=== PATIENT | female | born 1975 | race Caucasian/White ===

== ENCOUNTER 2024-06-03 16:25 | Outpatient (CLI) | payer OTHER, SELFPAY ==
--- OUTSIDE RECORDS SUMMARY | 2024-06-03 16:28 | XMS_ITS | Encounter Summary ---
Author Organization [facility] Address [address] [place] [address] Phone Care Team Providers Care Global Clinical Leader Name Role Phone Shayy Church MD Primary Care Provider [phone] Yumiko Perera MD Unavailable + -[phone] Nanda Ch Primary Care Provider + Lilly Genao APRN, [facility] Unavailable Jayro Reynolds MD Unavailable Reason for Referral * Radiology Services (Routine) - Closed Specialty Diagnoses / Procedures Referred By Gal parekh Referred To Contact Radiology Diagnoses Preoperative examination Pre-op testing Procedures EKG 12 LEAD Josef Luevano MD Phone: tel: fax: Referral ID Status Reason Start Date Expiration Date Visits Re quested Visits Authorized [id number] Closed 07/13/2021 1 1 * Radiology Services (Routine) - Closed Specialty Diagnoses / Procedures Referred By Gal parekh Referred To Contact Radiology Diagnoses Preoperative examination Pre-op testing Procedures XR CHEST 2 VIEWS Josef Luevano MD Phone: tel: fax: Referral ID Status Reason Start Date Expiration Date Visits Re quested Visits Authorized [id number] Closed 07/13/2021 1 1 Encounter Details Date Type Department Care Team (Latest Contact Info) Description 07/13/2021 Transcribe Orders [facility] Preop/Pacu II [address] [place] [address] Josef Luevano MD [address] [place] [address] Preoperative examination (Primary Dx); Pre-op testing Social History Tobacco Use Types Packs/Day Years Used Date Smoking Tobacco: Never Smokeless Tobacco: Never Alcohol Use Standard Drinks/Week Comments No 0 (1 standard drink = 0.6 oz pur e alcohol) Personal choice AUDIT-C Answer Date Recorded Q1: How often do you have a drink containing alc ohol? Never 01/15/2020 Average Number of Drinks Not on file 020 Frequency of Binge Drinking Not on file 12/24 PHQ-2 Answer Date Recorded Total Score - Questions 1-9 0 020 04/2021 Education Answer Date Recorded What is the highest level of school you have completed or the highest degree you have received? 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 No / Unsure 07/13/2021 11:07 AM CDT documented as of this encounter Plan of Treatment Upcoming Encounters Date Type Department Care Team (Late st Contact Info) Description 06/11/2024 7:00 AM MEDIA STRATEGIST Appointment [facility] Mammography [address] [place] [address] Nanda Ch, PAC [address] [place] [address] 10/04/2024 3:00 PM CDT Office Visit [facility] - Family Medicine [facility] [address] [place] [address] Nanda Ch, PAC [address] [place] [address] documented as of this encounter Goals Goal Patient Goal Type Associated Problems Recent Progress Patient-Stated? Author Patient to have decrease in the frequency and intensity of anxious symptoms over next 10 sessions Behavioral Health On track(2020 11:26 AM MEDIA STRATEGIST) No Roro Monae, RANDI Note: to have reduction of anxiety symptoms. Goal Reviewed with: patient Readiness to change: Thinking about making a change Department associated with goal: [facility] Steps to achieve goal: to attend monthly, counseling sessions. to identify, verbalize and process at least three contributing factors/triggers to anxiety. to identify and verbalize at least three actions/skills to prevent and/or cope with anxiety. to put into action, at least one time weekly, for one month, an action/skill to prevent and or cope with anxiety. documented as of this encounter Results * XR CHEST 2 VIEWS (07/13/2021 1:27 PM CDT) Anatomical Region Laterality Modality Chest N/A Digital Radiogra phy 07/13/2021 3:43 PM CDT Impressions 07/13/2021 3:46 PM CDT IMPRESSION: No active cardiopulmonary disease. Narrative 07/13/2021 3:46 PM CDT EXAM DESCRIPTION: XR CHEST 2 VIEWS REASON FOR STUDY: Encounter for other preprocedural examination , right shoulder surgery preoperative TECHNIQUE: Frontal and lateral radiographic views of the chest acquired. COMPARISON: 06/15/2021 FINDINGS: LUNGS/PLEURA: No focal consolidation or pneumothorax. No pleural effusion. HEART/MEDIASTINUM: Heart size is normal. Normal mediastinal and hilar contours. HARDWARE/LINES/TUBES: None. BONES: No acute findings. OTHER: No other significant finding. THIS IS AN ELECTRONICALLY VERIFIED FINAL REPORT 07/13/2021 3:43 PM - Electronically signed by Brandon Thompson M.D. RW: CHARITY Report ID: [id number] Reading Location: [id number] Procedure Note Brandon Thompson MD - 07/13/2021 EXAM DESCRIPTION: XR CHEST 2 VIEWS REASON FOR STUDY: Encounter for other preprocedural examination , right shoulder surgery preoperative TECHNIQUE: Frontal and lateral radiographic views of the chest acquired. COMPARISON: 06/15/2021 FINDINGS: LUNGS/PLEURA: No focal consolidation or pneumothorax. No pleural effusion. HEART/MEDIASTINUM: Heart size is normal. Normal mediastinal and hilar contours. HARDWARE/LINES/TUBES: None. BONES: No acute findings. OTHER: No other significant finding. THIS IS AN ELECTRONICALLY VERIFIED FINAL REPORT 07/13/2021 3:43 PM - Electronically signed by Brandon Thompson M.D. RW: CHARITY Report ID: [id number] Reading Location: [id number] IMPRESSION: No active cardiopulmonary disease. Josef Luevano MD IMG DIAGNOSTIC ORDERABLES Final Result * EKG 12 LEAD (07/13/2021 1:11 PM CDT) Ventricular Rate BPM EXTERNAL EKG Atrial Rate BPM EXTERNAL EKG P-R Interval 146 ms EXTERNAL EKG QRS Duration 74 ms EXTERNAL EKG Q-T Duration 410 ms EXTERNAL EKG QTC CALCULATION 440 ms EXTERNAL EKG P [place] -39 degrees EXTERNAL EKG R [place] 76 degrees EXTERNAL EKG T [place] 7 degrees EXTERNAL EKG 07/13/2021 1:11 PM CDT Impressions EXTERNAL EKG - 07/14/2021 8:56 AM CDT Sinus rhythm Low QRS voltages in precordial leads Comparison Summary: Descriptive differences only Summary: Abnormal ECG Compared with:06/15/2021 11:00 AM; 11/01/2018 10:23 AM No significant changes noted Confirmed by Mita Baker [id number] on 07/14/2021 8:56:50 AM Narrative Procedure Note Lauren Fan MD - 07/14/2021 IMPRESSION: Sinus rhythm Low QRS voltages in precordial leads Comparison Summary: Descriptive differences only Summary: Abnormal ECG Compared with:06/15/2021 11:00 AM; 11/01/2018 10:23 AM No significant changes noted Confirmed by Mita Baker [id number] on 07/14/2021 8:56:50 AM Josef Luevano MD IMG ECG ORDERABLES Final Result Performing Organization Address City/[facility]/ZIP Co de Phone Number EXTERNAL EKG * C-REACTIVE PROTEIN (CRP) QUANT (07/13/2021 1:02 PM CDT) C-REACTIVE PROTEIN 0.49 <0.50 mg/dL 07/13/2021 3:14 PM CDT [facility] Blood Venipuncture / Unknown 07/13/2021 1:02 PM CDT 07/13/2021 1:16 PM CDT Josef Luevano MD CHEMISTRY ORDERABLES Final Resul t [facility] [address] [place] [address] * ERYTHROCYTE SEDIMENTATION RATE (ESR) (07/13/2021 1:02 PM CDT) ESR (SED RATE, ERYTHROCYTE SEDIMENTATION RATE) 11 <20 mm/h 07/13/2021 1:25 PM CDT [facility] Comment: Patients presenting with increased level of fibrinogen, gamma globulins, or abnormally shaped RBCs could affect the results for the erythrocyte sedimentation rate (ESR). Results should be clinically correlated. Blood Venipuncture / Unknown 07/13/2021 1:02 PM CDT 07/13/2021 1:17 PM CDT Josef Luevano MD HEMATOLOGY ORDERABLES Final Resu lt Performing Organization Address [facility]/ZIP Co de Phone Number [facility] [address] [place] [address] * URIC ACID (BLOOD ASSAY) (07/13/2021 1:02 PM CDT) URIC ACID 5.7 2.4 - 5.7 mg/dL 07/13/2021 3:14 PM CDT [facility] Blood Venipuncture / Unknown 07/13/2021 1:02 PM CDT 07/13/2021 1:16 PM CDT Josef Luevano MD CHEMISTRY ORDERABLES Final Resul t Performing Organization Address [facility] Co de Phone Number [facility] [address] [place] [address] * ANTINUCLEAR ANTIBODY (MAGDALENE), TITER IF POS (07/13/2021 1:02 PM CDT) Pathologist [facility] MAGDALENE SCREEN Negative Negative titer 07/14/2021 2:22 PM CDT [facility] Comment: Antinuclear autoantibodies not detected by IFA at a 1:80 screening dilution of HEp-2 cells. Blood Venipuncture / Unknown 07/13/2021 1:02 PM CDT 07/13/2021 1:17 PM CDT Josef Luevano MD IMMUNOLOGY ORDERABLES Final Resu lt Performing Organization Address City/[facility]/ZIP Co de Phone Number [facility] [address] [place] [address], [place] * RHEUMATOID FACTOR (RFQT) QUANT (07/13/2021 1:02 PM CDT) RHEUMATOID FACTOR QT <11 <14 IU/mL 07/13/2021 3:14 PM CDT [facility] Blood Venipuncture / Unknown 07/13/2021 1:02 PM CDT 07/13/2021 1:16 PM CDT Narrative [facility] - 07/13/2021 3:14 PM CDT RHEUMATOID FACTORS CAN BE FOUND IN RHEUMATOID ARTHRITIS, SYPHILIS, VIRAL INFECTIONS, LEPROSY, CHRONIC LIVER DISEASE, NEOPLASMS, AND OTHER INFLAMMATORY CONDITIONS. RF PREVALENCE ALSO INCREASES WITH AGE. THUS A POSITIVE TEST IS NOT RESTRICTED TO RA. CONVERSELY, A NEGATIVE TEST DOES NOT RULE OUT RA, RHEUMATOID FACTORS ARE NOT DETECTABLE IN 10% OF ADULTS WITH THE DISEASE. us Josef Luevano MD CHEMISTRY ORDERABLES Final Resul t [facility] [address] [place] [address] documented in this encounter Visit Diagnoses Diagnosis Preoperative examination- Primary Preoperative examination, unspecified Pre-op testing Preoperative examination, unspecified Preoperative examination Preoperative examination, unspecified Pre-op testing Preoperative examination, unspecified Preoperative examination Preoperative examination, unspecified Pre-op testing Preoperative examination, unspecified Visit for screening mammogram Other screening mammogram documented in this encounter Additional Health Concerns Infection Onset Date Last Indicated Resolved Time COVID - 19 05/28/2023 05/28/2023 06/07/2023 12:1 6 AM MEDIA STRATEGIST Respiratory Rule-Out 05/28/2023 05/28/2023 024 2:29 PM MEDIA STRATEGIST Assessment Noted Time PHQ-9 Depression Total Score: 0 05/25/19 12:37 PM MEDIA STRATEGIST documented as of this encounter Care Teams Global Clinical Leader Relationship Specialty Start Date End Date Shayy Church MD [address] [place] [address] PCP - General Family Medicine 06/15/17 04/09/23 Nanda Ch, ASHLEY [address] [place] [address] PCP - General Physician Thermostat Repairer 04/10/23 Yumiko Perera MD [address] [place] [address] Consulting Physician Obstetrics & Gynecology 11/29/17 Lilly Genao APRN, [employer] [facility] [address] [place] [address] Nurse Practitioner Advanced Practice Nurse 11/24/22 Jayro Reynolds MD [address] [address] Consulting Physician Clinical Cardiac Electrophysiology 05/17/24 documented as of this encounter
--- OUTSIDE RECORDS SUMMARY | 2024-06-03 16:28 | XMS_ITS | Clinical Summary ---
Author Organization [facility] Address [facility] [place] [address] Care Team Providers Care Gang Drill Press Operator Name Role Phone Shayy Church MD Primary Care Provider Allergies Active Allergy Reactions Criticality Noted Date Comments Cephalexin Hives,Rash Medium 01/31/2019 Latex Rash Medium 07/01/2022 Sulfamethoxazole Fever,Vomiting,Hive s Medium Sulfamethoxazole-Trimethop rim Fever,Hives,Rash,Vo miting High 11/30/2009 Trimethoprim Fever,Vomiting,Naus ea only Medium Other reaction(s): Fever, Vomiting, hives Medications ketorolac 15 mg/mL cartridge inject 2 milliliter by intramuscular route every 6 hours as needed for up to 5 days total use 0 Cartridge 0 03/24/20 16 Active Additional Information Patient not taking.Reported on 09/09/2022 fluticasone propionate (FLONASE) 50 mcg/actuation nasal spray Administer 1-2 sprays into affected nostril(s) daily 06/15/19 18 Active ondansetron ODT (ZOFRAN-ODT) [address] 4 mg under the tongue every 8 hours as needed 07/17/19 15 Active norethindrone-e.es tradioL-iron (Blisovi 24 Fe) 1 mg-20 mcg (24)/75 mg (4) per tabletIndications: Oral contraceptive pill surveillance Take 1 tablet by mouth daily 84 tablet 4 11/04/19 20 Active albuterol HFA (PROVENTIL HFA,VENTOLIN HFA,PROAIR HFA) 90 mcg/actuation inhaler Active azelastine (ASTELIN) 137 mcg (0.1 %) nasal spray Active FLUoxetine (PROzac) 20 mg capsule Take 1 capsule (20 mg total) by mouth daily Active traZODone (DESYREL) 50 mg tablet trazodone 50 mg tablet Active hydrOXYchloroQUINE (PLAQUENIL) 200 mg tablet Take 200 mg by mouth 2 (two) times a day Active ARIPiprazole (ABILIFY) 10 mg tablet Take 1 tablet (10 mg total) by mouth nightly at bedtime 08/09/19 23 Active lamoTRIgine (LaMICtal) 25 mg tablet TAKE 1 TABLET BY MOUTH DAILY FOR 2 WEEKS THEN TAKE 2 TABLETS BY MOUTH DAILY 08/04/19 23 Active spironolactone (ALDACTONE) 50 mg tablet Take 1 tablet (50 mg total) by mouth daily 03/23/[address] (PROTONIX) 40 mg EC tablet Take 1 tablet (40 mg total) by mouth 2 (two) times a day 03/12/20 23 Active Active Problems Problem Noted Date Diagnosed Date Primary osteoarthritis of right knee 01/03/2023 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 Assessment & Plan (07/06/2021 2:34 PM CDT): Referral to Speech therapy for Spasmodic Dysphonia Hiatal hernia 01/04/2021 Encounter for colonoscopy du e to history of adenomatous colonic polyps 10/30/2020 Recurrent Clostridioides difficile diarrhea 11/2020 Gastroesophageal reflux disease without esophagi tis 04/04/2019 Esophagitis 11/29/2017 Anxiety 06/15/2017 Chronic bilateral low back pain without sciatica 03/10/2017 Pain in both hands 01/13/2017 Rheumatoid arthritis of mult iple sites without rheumatoid factor (CMS/HCC) 11/15/2016 High risk medication use 11/15/2016 Elevated liver enzymes 11/15/2016 Allergy to sulfa drugs 11/15/2016 BMI 40.0-44.9, adult 11/15/2016 Long-term current use of hig h risk medication other than anticoagulant 10/10/2016 Arthralgia 10/10/2016 Rash 10/10/2016 Cellulitis and abscess of groin 03/31/2016 Overview (07/29/2016): Cellulitis and abscess of groin Generalized anxiety disorder 01/23/2015 Essential hypertension, benign 08/20/2014 Migraine 04/05/2014 Overview (07/29/2016): Migraine Asthma 11/30/2009 Migraine with aura 09/08/2008 Resolved Problems Problem Noted Date Diagnosed Date Resolved Date Non morbid obesity due to excess calories 11/15/2016 06/29/2018 Rheumatoid arthritis involvi ng multiple sites ([facility]) 10/10/2016 04/21/2017 Surgical History Surgery Date Site/Laterality Comments CHOLECYSTECTOMY 04/24/2009 - 04/23/2010 DILATION AND CURETTAGE OF UTERUS 04/24/2006 - 04/23/2007 miscarriage KNEE ARTHROSCOPY 04/24/1998 - 04/23/1999 Right KNEE ARTHROSCOPY 04/24/1996 - 04/23/1997 Left SHOULDER ARTHROSCOPY W/ SUBACROMIAL DECOMPRESSION AND DISTAL CLAVICLE EXCISION 04/24/2010 - 04/23/2011 Left CERVICAL BIOPSY W/ LOOP ELEC TRODE EXCISION 04/24/2007 - 04/23/2008 PILONIDAL CYSTECTOMY 04/24/2014 - 04/23/2015 KNEE ARTHROSCOPY SHOULDER SURGERY Medical History Medical History Date Comments Migraine headache Rheumatoid arthritis (HCC) Seasonal allergies Asthma Abnormal Pap smear of cervix 2006 PTSD (post-traumatic stress disorder) Anxiety Gastric reflux Hiatal hernia Family History Medical History Relation Name Comments Raynaud syndrome Brother Hypertension Father Heart failure Maternal Grandmother Osteopenia Mother Heart disease Paternal Grandfather COD Mitral valve prolapse Sister Relation Name Status Comments Brother Father Maternal Grandmother Mother Paternal Grandfather Sister (Age 47) Social History Tobacco Use Types Packs/Day Years Used Date Smoking Tobacco: Never Smokeless Tobacco: Never Tobacco Cessation:Counseling Given: Yes Alcohol Use Standard Drinks/Week Comments No 0 (1 standard drink = 0.6 oz pur e alcohol) AUDIT-C Answer Date Recorded Q1: How often do you have a drink containing alcohol? Never 10/02/2023 Q2: How many drinks containi ng alcohol do you have on a typical day when you are drinking? Patient does not drink Q3: How often do you have si x or more drinks on one occasion? 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 Not on file Not on file Obstetrics History Para Term AB IAB SAB Ectopic Multiple Livin g Live Births 1 0 0 0 1 0 1 0 0 0 0 Date Outcome GA Total Labor Labor/2nd/3rd Weight Sex Type Anes PTL Chichi A1 A5 Name Clin SAB Last Filed Vital Signs Vital Sign Reading Time Taken Comments Blood Pressure 130/82 10/02/2023 10:48 AM CDT Pulse 72 10/02/2023 10:48 AM CDT Temperature 36.2 C (97.1 F) 07/06/2021 2:10 PM CDT Respiratory Rate 18 10/02/2023 10:48 AM CDT Oxygen Saturation 96% 07/06/2021 2:10 PM CDT Inhaled Oxygen Concentration - - Weight 131.5 kg (290 lb) 10/02/2023 10:48 AM CDT Height 172.7 cm (5' 8 ) 10/02/2023 10:48 AM CDT Body Mass Index 44.09 10/02/2023 10:48 AM CDT Plan of Treatment Health Maintenance Due Date Last Done Comments Colon Cancer Screening-Colonoscopy 1977 Depression Screening 1977 Hepatitis C Screening 1977 Pneumococcal vaccine <65 (1 of 2 - PCV) 1983 Hepatitis B Screening 1995 Zoster Vaccine (1 of 2) 1996 DTaP/Tdap/Td Vaccine (2 - Td or Tdap) 03/17/2018 03/17/2008 Cervical Cancer Screening 11/03/20202019, 04/21/2017, 03/25/2016, Additional history exists Regular Well Visit/Exam 18-64 11/03/2020 11/04/2019, 06/29/2018, 04/21/2017 Influenza Vaccine (#1) 2023 3, 01/28/2022, 01/12/2021, Additional history exists Breast Cancer Screening-Mammogram 2024 2023, 2023, 05/04/2022, Additional history exists HPV Vaccines Aged Out No longer eligi ble based on patient's age to complete this topic Procedures Procedure Name Priority Date/Time Associated Diagnosis Comments IMAGING PAP AND HPV MRNA E6/E7 Routine 11/04/2019 1:01 PM CDT Screening for malignant neoplasm of the cervix SCREENING MAMMOGRAM 2D BILATERAL Schedule Routine, Read Routine (OP Routine) 11/04/2019 12:28 PM CDT Breast cancer screening by mammogram from Last 3 Months or Most Recently Relevant to Health Maintenance Results * Imaging Pap and HPV mRNA E6/E7 (11/04/2019 1:01 PM CDT) CLINICAL INFORMATION: [facility] Comment:Information not prov ided LMP [facility] Comment:10/07/19 Previous Pap [facility] Comment:2016 - NEGATIVE Prev. Bx [facility] Comment:INFORMATION NOT PROV IDED SOURCE: [facility] Comment:Cervix, Endocervix Pap, specimen adequacy [facility] Comment: Satisfactory for evaluation. Endocervical/transformation zone component present. HPV interp [facility] Comment:Negative for intraep ithelial lesion or malignancy. COMMENTS [facility] Comment: This Pap test has been evaluated with computer assisted technology. Dry Finisher Padilla [facility] Comment: CAROL, CT(ASCP) CT screening location: [place] [address] [place] [address] Review marketing campaign analyst [facility] Comment: MLO, CT(ASCP) CT screening location: [place] [address] [address] Montoya [facility] Comment [facility] Comment: EXPLANATORY NOTE: The Pap is a screening test for cervical cancer. It is not a diagnostic test and is subject to false negative and false positive results. It is most reliable when a satisfactory sample, regularly obtained, is submitted with relevant clinical findings and history, and when the Pap result is evaluated along with historic and current clinical information. Human papillomavirus RNA, High Risk E6/E7 Not Detected Not Detected [facility] Comment: This test was performed using the APTIMA HPV Assay ([employer] This assay detects E6/E7 viral messenger RNA (mRNA) from 14 high-risk HPV types (16,18,31,33,35,39,45,51,52,56,58,59,66,68). The analytical performance characteristics of this assay have been determined by [employer]. The modifications have not been cleared or approved by the FDA. This assay has been validated pursuant to the CLIA regulations and is used for clinical purposes. Fluid 11/04/2019 1:01 PM CDT 11/05/2019 5:22 AM CDT Naomi Stern MD LAB PATHOLOGY ORDERAB LES Final Result [facility] [address] [place] [address] [facility] [address] [place] [address] * Screening Mammogram 2D Bilateral (11/04/2019 12:28 PM CDT) Anatomical Region Laterality Modality Breast Bilateral Mammography Narrative 11/12/2019 2:34 PM CDT BILATERAL DIGITAL MAMMOGRAPHY The present examination has been compared to prior imaging studies dated in 06/29/2018. Mammography Findings CAD (computer-aided detection) software was utilized. The breasts are almost entirely fat. No masses, significant calcifications or other abnormalities are seen. Impression There is no mammographic evidence of malignancy. Screening mammogram in 1 year is recommended. BI-RADS Category 1: Negative PATIENT LETTER SENT Naomi Stern MD IMG MAMMO PROCEDURES Final Result from Last 3 Months or Most Recently Relevant to Health Maintenance Insurance AETNA [facility] PPO [place] [facility] OPEN ACCESS [facility] ACCESS [facility] Care Teams Gang Drill Press Operator Relationship Specialty Start Date End Date Shayy Church MD PCP - General Family Medicine 06/22/18
--- OUTSIDE RECORDS SUMMARY | 2024-06-03 16:28 | XMS_ITS | Referral Summary ---
Author Organization [facility] Address [facility] [place] [address] Care Team Providers Care Supervisor Electronics Processing Name Role Phone Shayy Church MD Primary [...] 06/29/2018 Rheumatoid arthritis involvi ng multiple sites (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 Bx [facility] Comment:INFORMATION NOT PROV IDED SOURCE: [facility] Comment:Cervix, Endocervix Pap, specimen adequacy [facility] Comment: Satisfactory for evaluation. Endocervical/transformation zone component present. HPV interp [facility] Comment:Negative for intraep ithelial lesion or malignancy. COMMENTS [facility] Comment: This Pap test has been evaluated with computer assisted technology. Hydrographic Engineer Que [facility] Comment: CAROL, CT(ASCP) CT screening location: [place] [address] [place] [address] Review manager club [facility] Comment: MLO, CT(ASCP) CT screening location: [place] [address] [address] Montoya [facility] Comment [facility] Comment: EXPLANATORY NOTE: The Pap is [...] High Risk E6/E7 Not Detected Not Detected [facility] [employer] [facility] Comment: This test was performed using the APTIMA HPV Assay ([employer] This assay detects E6/E7 viral messenger RNA (mRNA) from 14 high-risk HPV types (16,18,31,33,35,39,45,51,52,56,58,59,66,68). The analytical performance characteristics of this assay have been determined by [employer]. The modifications have not been cleared or approved by the FDA. This assay has been validated pursuant to the CLIA regulations and is used for clinical purposes. Fluid 11/04/2019 1:01 PM CDT 11/05/2019 5:22 AM CDT Naomi Stern MD LAB PATHOLOGY ORDERAB LES Final Result [facility] [address] [place] [address] [facility] [address] [place] [address] * Screening Mammogram 2D Bilateral (11/04/2019 12:28 [...] Recently Relevant to Health Maintenance Insurance [employer] [facility] PPO [facility] OPEN ACCESS [facility] CHOICE [employer]IG[employer] Care Teams Supervisor Electronics Processing Relationship Specialty Start Date End Date Shayy Church MD PCP - General Family Medicine 06/22/18
--- OUTSIDE RECORDS SUMMARY | 2024-06-03 16:28 | XMS_ITS | Encounter Summary ---
Author Organization [facility] Address [address] [place] [address] Phone Care Team Providers Care Welfare Officer Name Role Phone Shayy Church MD Primary Care Provider [phone] Yumiko Perera MD Unavailable + [phone] Nanda Ch Primary Care Provider + Lilly Genao APRN, MANAGER COMPLETIONS Unavailable Jayro Reynolds MD Unavailable Encounter Details Date Type Department Care Team (Late st Contact Info) Description 07/13/2021 Transcribe Orders [facility] Preop/Pacu II [address] [place] [id number] Saul Coley, DO [address] [place] [address] Pre-op testing (Primary Dx) Social History Tobacco Use Types Packs/Day Years [...] Recorded Total Score - Questions 1-9 0 04/2021 Education Answer Date Recorded What is the highest level of school you have completed or the highest degree you have received? Master's degree (e.g., MA, MS, Sly, MEd, HOUSE SERVANT, DIANA) 12/11/2019 Sexually Active Control Partners Comments [...] st Contact Info) Description 06/11/2024 7:00 AM NETWORKING TECHNOLOGY INSTRUCTOR Appointment [facility] Mammography [address] [place] [address] Nanda Ch, PAC [address] [place] [address] 10/04/2024 3:00 PM CDT Office Visit [facility] - Family [facility] [address] [place] [address] Nanda Ch PAC [address] [place] [address] documented as of this encounter Goals Goal Patient Goal Type Associated Problems Recent Progress Patient-Stated? Author Patient to have decrease in the frequency and intensity of anxious symptoms over next 10 sessions Behavioral Health On track(2020 11:26 AM NETWORKING TECHNOLOGY INSTRUCTOR) No Norma Monaeci M, COVERER Note: to have reduction of anxiety symptoms. Goal Reviewed with: patient Readiness to change: Thinking about making a change Department associated with goal: [facility] Steps to achieve [...] documented as of this encounter Results * SARS-COV-2 BY MOLECULAR (07/26/2021 3:08 PM CDT) SARSCOV2 NOT DETECTED (Referenc e Range for this test is Not Detected) [facility] ID NOW B 07/26/2021 3:[address] [facility] Comment:This test was perfor med by a MOLECULAR, NON-PCR method Other NASAL STRUCTURE / Unknown Non-Phlebotomy Collection / Unknown 07/26/2021 3:08 PM CDT 07/26/2021 3:[address] [facility] - 07/26/2021 3:51 PM CDT This test has been authorized by the FDA under an Emergency Use Authorization (EUA) only. Negative results should be treated as presumptive and, if inconsistent with clinical signs and symptoms or necessary for patient management, the patient should be tested with an alternative molecular assay. Negative results do not preclude SARS-CoV-2 infection or any other respiratory pathogen. Additional information for Clinicians can be found at: https://www.fda.gov/media/193340/download Additional information for Patients can be found at: https://www.fda.gov/media/405188/download Saul Coley DO MICROBIOLOGY - GENE RAL ORDERABLES Final Result [facility] [address] [place] [address] documented in this encounter Visit Diagnoses Diagnosis Pre-op testing- Primary Preoperative examination, unspecified Visit for screening mammogram Other screening mammogram documented in this encounter Additional Health Concerns Infection Onset Date Last Indicated Resolved Time COVID - 19 05/28/2023 05/28/2023 06/07/2023 12:1 6 AM NETWORKING TECHNOLOGY INSTRUCTOR Respiratory Rule-Out 05/28/2023 05/28/2023 024 2:29 PM NETWORKING TECHNOLOGY INSTRUCTOR Assessment Noted Time PHQ-9 Depression Total Score: 0 05/25/19 22 12:37 PM NETWORKING TECHNOLOGY INSTRUCTOR documented as of this encounter Care Teams Welfare Officer Relationship Specialty Start Date End Date Shayy Church MD [address] [place] [address] PCP - General Family Medicine 06/15/17 04/09/23 Nanda Ch PAC [address] [place] [address] PCP - General Physician Military Logistics Specialist 04/10/23 Yumiko Perera MD [address] [place] [address] Consulting Physician Obstetrics & Gynecology 11/29/17 Lilly Genao APRN, MANAGER COMPLETIONS [address] [facility] [place] [address] Nurse Practitioner Advanced Practice Nurse 11/24/22 Jayro Reynolds MD [address] [place] [address] [address] Consulting Physician Clinical Cardiac Electrophysiology 05/17/24 documented as of this encounter
--- OUTSIDE RECORDS SUMMARY | 2024-06-03 16:28 | XMS_ITS ---
Author Organization [facility] Address [address] [address] [address] [place] [address] Care Team Providers Care Newspaper Publisher Name Role Phone Nanda Cuevas Primary Care Provider Dave MedranoAdriana Unavailable [phone] Allergies Allergen (clinical drug ingredient) Drug/Non Drug Allergy documented on EMR Reaction Allergy Type Onset Date Status sulfamethoxazole / trimethoprim Bactrim Unknown Drug Allergy 08/25/2017 Active Ceftin Unknown Drug Allergy 02/17/2022 Active Keflex Unknown Drug Allergy 02/17/2022 Active REASON FOR VISIT Infusion, Simponi, 239mg, 5 vials, YD Medications Medication SIG (Take, Route, Frequency, Duration) Notes Start Date End Date Status traZODone HCl 50 MG prn Oral Active FLUoxetine HCl 20 MG take 1 tablet (20 mg) by oral route once daily Oral 1 Active Dupixent Pen 300 mg/2 mL inject 2 milliliters (300 mg) by subcutaneous route every 2 weeks in the abdomen, thigh, or upper arm rotating injection sites subcutaneous [id number] *Reorder from [employer] for eRx and Interaction Alerts* Active Atenolol 25 MG TAKE 1/2 TABLET BY MOUTH DAILY Oral for 30 Days Active Lo Loestrin Fe 1 MG-10 MCG / 10 MCG Oral for 28 Days Active Tylenol 8 Hour 650 MG Oral Active Hydroxychloroquine Sulfate 200 MG 1 Oral twice a day for 90 days Active Vital Signs Temperature 97.8 degrees Fahrenheit 04/03/20 24 Blood pressure systolic 139 mm Hg 04/03/20 24 Blood pressure diastolic 87 mm Hg 024 Heart Rate 111 /min 04/03/2024 Height 68 in 04/03/2024 Weight 248 lbs 04/03/2024 BMI 37.7 kg/m2 04/03/2024 Height-cm 172.72 cm 04/03/2024 Weight-kg 112.49 kg 04/03/2024 Encounters Encounter Location Date Provider Diagnosis [facility] [address] [place] [address] 04/03/2024 Adriana Medrano Rheumatoid arthritis without rheumatoid factor, multiple sites M06.09 Assessments Encounter Date Diagnosis (ICD Code) Assessment Notes Treatment Notes Treatment Clinical Notes Section Notes 04/03/2024 Rheumatoid arthritis without rheumatoid factor, multiple sites (ICD-10 - M06.09) Plan Of Treatment Next Appt Details Follow Up: 2 Months, Reason: Provider Name:Adriana Medrano, 06/06 08:30:00 AM, [address], [address], [place], [address], Progress Notes * Yumiko STOUT EDOB:[birth year] (48 yo F)Acc No.[id number]:04/03/2024 Simponi Infusion Patient: Yumiko BASILIO Provider: Jillian MEDRANO MD :1975 A ge:48 Y S ex:Female Date:04/03/2024 Address:[address] [place] [address] Pcp:RIANNA Chowdary Subjective: * Chief Complaints: * I nfusion, Simponi, 239mg, 5 vials, YD * HPI: I nfusion: Infusion Record T ype of Infusion _ ____,Simponi Aria,?What is the dosage . 225mg dose. 25mg waste., H ow is the dose calculated . 2mg/kg, A uthorized by _ ____,Gerardo Street umber of vials to reconstitute . 5, I nfusion type _ ____,Simponi Aria, A mount . 225mg, M anufacturer _ ___ Mohan, E xpiration date 09/2026, L ot number _ __ [id number], S terile water (number of vials) . n/a, S terile water lot number N /A, s terile water MFG N /A. P re Infusion Assessment T B Screening Results PPD N /A, Q uantiferon TB Gold Results N egative on 08/16/2023, C hest Xray Results N /A, R ecent exposure to TB _ ____,N/A, A ny illness now _ ____,None. S kin Conditon D oes the patient has any skin condition no. P revious Infusion D ate of last infusion 1 , P revious infusion type? ,Simponi Aria, R eaction N o, W as patient pre treated _ ____,N/A, R esponse to previous infusion _ ____ Agrees with plan of care. I V INSERTION C atheter brand _ ___ [id number]-M-[id number], C atherter Gauge _ ____,24 ga, N eedle Length _ ___,3/4 inch, I V site accessed _ ___ RAC, N umber of attempts to access vein/port 1 , P remedication _ ____ n/a, T charly given _ __ n/a. P ATIENT MONITORING T charly infusion initated _ __ 1440, R ate of infusion _ __ 200cc/hour, I nfusion end time: _ ____ 1510. D ISPOSITION T charly IV discontinued: _ __ 151, A mount of drug administered _ ___ 225mg, N ext Infusion Date Scheduled: 0 06/06/2024. * Medical History: * Surgical History: Flor toledo, Date of Procedure: Jan 04, 2021; 2021-01-26 * Hospitalization/Major Diagno stic Procedure: * Social History: M igrated Social History: M igrated Social History: :: No Children , Exercise :: None Lately :: note : 01/26/2021 - none lately, was walking, Marital Status :: Single :: note : - Bella 11/22/2017 , Occupation :: employed :: note : - [employer] 11/22/2017 , Substance Use :: Alcohol-Does not give any significant history , Substance Use :: Tobacco :: Never. * Medications: T akingHydroxychloroquine Sulfate 200 MG Tablet 1 Oral twice a day Tylenol 8 Hour 650 MG Tablet Extended Release Oral traZODone HCl 50 MG Tablet prn Oral Dupixent Pen 300 mg/2 mL pen injector inject 2 milliliters (300 mg) by subcutaneous route every 2 weeks in the abdomen, thigh, or upper arm rotating injection sites subcutaneous [id number] , Notes to Pharmacist: *Reorder from [facility] for eRx and Interaction Alerts*FLUoxetine HCl 20 MG Tablet take 1 tablet (20 mg) by oral route once daily Oral 1 Atenolol 25 MG Tablet TAKE 1/2 TABLET BY MOUTH DAILY Oral Lo Loestrin Fe 1 MG-10 MCG / 10 MCG Tablet Oral Taking Hydroxychloroquine Sulfate 200 MG Tablet 1 Oral twice a day Taking Tylenol 8 Hour 650 MG Tablet Extended Release Oral Taking traZODone HCl 50 MG Tablet prn Oral Taking Dupixent Pen 300 mg/2 mL pen injector inject 2 milliliters (300 mg) by subcutaneous route every 2 weeks in the abdomen, thigh, or upper arm rotating injection sites subcutaneous [id number]-08 , Notes to Pharmacist: *Reorder from [facility] for eRx and Interaction Alerts*Taking FLUoxetine HCl 20 MG Tablet take 1 tablet (20 mg) by oral route once daily Oral 1 Taking Atenolol 25 MG Tablet TAKE 1/2 TABLET BY MOUTH DAILY Oral Taking Lo Loestrin Fe 1 MG-10 MCG / 10 MCG Tablet Oral * Allergies: K eflex: Allergy - Onset Date 02/17/2022actrim: Allergy - Onset Date 08/25/2017Ceftin: Allergy - Onset Date 02/17/2022 Objective: * Vitals: B P:139/87mm Hg, HR:111/min, Temp:97.8F, Wt:248lbs, Wt-k.49 kg, Ht: 68 in, Ht-cm: 172.72 cm, BMI:37.7Index, Body Surface Area: 2.32. Assessment: * Assessment: 1. R heumatoid arthritis without rheumatoid factor, multiple sites - M06.09 (Primary) ? Plan: * Treatment: * Procedure Codes: J 1602 INJECTION GOLIMUMAB 1 MG FOR IV USE, Units: 225.00 52742 THER/PROPH/DIAG IV INF, [id number] INJECTION GOLIMUMAB 1 MG FOR IV USE, Units: 25.00 , Modifiers: JW * Follow Up: 2 Months * Billing Information: * Visit Code: * Procedure Codes: J1602 INJECTION GOLIMUMAB 1 MG FOR IV USE. Units: 225.00. 61139 THER/PROPH/DIAG IV INF, INIT. J1602 INJECTION GOLIMUMAB 1 MG FOR IV USE. Units: 25.00. Modifiers: JW * CH INSPECTOR Electronically co-signed by Adriana Medrano MD on 04/03/2024 at 04:32 PM CLUTCH INSPECTOR Sign off status: Completed true * Provider: Jillian MEDRANO MD Date: 06/04/2023 Generated for Cherelle kingsley/Anthony/Vick on: 0 06/03/2024 04:28 PM CLUTCH INSPECTOR History and Physical Notes * HPI (History of Present Illness) Category Sub-Category Detail Notes Category Not es Infusion Infusion Record Type of Infusion: ,Simponi Aria What is the dosage: . 225mg dose. 25mg w aste. How is the dose calculated: . 2mg/kg Authorized by: Dr. Medrano Number of vials to reconstitute: . 5 Infusion type: ,Simponi Aria Amount: . 225mg Lead Software Tester: ____ Mohan Expiration date: 09/2026 Lot number: ___ [id number] Sterile water (number of vials): . n/a Sterile water lot number: N/A sterile water MFG: N/A Pre Infusion Assessment TB Screening Results PPD : N/A Quantiferon TB Gold Results: Negative on 08/16/2023 Chest Xray Results: N/A Recent exposure to TB: ,N/A Any illness now: ,None Skin Conditon Does the patient has any skin co ndition: no Previous Infusion Date of last infusion: 024 Previous infusion type: ,Simponi Ar ia Reaction: No Was patient pre treated: ,N/A Response to previous infusion: Agr ees with plan of care IV INSERTION Catheter brand: ____ Saf-T-Intim a Catherter Gauge: ,24 ga Needle Length: ____,3/4 inch IV site accessed: ____ RAC Number of attempts to access vein/port: 1 Premedication: n/a Time given: ___ n/a PATIENT MONITORING Time infusion initated: ___ 1 440 Rate of infusion: ___ 200cc/hour Infusion end time:: 1510 DISPOSITION Time IV discontinued:: ___ 1512 Amount of drug administered: ____ 225mg Next Infusion Date Scheduled:: 5
--- OUTSIDE RECORDS SUMMARY | 2024-06-03 16:29 | XMS_ITS ---
Author Organization [facility] wilner Address [address] [place] [address] Care Team Providers Care Knife Setter Grinder Machine Name Role Phone Nanda Cuevas Primary Care Provider Dave MedranoAdriana Unavailable [phone] Allergies Allergen (clinical drug ingredient) Drug/Non Drug Allergy documented on EMR Reaction Allergy Type Onset Date Status sulfamethoxazole / trimethoprim Bactrim Unknown Drug Allergy 08/25/2017 Active Ceftin Unknown Drug Allergy 02/17/2022 Active Keflex Unknown Drug Allergy 02/17/2022 Active REASON FOR VISIT RA Medications Medication SIG (Take, Route, Frequency, Duration) Notes Start Date End Date Status Dupixent Pen 300 mg/2 mL inject 2 milliliters (300 mg) by subcutaneous route every 2 weeks in the abdomen, thigh, or upper arm rotating injection sites subcutaneous [id number]- [id number] *Reorder from Bridge for eRx and Interaction Alerts* Active FLUoxetine HCl 20 MG take 1 tablet (20 mg) by oral route once daily Oral 1 Active traZODone HCl 50 MG prn Oral Active Lo Loestrin Fe 1 MG-10 MCG / 10 MCG Oral for 28 Days Active Atenolol 25 MG TAKE 1/2 TABLET BY MOUTH DAILY Oral for 30 Days Active Tylenol 8 Hour 650 MG Oral Active Hydroxychloroquine Sulfate 200 MG 1 Oral twice a day for 90 days Active Vital Signs Temperature 98.0 degrees Fahrenheit 02/23/20 24 Blood pressure systolic 116 mm Hg 02/23/20 24 Blood pressure diastolic 62 mm Hg 024 Heart Rate 87 /min 02/23/2024 Height 68 in 02/23/2024 Weight 255.6 lbs 02/23/2024 BMI 38.86 kg/m2 02/23/2024 Oximetry 94 % 02/23/2024 Height-cm 172.72 cm 02/23/2024 Weight-kg 115.92 kg 02/23/2024 Encounters Encounter Location Date Provider Diagnosis [facility] [address] [place] [address] 02/23/2024 Adriana Medrano Rheumatoid arthritis without rheumatoid factor, multiple sites M06.09 ; Lumbar back pain M54.50 and High risk medication use Z79.899 Assessments Encounter Date Diagnosis (ICD Code) Assessment Notes Treatment Notes Treatment Clinical Notes Section Notes 02/23/2024 Rheumatoid arthritis without rheumatoid factor, multiple sites (ICD-10 - M06.09) arthritis stable, simponi aria and plaquenil helping, will continue both, advised about eye exam 02/23/2024 Lumbar back pain (ICD-10 - M54.50) arthritis stable, simponi aria and plaquenil helping, will continue both, advised about eye exam 02/23/2024 High risk medication use (ICD-10 - Z79.899) arthritis stable, simponi aria and plaquenil helping, will continue both, advised about eye exam Plan Of Treatment Medication Medication Name Sig Start Date Stop Date Notes Hydroxychloroquine Sulfate 200 MG 1 Oral twice a day for 90 days Next Appt Details Follow Up: 2 Months, Reason: Provider Name:Adriana Du, 06/06 08:30:00 AM, [address], [address], [place], [address], Progress Notes * Yumiko STOUT EDOB:[birth year] (48 yo F)Acc No.[id number]:02/23/2024 Progress Notes Patient: Yumiko BASILIO Provider: Jillian MEDRANO MD :1975 A ge:48 Y S ex:Female Date:02/23/2024 Address:[address] [place] [address] Pcp:RIANNA Chowdary Subjective: * Chief Complaints: * R A * HPI: G eneral Follow up: beging evaluated for POTS, on beta-denzel, helping, to have ECHO and heart monitor RA: on simponi aria and HCQ, meds helping, joint s ar efine, low back aching, sees chiropractor, am stiffness: 45 minutes back pain: off gabapentin, had PT before, sees chiropractor MTX caused hair loss and elevated liver enzymes, stopped arava due to diarrhea, humira stopped working eye exam: 12/2022. * ROS: G eneral / Constitutional: Patient denies f iván, chills. P atient complains of?fatigue. M usculoskeletal: Patient complains of s ee HPI. S kin: Patient denies r melisa. * Medical History: * Surgical History: Flor toledo, Date of Procedure: Jan 04, 2021; 2021-01-26 * Hospitalization/Major Diagno stic Procedure: * Social History: M igrated Social History: M igrated Social History: :: No Children , Exercise :: None Lately :: note : 01/26/2021 - none lately, was walking, Marital Status :: Single :: note : - [facility] 11/22/2017 , Occupation :: employed :: note : - [employer] 11/22/2017 , Substance Use :: Alcohol-Does not give any significant history , Substance Use :: Tobacco :: Never. * Medications: T akingTylenol 8 Hour 650 MG Tablet Extended Release Oral traZODone HCl 50 MG Tablet prn Oral Dupixent Pen 300 mg/2 mL pen injector inject 2 milliliters (300 mg) by subcutaneous route every 2 weeks in the abdomen, thigh, or upper arm rotating injection sites subcutaneous [id number] , Notes to Pharmacist: *Reorder from Bridge for eRx and Interaction Alerts*FLUoxetine HCl 20 MG Tablet take 1 tablet (20 mg) by oral route once daily Oral 1 Hydroxychloroquine Sulfate 200 MG Tablet 1 Oral twice a day , stop date 4Atenolol 25 MG Tablet TAKE 1/2 TABLET BY MOUTH DAILY Oral Lo Loestrin Fe 1 MG-10 MCG / 10 MCG Tablet Oral Taking Tylenol 8 Hour 650 MG Tablet Extended Release Oral Taking traZODone HCl 50 MG Tablet prn Oral Taking Dupixent Pen 300 mg/2 mL pen injector inject 2 milliliters (300 mg) by subcutaneous route every 2 weeks in the abdomen, thigh, or upper arm rotating injection sites subcutaneous [id number]-[id number] , Notes to Pharmacist: *Reorder from [facility] for eRx and Interaction Alerts*Taking FLUoxetine HCl 20 MG Tablet take 1 tablet (20 mg) by oral route once daily Oral 1 Taking Hydroxychloroquine Sulfate 200 MG Tablet 1 Oral twice a day , stop date 04/07/2024Taking Atenolol 25 MG Tablet TAKE 1/2 TABLET BY MOUTH DAILY Oral Taking Lo Loestrin Fe 1 MG-10 MCG / 10 MCG Tablet Oral DiscontinuedmethylPREDNISolone 4 MG Tablet Therapy Pack FOLLOW PACKAGE DIRECTIONS Medication List reviewed and reconciled with the patientDiscontinued methylPREDNISolone 4 MG Tablet Therapy Pack FOLLOW PACKAGE DIRECTIONS Medication List reviewed and reconciled with the patient * Allergies: K eflex: Allergy - Onset Date 02/17/2022actrim: Allergy - Onset Date 08/25/2017Ceftin: Allergy - Onset Date 02/17/2022no[Allergies Verified] Objective: * Vitals: B P:116/62mm Hg, HR:87/min, Temp:98.0F, Oxygen sat %:94%, Wt:255.6lbs, Wt- k.92kg, Ht:68in, Ht-cm:172.72cm, BMI:38.86Index, Body Surface Area:2.36. * Examination: G eneral Examination: General appearance: a lert, well-nourished and in no acute distress. Head: n ormocephalic, atraumatic. Eyes: n ormal. Skin: n o rash. Lungs: r espiratory effort normal. N eurology: Speech: n ormal. P sychiatry: Affect / mood: a ppropriate. R heumatology: n o synovitis. Assessment: * Assessment: 1. R heumatoid arthritis without rheumatoid factor, multiple sites - M06.09 (Primary) ? 2 . L umbar back pain - M54.50 3 . H igh risk medication use - Z79.899 arthritis stable, simponi ar ia and plaquenil helping, will continue both, advised about eye exam Plan: * Treatment: * Procedure Codes: * Follow Up: 2 Months * Billing Information: * Visit Code: 80011 Office Visit, Est Pt., Level 4. * Procedure Codes: * Sign off status: Completed true * Provider: Jillian MEDRANO MD Date: 04/24/2023 Generated for Printi ng/Faxing/eTransmitting on: 0 06/03/2024 04:29 PM ACCOUNTING INTERN History and Physical Notes * HPI (History of Present Illness) Category Sub-Category Detail Notes Category Not es General Follow up beging evaluated for POTS, on beta-denzel, helping, to have ECHO and heart monitor RA: on simponi aria and HCQ, meds helping, joint s ar efine, low back aching, sees chiropractor, am stiffness: 45 minutes back pain: off gabapentin, had PT before, sees chiropractor MTX caused hair loss and elevated liver enzymes, stopped arava due to diarrhea, humira stopped working eye exam: 12/2022 Examination Category Sub-Category Detail Notes Category Not es Rheumatology no synovitis Neurology Speech: normal Psychiatry Affect / mood: appropriate General Examination General appearance: alert, w ell-nourished and in no acute distress Head: normocephalic, atrau matic Eyes: normal Lungs: respiratory effort n ormal Skin: no rash
--- OUTSIDE RECORDS SUMMARY | 2024-06-03 16:29 | XMS_ITS | Encounter Summary ---
Author Organization [facility] Address 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
--- OUTSIDE RECORDS SUMMARY | 2024-06-03 16:29 | XMS_ITS | Encounter Summary ---
Author Organization [facility] Address [address] [place] [address] Care Team Providers Care Discharge Planner Name Role Phone Esvin Loera MD Primary Care Provider [phone] Encounter Details Date Type Department Care Team (Late st Contact Info) Description 07/09/2007 Outpatient Historical [facility] [address] [place] [address] Suzie Jacobsen MD [address] [facility] [place] [address] Social History Tobacco Use Types Packs/Day Years Used Date Smoking Tobacco: Never Assessed Comments Unknown Sex and Gender Information Value Date Recorded Sex Assigned at Not on file Legal Sex Female 5:27 AM MOTOR EQUIPMENT COMMANDING OFFICER Gender Identity Not on file Sexual Orientation Not on file documented as of this encounter Plan of Treatment Not on file documented as of this encounter Visit Diagnoses Not on filedocumented in this encounter Care Teams Discharge Planner Relationship Specialty Start Date End Date Esvin Loera MD PCP - General 03/07/08 documented as of this encounter
--- OUTSIDE RECORDS SUMMARY | 2024-06-03 16:29 | XMS_ITS | Encounter Summary ---
Author Organization [facility] Address [address] [place] [address] Phone Care Team Providers Care Ore Charger Name Role Phone Shayy Church MD Primary Care Provider [phone] Yumiko Perera MD Unavailable [phone] Nanda Ch Primary Care Provider + Lilly Genao APRN, ETHYLBENZENE CONVERTER OPERATOR Unavailable Jayro Reynolds MD Unavailable Reason for Visit * Reason Comments Medication Refill Encounter Details Date Type Department Care Team (Late st Contact Info) Description 03/12/2023 Refill [facility] - Gastroenter[facility] [address] [place] [address] Lilly Genao APRN, ETHYLBENZENE CONVERTER OPERATOR [address] [place], [place] [id number] Medication Refill Social History Tobacco Use Types Packs/Day Years [...] Recorded Total Score - Questions 1-9 0 02/23 Education Answer Date Recorded What is the highest level of school you have completed or the highest degree you have received? 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 Question Answer Date of Assessment Author Patient Health Questionnaire -2 Score 0 03/13/2023 9:15 AM Darshana Cantor MA documented as of this encounter Miscellaneous Notes * Telephone Encounter - Lory Coffey RN - 03/13/2023 8:48 AM DIVEMASTER Medication refilled and signed per [facility] chronic medication standing order for pediatric and adult patients. MASTER documented in this encounter Plan of Treatment Upcoming Encounters Date Type Department Care Team (Late st Contact Info) Description 06/11/2024 7:00 AM DIVEMASTER [facility] [address] [place] [address] Nanda Ch, PAC [address] [place] [address] 10/04/2024 3:00 PM CDT Office Visit [facility] - [facility] [address] [place] [address] Nanda Ch, [facility] [address] [place] [address] documented as of this encounter Goals Goal Patient Goal Type Associated Problems Recent Progress Patient-Stated? Author Patient to have decrease in the frequency and intensity of anxious symptoms over next 10 sessions Behavioral Health On track(2020 11:26 AM DIVEMASTER) Roro Holman, COTTON SAMPLER Note: to have reduction of anxiety symptoms. Goal Reviewed with: patient Readiness to change: Thinking about making a change Department associated with goal: [facility] Steps to [...] with anxiety. documented as of this encounter Visit Diagnoses Not on filedocumented in this encounter Additional Health Concerns Infection Onset Date Last Indicated Resolved Time COVID - 19 05/28/2023 05/28/2023 06/07/2023 12:1 6 AM DIVEMASTER Respiratory Rule-Out 05/28/2023 05/28/2023 024 2:29 PM DIVEMASTER Assessment Noted Time PHQ-9 Depression Total Score: 0 05/09/19 23 11:00 AM DIVEMASTER documented as of this encounter Care Teams Ore Charger Relationship Specialty Start Date End Date Shayy Church MD [address] [place] [address] PCP - General Family Medicine 06/15/17 04/09/23 Nanda Ch [facility] [address] [place] [address] PCP - General Physician Pile Driving Nozzleman 04/10/23 Yumiko Perera MD [address] [place] [address] Consulting Physician Obstetrics & Gynecology 11/29/17 Lilly Genao APRN, ETHYLBENZENE CONVERTER OPERATOR [address] [place] [address] Nurse Practitioner Advanced Practice Nurse 11/24/22 Jayro Reynolds MD [address] [facility] [address] [address] Consulting Physician Clinical Cardiac Electrophysiology 05/17/24 documented as of this encounter
--- OUTSIDE RECORDS SUMMARY | 2024-06-03 16:29 | XMS_ITS | Patient Health Record ---
Author Organization [facility] Address [address] [place] [address] [address] [address] Care Team Providers Care Card Doffer Name Role Phone Nanda Cuevas Primary Care Provider Dave barroso Adriana Castaneda Unavailable [phone] Allergies Allergen (clinical drug ingredient) Drug/Non Drug Allergy documented on EMR Reaction Allergy Type Onset Date Status sulfamethoxazole / trimethoprim Bactrim Unknown Drug Allergy 08/25/2017 Active Ceftin Unknown Drug Allergy 02/17/2022 Active Keflex Unknown Drug Allergy 02/17/2022 Active Results Component Value Reference Range Notes CBC w auto diff Reviewed date:02/08/2024 07:42:07 AM Interpretation: Performing Lab:[facility] , [facility]. [facility] [address] Notes/Report: WBC 8.3 3.8-9.9 K/cumm Hgb 13.9 11.9-15.5 g/dL Hct 43.2 35.6-45.5 % Platelet Ct 310 150-400 K/cumm MPV 10.3 9.1-12.3 fL RBC 4.48 3.90-5.20 M/cumm MCV 96.4 81.3-96.4 fL MCH 31.0 27.1-33.3 pg MCHC 32.2 32.3-35.7 g/dL RDW CV 12.5 11.1-14.9 % RDW SD 45.0 35.7-48.1 fL NRBC Abs Auto 0.00 0.00-0.01 K/cumm Comprehensive metabolic pane l (CMP) Reviewed date:02/08/2024 07:42:07 AM Interpretation: Performing Lab:[facility] , [address] [facility]. [place] [address] Notes/Report: Sodium 141 135-145 mmol/L Plasma Potassium 3.7 3.3-4.9 mmol/L Chloride 103 97-110 mmol/L Total CO2 23 22-32 mmol/L Anion Gap 15 2-15 mmol/L BUN 7 6-25 mg/dL Creatinine 0.82 0.60-1.10 mg/dL Glucose 81 70-199 mg/dL Interpretive Data Fasting glucose >/= 126 mg/dl is diagnostic for diabetes. Fasting is defined as no caloric intake for at least 8 hours. Fasting glucose between 100 mg/dl to 125 mg/dl is diagnostic of prediabetes. In a patient with classic symptoms of hyperglycemia or hyperglycemic crisis, a random glucose >/= 200 mg/dl is diagnostic for diabetes. In the absence of unequivocal hyperglycemia, results should be confirmed by repeat testing. The classification and Diagnosis of Diabetes Diabetes Care 2021; 46: S19-S40. Current interpretive data was last revised 2022. Total Calcium 9.5 8.5-10.3 mg/dL Total Bilirubin 0.5 0.1-1.2 mg/dL Plasma Total Protein 7.0 6.5-8.5 g/dL Albumin 4.1 3.5-5.0 g/dL Alkaline Phosphatase 125 40-130 Units/L ALT 31 7-45 Units/L AST 34 10-45 Units/L eGFR Reviewed date:02/08/2024 07:42:07 AM Interpretation: Performing Lab:[facility] , [address] [facility]. [place] [address] Notes/Report: eGFR 89 >=60 mL/min/1.73 m2 Interpretive Data Reference Interval Normal >/= 90 mL/min/1.73m2 Mildly decreased* 60 - 89 mL/min/1.73m2 Mildly to moderately decreased 45 - 59 mL/min/1.73m2 Moderately to severely decreased 30 - 44 mL/min/1.73m2 Severely decreased 15 - 29 mL/min/1.73m2 Kidney Failure < 15 mL/min/1.73m2 *Relative to young adult level Estimated glomerular filtration rate is determined by the 2020 CKD-EPI equation recommended by the National Kidney Foundation (A Unifying Approach to GFR Estimation: Recommendations of the NKF-ASK Task Force on Reassessing the Inclusion of Race in Diagnosing Kidney Disease, JASN 2020). The CKD-EPI equation should not be used for patients with unstable renal function and has not been validated in children and those over 70. Current interpretive data was last reviewed 2021. Differential Automated Reviewed date:02/08/2024 07:42:07 AM Interpretation: Performing Lab:[facility] , [facility]. [facility] [address] Notes/Report: Neut Abs 5.9 1.5-6.5 K/cumm ImmGran Abs 0.0 0.0-0.1 K/cumm Lymphocyte Abs 1.4 0.8-3.3 K/cumm Putnam Abs 0.7 0.2-0.8 K/cumm Eos Abs 0.2 0.0-0.5 K/cumm Baso Abs 0.1 0.0-0.1 K/cumm Neut Pct 70.9 Interpretive Data Percent cell count reference ranges are not reported, since discordance with absolute values may lead to misinterpretation of CBC data. Current Interpretive Data was last revised on 2017. ImmGran Pct 0.4 Interpretive Data Percent cell count reference ranges are not reported, since discordance with absolute values may lead to misinterpretation of CBC data. Current Interpretive Data was last revised on 2017. Lymph Pct 17.1 Interpretive Data Percent cell count reference ranges are not reported, since discordance with absolute values may lead to misinterpretation of CBC data. Current Interpretive Data was last revised on 2017. Putnam Pct 8.6 Interpretive Data Percent cell count reference ranges are not reported, since discordance with absolute values may lead to misinterpretation of CBC data. Current Interpretive Data was last revised on 2017. Eos Pct 1.9 Interpretive Data Percent cell count reference ranges are not reported, since discordance with absolute values may lead to misinterpretation of CBC data. Current Interpretive Data was last revised on 2017. Baso Pct 1.1 Interpretive Data Percent cell count reference ranges are not reported, since discordance with absolute values may lead to misinterpretation of CBC data. Current Interpretive Data was last revised on 2017. Reason For Referral Reason Kayden gonzalez PA Diagnosis 1 Rheumatoid arthritis without rheumatoid factor, multiple sites (M06.09) Referral Organization [facility] robert Referring Provider First Name Adriana Referring Provider Last Name Leonel Referring Provider Speciality Rheumatolo gy Referred Organization [facility] robert Referred Provider Adriana Castaneda Referred Address [address],[place], [place],[address],[place] Referred Provider Specialty Rheumatology Procedure 1 INJECTION GOLIMUMAB 1 MG FOR IV USE (J1602) Referral Priority Routine Reason Kayden Gonzalez Cigna Diagnosis 1 Rheumatoid arthritis without rheumatoid factor, multiple sites (M06.09) Referring Provider First Name Adriana Referring Provider Last Name Leonel Referring Provider Speciality Rheumatolo gy Referred Organization [facility] robert Referred Provider Leonel Adriana Referred Address [address],[place], [place],[address],[place] Referred Provider Specialty Rheumatology Procedure 1 INJECTION GOLIMUMAB 1 MG FOR IV USE (J1602) Referral Priority Routine Medications Medication SIG (Take, Route, Frequency, Duration) Notes Start Date End Date Status traZODone HCl 50 MG prn Oral Active Tylenol 8 Hour 650 MG Oral Active FLUoxetine HCl 20 MG take 1 tablet (20 mg) by oral route once daily Oral 1 Active Dupixent Pen 300 mg/2 mL inject 2 milliliters (300 mg) by subcutaneous route every 2 weeks in the abdomen, thigh, or upper arm rotating injection sites subcutaneous [id number]- 02 *Reorder from KIT digital for eRx and Interaction Alerts* Active Hydroxychloroquine Sulfate 200 MG 1 Oral twice a day for 90 days Active Atenolol 25 MG TAKE 1/2 TABLET BY MOUTH DAILY Oral for 30 Days Active Lo Loestrin Fe 1 MG-10 MCG / 10 MCG Oral for 28 Days Active Problems Problem Type SNOMED Code ICD Code Onset Dates Problem Status W/U Status Risk Notes Problem Rheumatoid arthritis (75351813) Rheumatoid arthritis without rheumatoid factor, unspecified site (M06.00) Active confirmed Problem 228852017 Rheumatoid arthritis without rheumatoid factor, multiple sites (M06.09) Active confirmed Vital Signs Heart Rate 111 /min 04/03/2024 Temperature 97.8 degrees Fahrenheit 04/03/2024 Oximetry 94 % 02/23/2024 Height-cm 172.72 cm 04/03/2024 Blood pressure diastolic 87 mm Hg 04/03/2024 Weight-kg 112.49 kg 04/03/2024 Height 68 in 04/03/2024 Blood pressure systolic 139 mm Hg 04/03/2024 Weight 248 lbs 04/03/2024 BMI 37.7 kg/m2 04/03/2024 Encounters Encounter Location Date Provider Diagnosis [facility] [address] [place] [address] 06/21/2023 Adriana Du Polyarthritis with negative rheumatoid factor M06.09 and Rheumatoid arthritis without rheumatoid factor, unspecified site M06.[address] [facility] [address] [place] [address] 06/21/2023 Adriana Du Rheumatoid arthritis without rheumatoid factor, multiple sites M06.09 ; Lumbar back pain M54.50 and High risk medication use Z79.8[address] [facility] [address] [place] [address] 08/16/2023 Adriana Du Rheumatoid arthritis of multiple sites with negative rheumatoid factor M06.[address] [facility] [address] [place] [address] 10/11/2023 Adriana Du Rheumatoid arthritis of multiple sites with negative rheumatoid factor M06.[address] [facility] [address] [place] [address] 10/11/2023 Adriana Du Rheumatoid arthritis without rheumatoid factor, multiple sites M06.09 ; Lumbar back pain M54.50 and High risk medication use Z79.8[address] [facility] [address] [place] [address] 12/13/2023 Adriana Du Rheumatoid arthritis without rheumatoid factor, multiple sites M06.[address] [facility] [address] [place] [address] 02/07/2024 Adriana Du Rheumatoid arthritis without rheumatoid factor, multiple sites M06.[address] [facility] [address] [place] [address] 02/23/2024 Adriana Du Rheumatoid arthritis without rheumatoid factor, multiple sites M06.09 ; Lumbar back pain M54.50 and High risk medication use Z79.8[address] [facility] [address] [place] [address] 04/03/2024 Adriana Castaneda Rheumatoid arthritis without rheumatoid factor, multiple sites M06.[address] [facility] [address] [place] [address] [facility] [address] [place] [address] 10/02/2023 [facility] [address] [place] [address] 10/24[facility] [address] [place] [address] 11/09/2023 [facility] [address] [place] [address] 01/29/2024 Adriana Castaneda Assessments Encounter Date Diagnosis (ICD Code) Assessment Notes Treatment Notes Treatment Clinical Notes Section Notes 06/21/2023 Polyarthritis with negative rheumatoid factor (ICD-10 - M06.09) 06/21/2023 Rheumatoid arthritis without rheumatoid factor, multiple sites (ICD-10 - M06.09) simponi aria helping, will continue, also continue plaquenil, eye exam up to date, try ibuprofen or aleve prn for flares 06/21/2023 Lumbar back pain (ICD-10 - M54.50) simponi aria helping, will continue, also continue plaquenil, eye exam up to date, try ibuprofen or aleve prn for flares 08/16/2023 Rheumatoid arthritis of multiple sites with negative rheumatoid factor (ICD-10 - M06.09) 10/11/2023 Rheumatoid arthritis of multiple sites with negative rheumatoid factor (ICD-10 - M06.09) 10/11/2023 Rheumatoid arthritis without rheumatoid factor, multiple sites (ICD-10 - M06.09) simponi aria and plaquenil helping, will continue both, advised to try thumb splinting, continue to follow up with ortho for knee pain 12/13/2023 Rheumatoid arthritis without rheumatoid factor, multiple sites (ICD-10 - M06.09) 02/07/2024 Rheumatoid arthritis without rheumatoid factor, multiple sites (ICD-10 - M06.09) 02/23/2024 Rheumatoid arthritis without rheumatoid factor, multiple sites (ICD-10 - M06.09) arthritis stable, simponi aria and plaquenil helping, will continue both, advised about eye exam 04/03/2024 Rheumatoid arthritis without rheumatoid factor, multiple sites (ICD-10 - M06.09) 10/11/2023 Lumbar back pain (ICD-10 - M54.50) simponi aria and plaquenil helping, will continue both, advised to try thumb splinting, continue to follow up with ortho for knee pain 02/23/2024 Lumbar back pain (ICD-10 - M54.50) arthritis stable, simponi aria and plaquenil helping, will continue both, advised about eye exam 06/21/2023 High risk medication use (ICD-10 - Z79.899) simponi aria helping, will continue, also continue plaquenil, eye exam up to date, try ibuprofen or aleve prn for flares 06/21/2023 Rheumatoid arthritis without rheumatoid factor, unspecified site (ICD-10 - M06.00) 10/11/2023 High risk medication use (ICD-10 - Z79.899) simponi aria and plaquenil helping, will continue both, advised to try thumb splinting, continue to follow up with ortho for knee pain 02/23/2024 High risk medication use (ICD-10 - Z79.899) arthritis stable, simponi aria and plaquenil helping, will continue both, advised about eye exam Plan Of Treatment Pending Test Test Name Order Date CBC With Differential/Platelet CMP - Comp. Metabolic Panel (14) 024 Quantiferon Gold 08/16/2023 Next Appt Details Provider Name:Adriana Leonel, 06/06 08:30:00 AM, [address] [facility] [address], [place], [address], Insurance Providers Payer Name Payer Address Payer Phone Subscriber Number Group Number Insured Name Patient Relationship to Insured Coverage Start Date Coverage End Date Cigna Open Access Plus - [place] [facility] [address] GRACE Sheriff [id number] [phone] [id number] Yumiko Stout Self - patient is the insured [employer] [address] [place] [address] [id number] Argelia Yumiko Self - patient is the insured Cigna [address] RIANNA Felix [id number] ArgeliaYumiko Self - patient is the insured BCBS [facility] [address] [place] [address] [phone] [id number] Tahir Stoute Self - patient is the insured Cigna Ppo [address] GRACE Sheriff [address] [id number] ArgeliaTahire Self - patient is the insured Aetna - Choice/O A [address] [place] [address] [id number] StoutTahir fue Self - patient is the insured Medical (General) History Medical History History ICD Code Back Pain; Rheumatoid arthritis; Surgical History Surgery Date(Month/Year) Hernia, Date of Procedure: Jan 04, 2021 ; 2021-01-26
--- OUTSIDE RECORDS SUMMARY | 2024-06-03 16:29 | XMS_ITS | Continuity of Care Document ---
Author Organization [facility] Address [address] [place] [address] Phone Care Team Providers Care Home Health Care Social Worker Name Role Phone Goldie OD, Tova Unavailable Unavailable Allergies, Adverse Reactions, Alerts Substance Reaction Status Criticality No Known Allergies Active No Inform ation Medications Medication Instructions Dosage Effective Dates (start - stop) Status Comments hydroxychloroquine 200 mg tablet take 1 tablet by oral route 2 times every day 200 MG - Active Procedures Procedure Date SCODI, GDX Retina SCODI, GDX Posterior Segment Advance Directives Directive Yes / No Effective Date File Name No Information Encounters Encounter Description Practice Location Reason(s) For Visit Diagnoses Date Provider Providers Copied on Encounter [facility], [address] [place] [address] [address], [place], [place], [address], tel:[phone] SEC Shaji OR Professional Testing only (chief complaint) No Information Goldie OD Tova. [address] [place] [address] [address], [address], [place], [place], [address], [place]. tel:[phone] Referring Provider: Jayshree Hooper OD, [address] [facility], [place], [address]. tel:[phone] [facility], [address] [place] [address] [address], [place], [place], [address], tel:[phone] SEC Shaji [place] Professional OCT ON only (chief complaint) No Information Ira Toney. [address], [address], [place], [place], [address], [place]. tel:[phone] Referring Provider: Jayshree Hooper OD, [address] [place], [address]. tel:[phone] Family History Family Member Type Diagnosis Age At Onset No Information Payers Payer name Insurance type Covered constitution party ID Shelley ray(khanh) Urvashi [id number] Social History Type Description Quantity Date Captured Comments Alcohol Use Details No Caffeine Use Details Tobacco Use Status Current non-smoker Smoking Status Never smoker Non-Smoking Tobacco Use Details : No Details Available : No Details Available Sex Female Chief Complaint And Reason For Visit From encounter dated 01/06/2023 11:00'. Testing only (chief complaint). Description: The 47 year old patient presents for a MAC OCT only. Reason For Referral Reason For Referral No Information History Of Present Illness Encounter Date Complaint History Of Prese nt Illness Testing only The 47 year old patient presents for a MAC OCT only. OCT ON only The 46 year old patient presents for evaluation of OCT ON only in the right eye and left eye. Functional Status Date Functional Assessmen t No Information Instructions Date Instruction Additional Infor mation No Information Assessments Type Assessment Date No Information Patient Care Teams Name Effective Dates (start - stop) Status Members No Information
--- OUTSIDE RECORDS SUMMARY | 2024-06-03 16:29 | XMS_ITS | Encounter Summary ---
Author Organization [facility] Address [address] [place] [address] Phone Care Team Providers Care Paraffiner Name Role Phone Shayy Church MD Primary Care Provider [phone] Yumiko Perera MD Unavailable [phone] Nanda Ch Primary Care Provider + Lilly Genao APRN, ANALOG DESIGN ENGINEER Unavailable Jayro Reynolds MD Unavailable Reason for Visit * Reason Comments Medication Refill Encounter Details Date Type Department Care Team (Late st Contact Info) Description 01/07/2022 Refill [facility] - Family Medicine [facility] [address] [place] [address] Shayy Church MD [address] [place] [address] Medication Refill Social History Tobacco Use Types [...] Master's degree (e.g., MA, MS, Sly, MEd, FELLING BUCKING SUPERVISOR, DIANA) 12/11/2019 Sexually Active Control Partners Comments [...] suspected to have Coronavirus/COVID-19? No / Unsure 01/10/2022 11:59 AM CDT documented as of this encounter Miscellaneous Notes * Telephone Encounter - Ivone Bains RN - 01/10/2022 9:23 AM CDT Name from pharmacy: KETOROLAC 10MG TABLETS Will file in chart as: ketorolac (TORADOL) 10 MG Tablet The original prescription was discontinued on 11/02/2021 by Shayy Church MD for the followingreason: Therapy completed. documented in this encounter Plan of Treatment Upcoming Encounters Date Type Department Care Team (Late st Contact Info) Description 06/11/2024 7:00 AM NETWORK CONTRACTOR Appointment [facility] [address] [place] [address] Nanda Ch, PAC [address] [place] [address] 10/04/2024 3:00 PM CDT Office Visit [facility] - [facility] - [facility] [address] [place] [address] Nanda Ch PAC [address] [place] [address] documented as of this encounter Goals Goal Patient Goal Type Associated Problems Recent Progress Patient-Stated? Author Patient to have decrease in the frequency and intensity of anxious symptoms over next 10 sessions Behavioral Health On track(2020 11:26 AM NETWORK CONTRACTOR) No Roro Monae, PRODUCTION BROACHER Note: to have reduction of anxiety symptoms. Goal Reviewed with: patient Readiness to change: Thinking about making a change Department associated with goal: [facility] Steps to achieve [...] as of this encounter Visit Diagnoses Diagnosis Migraine with aura and without status migrainosus, not intractable Migraine with aura, without mention of intractable migraine without mention of status migrainosus Visit for screening mammogram Other screening mammogram documented in this encounter Additional Health Concerns Infection Onset Date Last Indicated Resolved Time COVID - 19 05/28/2023 05/28/2023 06/07/2023 12:1 6 AM NETWORK CONTRACTOR Respiratory Rule-Out 05/28/2023 05/28/2023 024 2:29 PM NETWORK CONTRACTOR Assessment Noted Time PHQ-9 Depression Total Score: 0 05/25/19 22 12:37 PM NETWORK CONTRACTOR documented as of this encounter Care Teams Paraffiner Relationship Specialty Start Date End Date Shayy Church MD [address] [place] [address] PCP - General Family Medicine 06/15/17 04/09/23 Nanda Ch PAC [address] [place] [address] PCP - General Physician [place] Hardware Installer 04/10/23 Yumiko Perera MD [address] [place] [address] Consulting Physician Obstetrics & Gynecology 11/29/17 Lilly Genao APRN, ANALOG DESIGN ENGINEER [address] [place] [address] Nurse Practitioner Advanced Practice Nurse 11/24/22 [facility]ro Reynolds MD [address] [facility] [address] [address] Consulting Physician Clinical Cardiac Electrophysiology 05/17/24 documented as of this encounter
--- OUTSIDE RECORDS SUMMARY | 2024-06-03 16:29 | XMS_ITS | Encounter Summary ---
Author Organization [facility] Address [address] [place] [address] Care Team Providers Care Standard Machine Stitcher Name Role Phone Corin Fairchild MD Primary Care Provider [phone] Encounter Details Date Type Department Care Team (Latest Contact Info) Description 06/12/2008 Outpatient Historical [facility] Corin Fairchild MD [address] [place] [address] Mgrn Wo Aura Wo Intrc Mgr Social History Tobacco Use Types Packs/Day Years Used Date Smoking Tobacco: Never Alcohol Use Standard Drinks/Week Comments Yes 0 (1 standard drink = 0.6 oz pur e alcohol) Comments No Sex and Gender Information Value Date Recorded Sex Assigned at Not on file 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 Gender Identity Not on file Sexual Orientation Not on file documented as of this encounter Plan of Treatment Not on file documented as of this encounter Procedures Procedure Name Priority Date/Time Associated Diagnosis Comments CT HEAD WO CONTRAST Timed Study 06/12/2008 3:26 PM BARREL BURNER documented in this encounter Results * CT HEAD WO CONTRAST (06/12/2008 3:26 PM BARREL BURNER) Anatomical Region Laterality Modality Head Other 06/12/2008 3:26 PM BARREL BURNER Narrative 06/12/2008 5:04 PM BARREL BURNER [facility] [address] [place], [place] [address] Admit Date: 06/12/2008 CHEPE STOUT Sex: F Admit Prov: CORIN FAIRCHILD Date: 1975 Primary Care Prov: CORIN FAIRCHILD CMRN: [id number] [id number] Ordering Prov: N/A Accession Number: [id number] Interpretation CT Head without contrast Jun 12, 2008 3:33:51 PM Clinical History: Headache Scan Technique: Computed tomography was performed at the standard reference planes with 5mm thickness without intravenous contrast material. Findings: The ventricles, CSF spaces, and brain parenchyma are normal. There is no mass, hemorrhage, infarct, extracerebral collection, or midline shift. No focal areas of abnormal attenuation are present. There is no bony lesion or paranasal sinus abnormality. Opinion: Normal noncontrast CT scan of the brain. . Dictated by: ROBYN LEGER 06/12/2008 17:02 Electronically signed by: ROBYN LEGER 06/12/2008 17:03 Procedure Note Robyn Leger - 06/12/2008 [id number] [place], [place] [address] Admit Date: 06/12/2008 CHEPE STOUT Sex: F Admit Prov: CORIN FAIRCHILD Date: 1975 Primary Care Prov: CORIN FAIRCHILD CMRN: [id number] [id number] IM[facility] SERVICES Ordering Prov: N/A Interpretation CT Head without contrast Jun 12, 2008 3:33:51 PM Clinical History: Headache Scan Technique: Computed tomography was performed at the standardreference planes with 5mm thickness without intravenous contrast material. Findings: The ventricles, CSF spaces, and brain parenchyma arenormal. There is no mass, hemorrhage, infarct, extracerebral collection, ormidline shift. No focal areas of abnormal attenuation are present. There isno bony lesion or paranasal sinus abnormality. Opinion: Normal noncontrast CT scan of the brain. . Dictated by: ROBYN LEGER 06/12/2008 17:02 Electronically signed by: ROBYN LEGER 06/12/2008 17:03 us Corin Faicrhild MD CT ORDERABLES Final Result documented in this encounter Visit Diagnoses Diagnosis Migraine without aura, without mention of intractable migraine without mention of status migrainosus documented in this encounter Care Teams Standard Machine Stitcher Relationship Specialty Start Date End Date Corin Fairchild MD PCP - General 03/07/08 documented as of this encounter
--- OUTSIDE RECORDS SUMMARY | 2024-06-03 16:29 | XMS_ITS | Encounter Summary ---
Author Organization [facility] Address [address] [place] [address] Care Team Providers Care Catering Director Name Role Phone Esvin Loera MD Primary Care Provider Encounter Details Date Type Department Care Team (Late st Contact Info) Description 07/09/2007 Orders Only [facility] [address] [place] [address] Suzie Jacobsen MD [address] [facility] [address] Social History Tobacco Use Types Packs/Day Years Used Date Smoking Tobacco: Never Assessed Comments Unknown Sex and Gender Information Value Date Recorded Sex Assigned at Not on file 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 BLOOD PRESSURE: 116/64. Left Arm Sitting TEMPERATURE: 98.8??f. Tympanic ALLERGIES: Allergies are as listed. TOBACCO USE: Patient does not currently use tobacco. CHIEF COMPLAINT Patient complains of cough, chest congestion.est/mercy HISTORY: Pt is here with cough for 5 - 6 weeks. Facial pain, nasal congestion, st. Cough is harsh. No fever, chills or sweats. PHYSICAL EXAMINATION: CONSTITUTIONAL: GENERAL APPEARANCE: Healthy appearing patient in no distress. EARS, NOSE, MOUTH AND THROAT: NOSE (AND SINUS): Right nasal passage is clear with no polyps noted, RIGHT MAXILLARY SINUS IS TENDER. ORAL: ERYTHEMA NOTED ON THE POSTERIOR PHARYNX. RESPIRATORY: Clear to auscultation and percussion. Normal respiratory effort. CARDIOVASCULAR: CARDIAC: Regular rhythm. No murmurs, rubs, or gallops. LYMPHATICS: No lymphadenopathy in the neck. ASSESSMENT/PLAN: 461.9-SINUSITIS UNSPECIFIED ASSESSMENT: The patient's acute sinusitis has not changed. The patient's sinusitis appears to have a bacterial component and warrants antibiotic medication. MEDICATIONS: AZITHROMYCIN ORAL TABLET 250 MG PACKS, 2 tabs po on day one, then 1 po daily for 4 days, 1 Dispensed, 5 Duration/Days Supply, status: NEW PRESCRIPTION, 07/09/2007. RETURN VISIT: Instructed to call if not improving. 07/11/07 12:00 p Electronically signed by Suzie Jacobsen MD. TEACHING PHYSICIAN COMMENTS: I have reviewed the resident's note and I agree with the resident's evaluation and plan. Electronically Signed by: Jh Alegria MD on June documented in this encounter Plan of Treatment Not on file documented as of this encounter Visit Diagnoses Not on filedocumented in this encounter Care Teams Catering Director Relationship Specialty Start Date End Date Esvin Loera MD PCP - General 03/07/08 documented as of this encounter
--- OUTSIDE RECORDS SUMMARY | 2024-06-03 16:29 | XMS_ITS | Encounter Summary ---
Author Organization [facility] Address [address] [place] [address] Care Team Providers Care Coordinator Mining Products Name Role Phone Esvin Loera MD Primary Care Provider [phone] Encounter Details Date Type Department Care Team (Late st Contact Info) Description 07/24/2007 Outpatient Historical [facility] [address] [place] [address] Cassandra Miller, [address] [place] [address] Social History Tobacco Use Types Packs/Day Years Used Date Smoking Tobacco: Never Assessed Comments Unknown Sex and Gender Information Value Date Recorded Sex Assigned at Not on file 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
--- OUTSIDE RECORDS SUMMARY | 2024-06-03 16:29 | XMS_ITS ---
Author Organization [facility] Address [address] [place] [address] [address] [place] [address] Care Team Providers Care Scrap Yard Worker Name Role Phone Nanda Cuevas Primary Care Provider Dave MedranoAdriana Unavailable [phone] Allergies Allergen (clinical drug ingredient) Drug/Non Drug Allergy documented on EMR Reaction Allergy Type Onset Date Status sulfamethoxazole / trimethoprim Bactrim Unknown Drug Allergy 08/25/2017 Active Ceftin Unknown Drug Allergy 02/17/2022 Active Keflex Unknown Drug Allergy 02/17/2022 Active Results Component Value Reference Range Notes CBC w auto diff Reviewed date:02/08/2024 07:42:07 AM Interpretation: Performing Lab:[facility] , [facility]. [facility] [address] Notes/Report: WBC 8.3 3.8-9.9 K/cumm Hgb 13.9 [...] (CMP) Reviewed date:02/08/2024 07:42:07 AM Interpretation: Performing Lab:[facility] [address] Notes/Report: Sodium 141 135-145 mmol/L Plasma Potassium [...] 31 7-45 Units/L AST 34 10-45 Units/L REASON FOR VISIT Infusion Simponi 5 vials Du Medications Medication SIG (Take, Route, Frequency, Duration) Notes Start Date End Date Status Dupixent Pen 300 mg/2 mL inject 2 milliliters (300 mg) by subcutaneous route every 2 weeks in the abdomen, thigh, or upper arm rotating injection sites subcutaneous [id number]- 02 *Reorder from [employer] for eRx and Interaction Alerts* Active control pill - name unknown, take 1 tablet daily - *Reorder from [employer] for eRx and Interaction Alerts* Active methylPREDNISolone 4 MG FOLLOW PACKAGE DIRECTIONS for 6 Active Hydroxychloroquine Sulfate 200 MG 1 Oral twice a day for 90 days 05/16/2022 4 Active FLUoxetine HCl 20 MG take 1 tablet (20 mg) by oral route once daily Oral 1 Active traZODone HCl 50 MG prn Oral Active Tylenol 8 Hour 650 MG Oral Active Vital Signs Temperature 97.9 degrees Fahrenheit 02/07/20 24 Blood pressure systolic 118 mm Hg 02/07/20 24 Blood pressure diastolic 76 mm Hg 024 Heart Rate 101 /min 02/07/2024 Height 68 in 02/07/2024 Weight 262.8 lbs 02/07/2024 BMI 39.95 kg/m2 02/07/2024 Height-cm 172.72 cm 02/07/2024 Weight-kg 119.2 kg 02/07/2024 Encounters Encounter Location Date Provider Diagnosis [facility] [address] [facility] [place] [address] 02/07/2024 Adriana Medrano Rheumatoid arthritis without rheumatoid factor, multiple sites M06.09 Assessments Encounter Date Diagnosis (ICD Code) Assessment Notes Treatment Notes Treatment Clinical Notes Section Notes 02/07/2024 Rheumatoid arthritis without rheumatoid factor, multiple sites (ICD-10 - M06.09) Plan Of Treatment Next Appt Details Provider Name:Adriana Medrano, 06/06 08:30:00 AM, [address], [address], [place], [address], Progress Notes * Yumiko STOUT EDOB:[birth year] (48 yo F)Acc No.[id number]:02/07/2024 Simponi Infusion Patient: Yumiko BASILIO Provider: Jillian MEDRANO MD :1975 A ge:48 Y S ex:Female Date:02/07/2024 Address:[address] [place] [address] Pcp:RIANNA Chowdary Subjective: * Chief Complaints: * I nfusion Simponi 5 vials Du * HPI: I nfusion: Infusion Record T ype of Infusion _ ____,Simponi Aria,?What is the dosage . 250mg, H ow is the dose calculated . weight based/MD order,?Authorized by _ ____,Dr. Medrano, N umber of vials to reconstitute . 5, I nfusion type _ ____,Simponi Aria, A mount . 250mg, M anufacturer _ ___ Mohan, E xpiration date 06/20, L ot number _ __ [id number], S terile water (number of vials)?. NA, S terile water lot number _ __ NA, S terile water exp. date NA, s terile water MFG _ _ NA. P re Infusion Assessment T B Screening Results PPD _ ____,?Quantiferon TB Gold Results N egative 08/16/23, C hest Xray Results _ ____, R ecent exposure to TB _ ____, A ny illness now _ ____,None. S kin Conditon D oes the patient has any skin condition n o. P revious Infusion D ate of last infusion 0 12/13/2023, P revious infusion type _ ____,Simponi Aria, R eaction _ ____, W as patient pre treated _ ____,NO, R esponse to previous infusion Y es Pt states she feels like her infusions are working.. I V INSERTION C atheter brand _ ___, C atherter Gauge _ ____,24 ga, N eedle Length _ ___,3/4 inch, I V site accessed _ ___ Right AC, N umber of attempts to access vein/port . 1, P remedication _ ____ NA, T charly given ___ NA. P ATIENT MONITORING T charly infusion initated _ __ 1505, R ate of infusion?___ 200ml/hr, I nfusion end time: _ ____ 1535. D ISPOSITION T charly IV discontinued: _ __ 1536, A mount of drug administered _ ___ 200ml/hr, N ext Infusion Date Scheduled: 06/04/2023. * Medical History: * Surgical History: Flor toledo, Date of Procedure: Jan 04, 2021; 2021-01-26 * Hospitalization/Major Diagno stic Procedure: * Social History: M igrated Social History: M igrated Social History: :: No Children , Exercise :: None Lately :: note : 01/26/2021 - none lately, was walking, Marital Status :: Single :: note : - [facility] 11/22/2017 , Occupation :: employed :: note : - [facility] 11/22/2017 , Substance Use :: Alcohol-Does not give any significant history , Substance Use :: Tobacco :: Never. * Medications: T akingTylenol 8 Hour 650 MG Tablet Extended Release Oral traZODone HCl 50 MG Tablet prn Oral control pill - name unknown, take 1 tablet daily - , Notes to Pharmacist: *Reorder from [employer] system for eRx and Interaction Alerts*Dupixent Pen 300 mg/2 mL pen injector inject 2 milliliters (300 mg) by subcutaneous route every 2 weeks in the abdomen, thigh, or upper arm rotating injection sites subcutaneous [id number]-67 , Notes to Pharmacist: *Re[facility] from [facility] for eRx and Interaction Alerts*FLUoxetine HCl 20 MG Tablet take 1 tablet (20 mg) by oral route once daily Oral 1 Hydroxychloroquine Sulfate 200 MG Tablet 1 Oral twice a day , stop date 04/07/2024methylPREDNISolone 4 MG Tablet Therapy Pack FOLLOW PACKAGE DIRECTIONS Taking Tylenol 8 Hour 650 MG Tablet Extended Release Oral Taking traZODone HCl 50 MG Tablet prn Oral Taking control pill - name unknown, take 1 tablet daily - , Notes to Pharmacist: *Reorder from [employer] system for eRx and Interaction Alerts*Taking Dupixent Pen 300 mg/2 mL pen injector inject 2 milliliters (300 mg) by subcutaneous route every 2 weeks in the abdomen, thigh, or upper arm rotating injection sites subcutaneous [id number]-92 , Notes to Pharmacist: *Reorder from [employer] system for eRx and Interaction Alerts*Taking FLUoxetine HCl 20 MG Tablet take 1 tablet (20 mg) by oral route once daily Oral 1 Taking Hydroxychloroquine Sulfate 200 MG Tablet 1 Oral twice a day , stop date 04/07/2024Taking methylPREDNISolone 4 MG Tablet Therapy Pack FOLLOW PACKAGE DIRECTIONS * Allergies: K eflex: Allergy - Onset Date 02/17/2022actrim: Allergy - Onset Date 08/25/2017Ceftin: Allergy - Onset Date 02/17/2022 Objective: * Vitals: B P:118/76mm Hg, HR:101/min, Temp:97.9F, Wt:262.8lbs, Wt-k.2 kg, Ht: 68 in, Ht-cm: 172.72 cm, BMI:39.95Index, Body Surface Area: 2.39. Assessment: * Assessment: 1. R heumatoid arthritis without rheumatoid factor, multiple sites - M06.09 (Primary) ? Plan: * Treatment: Value Reference Range B UN 7 6-25 - mg/dL * A LT 31 7-45 - Units/L * A lbumin 4.1 3.5-5.0 - g/dL * A lk Phos 125 40-130 - Units/L * A ST 34 10-45 - Units/L * B gasper Totl 0.5 0.1-1.2 - mg/dL * C alcium 9.5 8.5-10.3 - mg/dL * C hloride 103 97-110 - mmol/L * G lucose 81 70-199 - mg/dL * P otassium Plas 3.7 3.3-4.9 - mmol/L * C O2 Totl 23 22-32 - mmol/L * P rotein Plas 7.0 6.5-8.5 - g/dL * C reatinine 0.82 0.60-1.10 - mg/dL * S odium 141 135-145 - mmol/L * A nion Gap 15 2-15 - mmol/L * This lab was reviewed by Genna Medrano on 02/08/2024 at 07:42 AM CDT ?LAB: CBC w auto diff* Value Reference Range W BC 8.3 3.8-9.9 - K/cumm * R BC 4.48 3.90-5.20 - M/cumm * H gb 13.9 11.9-15.5 - g/dL * H ct 43.2 35.6-45.5 - % * M CV 96.4 81.3-96.4 - fL * M CH 31.0 27.1-33.3 - pg * M CHC 32.2 L 32.3-35.7 - g/dL * P lt 310 150-400 - K/cumm * M PV 10.3 9.1-12.3 - fL * R DW CV 12.5 11.1-14.9 - % * R DW SD 45.0 35.7-48.1 - fL * N RBC Abs Auto 0.00 0.00-0.01 - K/cumm * This lab was reviewed by Genna Medrano on 02/08/2024 at 07:42 AM CDT * Procedure Codes: J 1602 INJECTION GOLIMUMAB 1 MG FOR IV USE, Units: 250.00 41866 THER/PROPH/DIAG IV INF, INIT * Billing Information: * Visit Code: * Procedure Codes: J1602 INJECTION GOLIMUMAB 1 MG FOR IV USE. Units: 250.00. 15850 THER/PROPH/DIAG IV INF, INIT. * Electronically co-signed by Adriana Medrano MD on 02/07/2024 at 04:53 PM CDT Sign off status: Completed true * Provider: Jillian MEDRANO MD Date: 1 Generated for Cherelle kingsley/Anthony/Vick on: 0 06/03/2024 04:29 PM INTERIOR DESIGN TEACHER History and Physical Notes * HPI (History of Present Illness) Category Sub-Category Detail Notes Category Not es Infusion Infusion Record Type of Infusion: ,Simponi Aria What is the dosage: . 250mg How is the dose calculated: . weight bas ed/MD order Authorized by: Dr. Medrano Number of vials to reconstitute: . 5 Infusion type: ,Simponi Aria Amount: . 250mg Electric Motor Assembler: ____ Mohan Expiration date: 06/20 Lot number: ___ [id number] Sterile water (number of vials): . NA Sterile water lot number: ___ NA Sterile water exp. date: NA sterile water MFG: __ NA Pre Infusion Assessment TB Screening Results PPD : Quantiferon TB Gold Results: Negative Chest Xray Results: Recent exposure to TB: Any illness now: ,None Skin Conditon Does the patient has any skin co ndition: no Previous Infusion Date of last infusion: 024 Previous infusion type: ,Simponi Ar ia Reaction: Was patient pre treated: ,NO Response to previous infusion: Yes Pt st ates she feels like her infusions are working. IV INSERTION Catheter brand: ____ Catherter Gauge: ,24 ga Needle Length: ____,3/4 inch IV site accessed: ____ Right AC Number of attempts to access vein/port: . 1 Premedication: NA Time given: ___ NA PATIENT MONITORING Time infusion initated: ___ 1 505 Rate of infusion: ___ 200ml/hr Infusion end time:: 1535 DISPOSITION Time IV discontinued:: ___ 1536 Amount of drug administered: ____ 200ml/ hr Next Infusion Date Scheduled:: 4
--- OUTSIDE RECORDS SUMMARY | 2024-06-03 16:29 | XMS_ITS | Encounter Summary ---
Author Organization [facility] Address [address] [place] [address] Care Team Providers Care Collision Technician Name Role Phone Esvin Loera MD Primary Care Provider [phone] Encounter Details Date Type Department Care Team (Late st Contact Info) Description 02/22/2008 Outpatient [facility] [address] [place] [address] [id number] Social History Tobacco Use Types Packs/Day Years Used Date Smoking Tobacco: Never Assessed Comments Unknown Sex and Gender Information Value Date Recorded Sex Assigned at Not on file Legal Sex Female 

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
--- OUTSIDE RECORDS SUMMARY | 2024-06-03 16:29 | XMS_ITS | Encounter Summary ---
Author Organization [employer] [facility] Address 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 Name Role Phone Esvin Loera MD Primary Care Provider [phone] Encounter Details Date Type Department Care Team (Latest Contact Info) Description 12/12/2008 Outpatient Historical [facility] AND Esvin Rose MD [address] [place] [address] Pain in Joint, Multiple Sites Social History Tobacco Use Types Packs/Day Years Used Date Smoking Tobacco: Every Day Comments:occasionally Alcohol Use Standard Drinks/Week Comments Yes 0 (1 standard drink = 0.6 oz pur e alcohol) occasionally Comments No Sex and Gender Information Value Date Recorded Sex Assigned at Not on file Legal Sex 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
--- OUTSIDE RECORDS SUMMARY | 2024-06-03 16:29 | XMS_ITS | Patient Health Summary ---
Author Organization [facility] Address [address] [place] [address] Care Team Providers Care Heel Nail Rasper Name Role Phone Shayy Church MD Primary Care Provider [phone] Note from [facility],non-owned Affiliates and Associated Physician Practices is amultiple site organization consisting of ambulatory clinics and hospital sitesin [place], [place], [place] and [place]. This disclosure is being madepursuant to the Care Everywhere program and may not contain all information available regarding this patient. Last updated 18.[facility] Allergies * Sulfamethoxazole W-Trimethoprim(Rash,Fever) -Medium Criticality * Cephalexin(Rash) -Medium Criticality Medications * Be aware that medications may not be up to date on this document. Alwaysverify current medications with the patient. * pseudoephedrine-guaiFENesin CR 12hr (MUCINEXD) 60-600 MG tablet Take by mouth once daily as needed * adalimumab (HUMIRA) 40 MG/0.8ML injection(Started 11/15/2016) Inject 40 mg subcutaneously every 14 days * albuterol HFA (PROVENTIL;VENTOLIN;PROAIR) 108 (90 Base) MCG/ACT inhaler (Started 08/09/2018) 4 times daily as needed * Azelastine HCl 137 MCG/SPRAY SOLN(Started 01/14/2019) once daily as needed 3 refills left * BLISOVI 24 FE 1-20 MG-MCG(24) tablet(Started 12/09/2018) Take 1 tablet by mouth once daily 14 refills left * ketorolac (TORADOL) 10 MG tablet(Started 06/11/2019) Take 10 mg by mouth every 4 hours as needed pain * fluticasone propionate (FLONASE) 50 MCG/ACT nasal spray(Started 07/22/2019) as needed * FLUoxetine (PROZAC) 20 MG capsule Take 20 mg by mouth once daily * traZODone (DESYREL) 50 MG tablet Take 50 mg by mouth at bedtime * ondansetron, disintegrating, (ZOFRAN ODT) 4 MG tablet(Started 01/05/2021) Take 1 (one) tablet by mouth every 6 hours as needed for Nausea/Vomiting Allow tablet to dissolve on the tongue * hydroxychloroquine (PLAQUENIL) 25 mg/ml suspension Take 50 mg by mouth 2 times daily Active Problems Problem Noted Date Diagnosed Date Hiatal hernia 01/04/2021 Encounter for colonoscopy du e to history of adenomatous colonic polyps 10/30/2020 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 3 drinks/week Sex and Gender Information Value Date Recorded Sex Assigned at Not on file Gender Identity Not on file Sexual Orientation Not on file Last Filed Vital Signs Vital Sign Reading Time Taken Comments Blood Pressure 117/65 05/24/2021 2:56 PM MOLDER SWEEP Pulse 76 05/24/2021 2:56 PM MOLDER SWEEP Temperature 36.6 C (97.8 F) 05/24/2021 2:56 PM MOLDER SWEEP Respiratory Rate 14 02/17/2021 1:00 PM CDT Oxygen Saturation 100% 05/24/2021 2:56 PM MOLDER SWEEP Inhaled Oxygen Concentration - - Weight 103.4 kg (228 lb) 05/24/2021 2:56 PM MOLDER SWEEP Height 170.2 cm (5' 7 ) 02/17/2021 9:59 AM CDT Body Mass Index 35.71 02/17/2021 9:59 AM CDT Procedures * PATHOLOGY TISSUE(Performed 02/17/2021) Performed for Encounter for colonoscopy due to history of adenomatous colonic polyps * FL COLONOSCOPY, DIAGNOSTIC(Performed 02/17/2021) Performed for Encounter for colonoscopy due to history of adenomatous colonic polyps * ENDOSCOPY, COLON, SCREENING(Performed 02/17/2021) * HCG URINE QUALITATIVE - POCT (IP) INTERFACED(Performed 02/17/2021) * HCG URINE QUAL POCT NOTIFICATION(Performed 02/17/2021) Performed for Preop examination * FL UGI SERIES(Performed 02/04/2021) Performed for Dysphagia, unspecified type * FL UGI SERIES(Performed 01/05/2021) Performed for Hiatal hernia * GLUCOSE - POINT OF CARE(Performed 01/05/2021) * VITAMIN D 25-HYDROXY(Performed 01/05/2021) * CBC W AUTO DIFFERENTIAL(Performed 01/05/2021) * BASIC METABOLIC PANEL (CALCIUM TOTAL)(Performed 01/05/2021) * GLUCOSE - POINT OF CARE(Performed 01/04/2021) * ENDOTRACHEAL TUBE NOTE(Performed 01/04/2021) * FL LAP,ESOPHAGOGAST FUNDOPLASTY(Performed 01/04/2021) * HCG URINE QUALITATIVE(Performed 01/04/2021) Performed for Preop examination * FL UGI SERIES(Performed 11/03/2020) Performed for Gastroesophageal reflux disease without esophagitis * PATHOLOGY TISSUE(Performed 08/25/2020) Performed for Gastroesophageal reflux disease without esophagitis, Dysphagia, unspecified type * FL ED EGD FLEX TRANSORAL DX(Performed 08/25/2020) Performed for Gastroesophageal reflux disease without esophagitis, Dysphagia, unspecified type * EGD(Performed 08/25/2020) * HCG URINE QUALITATIVE - POCT (IP) INTERFACED(Performed 08/25/2020) * HCG URINE QUAL POCT NOTIFICATION(Performed 08/25/2020) Performed for Pre-op testing * C DIFFICILE TOXIN/GDH W REFLX TO PCR(Performed 07/11/2020) Performed for Recurrent Clostridioides difficile diarrhea * CT ABDOMEN PELVIS W CONTRAST(Performed 06/04/2020) Performed for Generalized abdominal pain * CREATININE - POCT INTERFACED(Performed 06/04/2020) * C DIFFICILE TOXIN/GDH W REFLX TO PCR(Performed 04/30/2020) Performed for Diarrhea, unspecified type * COMPREHENSIVE METABOLIC PANEL(Performed 04/28/2020) Performed for Diarrhea, unspecified type * CBC W AUTO DIFFERENTIAL(Performed 04/28/2020) Performed for Diarrhea, unspecified type * C DIFF TOXIN B QL RT PCR RFLXED(Performed 03/17/2020) * C DIFFICILE TOXIN/GDH W REFLX TO PCR(Performed 03/17/2020) Performed for Diarrhea, unspecified type * GASTRIN(Performed 03/13/2020) Performed for Gastroesophageal reflux disease without esophagitis, Diarrhea, unspecified type, Generalized abdominal pain * CBC W AUTO DIFFERENTIAL(Performed 03/13/2020) Performed for Diarrhea, unspecified type * PATHOLOGY TISSUE(Performed 02/17/2020) Performed for Diarrhea, unspecified type * FL COLONOSCOPY, DIAGNOSTIC(Performed 02/17/2020) Performed for Diarrhea, unspecified type * ENDOSCOPY, COLON, DIAGNOSTIC(Performed 02/17/2020) * BASIC METABOLIC PANEL (CALCIUM TOTAL)(Performed 01/15/2020) Performed for Gastroesophageal reflux disease without esophagitis, Diarrhea, unspecified type * CBC W AUTO DIFFERENTIAL(Performed 01/15/2020) Performed for Gastroesophageal reflux disease without esophagitis, Diarrhea, unspecified type * ESOPHAGUS, GASTROESOPHAGEAL REFLUX TEST; WITH NASAL CATHETER PH ELECTRODE PLACEMENT(Performed 02/21/2019) Performed for Gastroesophageal reflux disease, esophagitis presence not specified, Abdominal pain, unspecified abdominal location, Nausea and vomiting, intractability of vomiting not specified, unspecified vomiting type * MOTILITY ESOPHAGEAL(Performed 02/21/2019) Performed for Gastroesophageal reflux disease, esophagitis presence not specified, Abdominal pain, unspecified abdominal location, Nausea and vomiting, intractability of vomiting not specified, unspecified vomiting type * XR FINGERS RIGHT 2VW OR MORE(Performed 01/09/2018) Performed for Bilateral hand pain * XR FINGERS LEFT 2VW OR MORE(Performed 01/09/2018) Performed for Bilateral hand pain Results * PATHOLOGY TISSUE (02/17/2021 11:36 AM CDT) Only the most recent of3 resultswithin the time period is included. Case Report Surgical Pathology Report Case: [id number] Authorizing Provider: Chico Richey MD Collected: 02/17/2021 11:36 AM Ordering Location: [facility] ENDOSCOPY Received: 02/17/2021 01:43 PM Pathologist: Kelsey Grove MD Specimens: A) - Polyp Cecum, cecal polyp B) - Polyp Ascending, ascending colon polyps C) - Polyp Transverse, transverse colon polyps D) - Polyp Sigmoid, sigmoid colon polyp 02/19/2021 1:59 PM [facility] Final Diagnosis Large intestine, cecal polyp, biopsy (A): - Prominent mucosal lymphoid aggregate Large intestine, ascending colon polyps, biopsy (B): - Tubular adenomas Large intestine, transverse colon polyps, biopsy (C): - Tubular adenomas - Lamina propria eosinophil-rich spindle cell lesion Large intestine, sigmoid colon polyp, biopsy (D): - Benign polypoid mucosa 02/19/2021 1:59 PM [facility] Microscopic Description and Comment Microscopic examination substantiates the final diagnosis. One of the non-adenomatous fragments in the transverse colon biopsy has a bland eosinophil-rich spindle cell lesion in the lamina propria, somewhat reminiscent of inflammatory fibroid polyp. Immunostains are pending to rule out other entities such as gastrointestinal stromal tumor and mucosal Schwannian proliferation, and will be reported in an addendum. 02/19/2021 1:59 PM [facility] Clinical History The patient is a 45-year-old woman with a personal history of colonic polyps. Operative procedure/findings: colonoscopy - 1 mm sessile polyp in cecum, resected and retrieved; two sessile polyps in ascending (3, 6 mm), resected and retrieved; three sessile polyps in transverse (2, 3, 3 mm), resected and retrieved; 1 mm sessile polyp in sigmoid, resected and retrieved. 02/19/2021 1:59 PM [facility] Gross Description The requisition and specimen(s) are identified with the patient's name Yumiko Stout. Received in formalin, specimen A , is a 0.3 x 0.3 x 0.2 cm pink-thomas soft tissue, submitted in toto in cassette A1. Received in formalin, specimen B , are 2 pink-thomas soft tissues, 0.5 x 0.3 x 0.2 cm and 0.3 x 0.2 x 0.1 cm, submitted in toto in cassette B1. Received in formalin, specimen C , are 3 pink-thomas soft tissues, 0.3-0.5 cm in greatest dimension and 0.9 x 0.4 x 0.2 cm in aggregate, submitted in toto in cassette C1. Received in formalin, specimen D , is a 0.4 x 0.3 x 0.1 cm pink-thomas soft tissue, submitted in toto in cassette D1. DF 02/19/2021 1:59 PM T [facility] Addendum 1 The transverse colon polyp (C) eosinophil-rich benign spindle cell lesion spindle cells are negative for CD117, S100, desmin, and smooth muscle actin. There is mast cell staining with CD117, nerve twig staining with S100, and blood vessel staining for desmin and smooth muscle actin, so internal as well as external controls stained appropriately. The benign lesion is not a gastrointestinal stromal tumor, a Schwannian proliferation, or a smooth muscle neoplasm. 02/19/2021 1:59 PM [facility] Addendum electronically signed by Kelsey Grove MD on 02/19/2021 at 1:59 PM Disclaimer The performance characteristics of all immunohistochemical and indirect immunofluorescence stains (if any) cited in this report were determined by the Histopathology Laboratory of [facility]. Some of these tests were developed by our own laboratory and have not been cleared or approved by the US Food and Drug Administration. The FDA does not require this test to go through premarket FDA review. These tests are used for clinical purposes. They should not be regarded as investigational or for research. This laboratory is certified under the Clinical Laboratory Improvement Amendments (CLIA) as qualified to perform high complexity clinical laboratory testing. This case has been personally reviewed and interpreted by the attending (teaching) pathologist. 02/19/2021 1:59 PM T [facility] Embedded Images 02/19/2021 1:59 PM CDT [facility] Biopsy, NOS POLYP OF CECUM / Unknown 02/17/2021 11:36 AM CDT 02/17/2021 1:43 PM CDT Comment:Pre-op diagnosis: Z12.11, Z86.010 Encounter for colonoscopy due to history of adenomatous colonic polyps Biopsy, NOS POLYP / Unknown 02/17/2021 1 1:42 AM CDT 02/17/2021 1:43 PM CDT Comment:Pre-op diagnosis: Z12.Espinoza, Z86.010 Encounter for colonoscopy due to history of adenomatous colonic polyps Biopsy, NOS POLYP / Unknown 02/17/2021 1 1:49 AM CDT 02/17/2021 1:43 PM CDT Comment:Pre-op diagnosis: Z12.11, Z86.010 Encounter for colonoscopy due to history of adenomatous colonic polyps Biopsy, NOS POLYP OF SIGMOID COLON / Unknown 02/17/2021 12:09 PM CDT 02/17/2021 1:43 PM CDT Comment:Pre-op diagnosis: Z12.Espinoza, Z86.010 Encounter for colonoscopy due to history of adenomatous colonic polyps Chico Richey MD LAB - PATHOLOGY/CYTO LOGY ORDERABLES Performing Organization Address City/State/[facility] Phone Number [facility] [address] [phone] * ENDOSCOPY, COLON, SCREENING (02/17/2021 11:26 AM CDT) Report Endoscopy POC Endoscopy Department Report _ Patient Name: Yumiko Stout Procedure Date: 02/17/2021 11:26 AM Date of : 1975 Classification: Outpatient Gender: Female Ethnicity: Not or Race: White _ Providers: Chico Richey MD, Isael Mclain (Fellow) Referring MD: Shayy Church (Referring MD) Procedure: Colonoscopy Indications: High risk colon cancer surveillance: Personal history of colonic polyps. Last colonoscopy 01/2020 Medications: Monitored Anesthesia Care Comorbidities GERD, migraine, HTN Description of Procedure: Pre-Anesthesia Assessment: - Prior to the procedure, a History and Physical was performed, and patient medications and allergies were reviewed. The patient is competent. The risks and benefits of the procedure and the sedation options and risks were discussed with the patient. All questions were answered and informed consent was obtained. Patient identification and proposed procedure were verified by the physician and the nurse in the endoscopy suite. Mental Status Examination: alert and oriented. Airway Examination: normal oropharyngeal airway and neck mobility. Respiratory Examination: clear to auscultation. CV Examination: normal. Prophylactic Antibiotics: The patient does not require prophylactic antibiotics. Prior Anticoagulants: The patient has taken no previous anticoagulant or antiplatelet agents. ASA Grade Assessment: II - A patient with mild systemic disease. After reviewing the risks and benefits, the patient was deemed in satisfactory condition to undergo the procedure. The anesthesia plan was to use monitored anesthesia care (MAC). Immediately prior to administration of medications, the patient was re-assessed for adequacy to receive sedatives. The heart rate, respiratory rate, oxygen saturations, blood pressure, adequacy of pulmonary ventilation, and response to care were monitored throughout the procedure. The physical status of the patient was re-assessed after the procedure. After I obtained informed consent, the scope was passed under direct vision. Throughout the procedure, the patient's blood pressure, pulse, and oxygen saturations were monitored continuously. The PCF-H190DL was introduced through the anus and advanced to the cecum, identified by appendiceal orifice and ileocecal valve. The colonoscopy was performed without difficulty. The patient tolerated the procedure well. The quality of the bowel preparation was good. The quality of the bowel preparation was evaluated using the BBPS ([place] Bowel Preparation Scale) with scores of: Right Colon = 2 (minor amount of residual staining, small fragments of stool and/or opaque liquid, but mucosa seen well), Transverse Colon = 3 (entire mucosa seen well with no residual staining, small fragments of stool or opaque liquid) and Left Colon = 2 (minor amount of residual staining, small fragments of stool and/or opaque liquid, but mucosa seen well). The total BBPS score equals 7. The ileocecal valve, appendiceal orifice, and rectum were photographed. Findings: The perianal and digital rectal examinations were normal. A 1 mm polyp was found in the cecum. The polyp was sessile. The polyp was removed with a jumbo cold forceps. Resection and retrieval were complete. A 6 mm polyp was found in the ascending colon. The polyp was sessile. The polyp was removed with a cold snare. Resection and retrieval were complete. A 3 mm polyp was found in the ascending colon. The polyp was sessile. The polyp was removed with a jumbo cold forceps. Resection and retrieval were complete. A 2 mm polyp was found in the transverse colon. The polyp was sessile. The polyp was removed with a jumbo cold forceps. Resection and retrieval were complete. A 3 mm polyp was found in the transverse colon. The polyp was sessile. The polyp was removed with a jumbo cold forceps. Resection and retrieval were complete. A 5 mm polyp was found in the transverse colon. The polyp was sessile. The polyp was removed with a cold snare. Resection and retrieval were complete. A 1 mm polyp was found in the sigmoid colon. The polyp was sessile. The polyp was removed with a jumbo cold forceps. Resection and retrieval were complete. Internal hemorrhoids were found during retroflexion. No additional abnormalities were found on retroflexion. Estimated Blood Loss: Estimated blood loss was minimal. Complications: No immediate complications. Estimated blood loss: Minimal. Impression: 1) A total of 7 polyps were removed as follows: - One 1 mm polyp in the cecum, removed with a jumbo cold forceps. Resected and retrieved. - - One 6 mm polyp in the ascending colon, removed with a cold snare. Resected and retrieved. - One 3 mm polyp in the ascending colon, removed with a jumbo cold forceps. Resected and retrieved. - One 2 mm polyp in the transverse colon, removed with a jumbo cold forceps. Resected and retrieved. - One 3 mm polyp in the transverse colon, removed with a jumbo cold forceps. Resected and retrieved. - One 5 mm polyp in the transverse colon, removed with a cold snare. Resected and retrieved. - One 1 mm polyp in the sigmoid colon, removed with a jumbo cold forceps. Resected and retrieved. 2) Internal hemorrhoids. Recommendation: - Patient has a contact number available for emergencies. The signs and symptoms of potential delayed complications were discussed with the patient. Return to normal activities tomorrow. Written discharge instructions were provided to the patient. - Resume previous diet. - Continue present medications. - Await pathology results. - We recommend repeat colonoscopy in 3 years. Attending Participation: I was present and participated during the entire procedure, including non-colón portions. Procedure Code(s): --- Professional --- 48334, Colonoscopy, flexible; with removal of tumor(s), polyp(s), or other lesion(s) by snare technique 92517, 59, Colonoscopy, flexible; with biopsy, single or multiple Diagnosis Code(s): --- Professional --- Z86.010, Personal history of colonic polyps K63.5, Polyp of colon K64.8, Other hemorrhoids CPT copyright 2019 [employer]. All rights reserved. The codes documented in this report are preliminary and upon metal alloy scientist review may be revised to meet current compliance requirements. Chico Richey MD 02/17/2021 12:34:41 PM This report has been signed electronically. Note Initiated On: 02/17/2021 11:26 AM Number of Addenda: [id number] [place] [address] 02/17/2021 11:2 6 AM CDT Chico Richey MD GI PROCEDURE ORDERAB L[facility] * HCG URINE QUALITATIVE - POCT (IP) INTERFACED (02/17/2021 9:56 AM CDT) Only the most recent of2 resultswithin the time period is included. HCG Qual Urine Negative Negative 02/17/2021 10:03 AM CDT [facility] Urine URINE / Unknown 02/17/2021 9 :56 AM CDT 02/17/2021 10:02 AM CDT Chico Richey MD LAB - POINT OF CARE ORDERABLES Performing Organization Address City/[facility]/ZIP Co de Phone Number [facility] [address] [place] [address], [place] [phone] * HCG URINE QUAL POCT NOTIFICATION (02/17/2021 9:52 AM CDT) Only the most recent of2 resultswithin the time period is included. Comment Notification Label Only - See Separate Report 02/17/2021 11:00 AM CDT [facility] Urine URINE / Unknown 02/17/2021 9 :52 AM CDT 02/17/2021 9:52 AM CDT Chico Richey MD LAB - URINALYSIS ORD ERABLES Performing Organization Address [facility] Co de Phone Number [facility] [address] [place] [address], [facility] [phone] * FL UGI SERIES (02/04/2021 10:03 AM CDT) Only the most recent of3 resultswithin the time period is included. Anatomical Region Laterality Modality Abdomen Radio Fluoroscop y 02/05/2021 9:52 AM CDT Impressions 02/05/2021 10:37 AM CDT Postoperative changes of gastric fundoplication, otherwise normal upper GI. I, Simone Phillips, have personally reviewed the images and I agree with this report. *Reading Radiologist: Simone Phillips on 02/05/2021 at 10:37 AM Narrative 02/05/2021 10:37 AM CDT INDICATION: Dysphagia, recent diaphragmatic hernia repair with gastric fundoplication. COMPARISON: None available. CONTRAST: 50 mL thin barium administered by mouth. FLUOROSCOPY: 2 minutes and 28 seconds FINDINGS: The initiation of deglutition is normal. There are no episodes of aspiration during limited visualization of swallowing. The esophagus demonstrates normal distensibility and peristalsis. There are no intrinsic or extrinsic abnormalities. Postoperative changes of gastric fundoplication are noted. The stomach distends normally and empties promptly. The gastric mucosal pattern is normal. The duodenal sweep is normal. The duodenojejunal junction is in normal position. Procedure Note Simone Phillips MD - 02/05/2021 INDICATION: Dysphagia, recent diaphragmatic hernia repair with gastric fundoplication. COMPARISON: None available. CONTRAST: 50 mL thin barium administered by mouth. FLUOROSCOPY: 2 minutes and 28 seconds FINDINGS: The initiation of deglutition is normal. There are no episodes of aspiration during limited visualization of swallowing. The esophagus demonstrates normal distensibility and peristalsis. There are no intrinsic or extrinsic abnormalities. Postoperative changes of gastric fundoplication are noted. The stomach distends normally and empties promptly. The gastric mucosal pattern is normal. The duodenal sweep is normal. The duodenojejunal junction is in normal position. IMPRESSION Postoperative changes of gastric fundoplication, otherwise normal upper GI. I, Siomne Phillips, have personally reviewed the images and I agree with this report. *Reading Radiologist: Simone Phillips on 02/05/2021 at 10:37 AM Marika Reynoso DRAGGER [facility] FLUOROSCOPY ORDERABLES * GLUCOSE - POINT OF CARE (01/05/2021 6:55 AM CDT) Only the most recent of2 resultswithin the time period is included. Glucose WB/POC 106 70 - 106 mg/dL 01/05/2021 7:28 AM CDT [facility] Specimen Type Cap Fingerstick 2020 7:28 AM CDT [facility] Blood BLOOD SPECIMEN / Unknown 01/05/2021 6:55 AM CDT 01/05/2021 7:28 AM CDT Walt Peña MD LAB - POINT OF CARE ORDERABLES [facility] [address] [place] [address] * (ABNORMAL) VITAMIN D 25-HYDROXY (01/05/2021 4:10 AM CDT) Vitamin D, 25 Hydroxy 20.7(L) 30 - 100 ng/mL 01/05/2021 6:04 AM CDT [facility] Blood BLOOD SPECIMEN / Unknown Venipuncture / Unknown 01/05/2021 4:10 AM CDT 01/05/2021 4:52 AM CDT Narrative [facility] - 01/05/2021 6:04 AM CDT Vitamin D Status: Deficiency <20 ng/mL Insufficiency 20-30 ng/mL Sufficiency 30-100 ng/mL Toxicity >100 ng/mL Walt Peña MD LAB - CHEMISTRY [place] [facility] ([place], [place]) Organization Address City/State/ZIP Co de Phone Number [facility] [address] [place] [address] * (ABNORMAL) CBC W AUTO DIFFERENTIAL (01/05/2021 4:10 AM CDT) Only the most recent of4 resultswithin the time period is included. WBC 7.2 4.4 - 10.7 x10E9/L 01/05/2021 4:58 AM CDT [facility] WBC Corrected 01/05/2021 4:58 AM CDT [facility] RBC 4.52 3.80 - 5.20 x10E12/L 01/05/2021 4:58 AM CDT [facility] Hemoglobin 13.9 12.0 - 15.6 gm/dL 01/05/2021 4:58 AM CDT [facility] Hematocrit 41.5 35.9 - 45.5 % 01/05/2021 4:58 AM CDT [facility] MCV 91.8 80.7 - 98.3 fl 01/05/2021 4:58 AM CDT [facility] MCH 30.8 26.7 - 34.0 pg 01/05/2021 4:58 AM CDT [facility] MCHC 33.5 30.8 - 35.9 gm/dL 01/05/2021 4:58 AM CDT [facility] Platelet Count 242 153 - 416 x10E9/L 01/05/2021 4:58 AM CDT [facility] RDW-CV 12.6 12.1 - 14.9 % 01/05/2021 4:58 AM CDT [facility] MPV 11.1 9.4 - 12.9 fl 01/05/2021 4:58 AM CDT [facility] Neutrophils % 88.7(H) 44.0 - 73.0 % 01/05/2021 4:58 AM CDT [facility] Lymphocytes % 6.8(L) 20.0 - 43.0 % 01/05/2021 4:58 AM CDT [facility] Monocytes % 3.6(L) 5.0 - 13.0 % 01/05/2021 4:58 AM CDT [facility] Eosinophils % 0.0 0.0 - 6.0 % 01/05/2021 4:58 AM CDT [facility] Basophils % 0.3 0.0 - 2.0 % 01/05/2021 4:58 AM CDT [facility] Immature Granulocytes 0.6 0 - 1 % 01/05/2021 4:58 AM CDT [facility] Neutrophil Absolute 6.38 2.01 - 7.14 x10E9/L 01/05/2021 4:58 AM CDT [facility] Lymphocytes Absolute 0.49(L) 1.07 - 3.94 x10E9/L 01/05/2021 4:58 AM CDT [facility] Monocytes Absolute 0.26 0.26 - 1.07 x10E9/L 01/05/2021 4:58 AM CDT [facility] Eosinophils Absolute 0.00 0 - 0.47 x10E9/L 01/05/2021 4:58 AM CDT [facility] Basophils Absolute 0.02 0 - 0.08 x10E9/L 01/05/2021 4:58 AM CDT [facility] Immature Granulocytes Absolute 0.04 0.00 - 0.06 x10E9/L 01/05/2021 4:58 AM CDT [facility] nRBC Auto 0 /100 WBC 01/05/2021 4:58 AM CDT [facility] Blood BLOOD SPECIMEN / Unknown Venipuncture / Unknown 01/05/2021 4:10 AM CDT 01/05/2021 4:52 AM CDT Walt Peña MD LAB - HEMATOLOGY ORD ERABLES [facility] [address] [place] [address] * (ABNORMAL) BASIC METABOLIC PANEL (CALCIUM TOTAL) (01/05/2021 4:10 AM CDT) Only the most recent of2 resultswithin the time period is included. Glucose 159(H) 70 - 105 mg/dL 01/05/2021 5:41 AM CDT [facility] Sodium 133(L) 136 - 145 mmol/L 01/05/2021 5:41 AM CDT [facility] Potassium 4.7 3.5 - 5.1 mmol/L 01/05/2021 5:41 AM CDT [facility] Chloride 105 98 - 107 mmol/L 01/05/2021 5:41 AM CDT [facility] CO2 18(L) 23 - 31 mmol/L 01/05/2021 5:41 AM CDT [facility] Calcium 8.3(L) 8.4 - 10.4 mg/dL 01/05/2021 5:41 AM CDT [facility] Anion Gap 10 8 - 18 mmol/L 01/05/2021 5:41 AM CDT [facility] BUN 5(L) 7 - 18.7 mg/dL 01/05/2021 5:41 AM CDT [facility] Creatinine 0.87 0.57 - 1.11 mg/dL 01/05/2021 5:41 AM CDT [facility] eGFR by MDRD >60 >60 mL/min/1.7 3m2 01/05/2021 5:41 AM CDT [facility] eGFR by MDRD >60 >60 mL/min/1.7 3m2 01/05/2021 5:41 AM CDT [facility] Blood BLOOD SPECIMEN / Unknown Venipuncture / Unknown 01/05/2021 4:10 AM CDT 01/05/2021 4:52 AM CDT Walt Peña MD LAB - CHEMISTRY [place] IVY [facility] [address] [place] [address] * ETT LINE PERFORMABLE (01/04/2021 3:52 PM CDT) Narrative Sachin Lyons APRN-SENIOR LINUX SYSTEMS ADMINISTRATOR - 01/04/2021 3:52 PM CDT Sachin Lyons APRN-ALHAJI 01/04/2021 3:52 PM Endotracheal Tube Placement: Patient Location: OR. Procedure: intubation (28204). Procedure Section: Sedation: under general anesthesia. Indications for Airway Management: anesthesia Procedure pretreatments used? No Induction: rapid sequence and cricoid pressure Patient Position: sniffing Mask Ventilation: not attempted. Blade Type: Iraida Blade Size: 4 Laryngoscopy View: grade 1 (full cords) Intubation Adjuncts: cricoid pressure and stylet Tube: endotracheal tube Placement: oral Tube type: cuff - inflated Tube Size (FR): 7 Depth of Insertion (CM): 22 Measured From: lips Cuff volume (mL): 7 Cuff Inflated With: air Number of Attempts: 1. Placement Verified By: direct visualization, bilateral breath sounds, chest auscultation, CO2 monitor and CO2 detector Tube secured with: adhesive tape. Dentition unchanged? Yes Difficult Airway? No. Staff Section Anesthesia Provider: Sachin Lyons APRN-ALHAJI, Performed the procedure Jovan Rhoades DO GENERAL ANESTHESIA O RDERABLES * HCG URINE QUALITATIVE (01/04/2021 1:10 PM CDT) hCG Qualitative Urine Negative Negative 01/04/2021 1:23 PM CDT [facility] Urine URINE / Unknown Collection / Unknown 01/04/2021 1:10 PM CDT 01/04/2021 1:13 PM CDT Chelsea Rodriguez DO LAB - URINALYSIS ORD ERABLES [facility] [address] [place] [address] * EGD (08/25/2020 11:21 AM CDT) Report Endoscopy POC Endoscopy Department Report __ _ Patient Name: Yumiko Stout Procedure Date: 08/25/2020 11:21 AM Date of : 1975 Classification: Outpatient Gender: Female Ethnicity: Not or Race: White __ _ Providers: Tessa Dillon MD, Lindsey Santiago (Fellow) Referring MD: Shayy Church MD (Referring MD) Procedure: Upper GI endoscopy Indications: Heartburn, Reflux esophagitis despited taking PPI BID and pepcid BID Medications: Monitored Anesthesia Care Description of Procedure: Pre-Anesthesia Assessment: - Prior to the procedure, a History and Physical was performed, and patient medications and allergies were reviewed. The patient is competent. The risks and benefits of the procedure and the sedation options and risks were discussed with the patient. All questions were answered and informed consent was obtained. Patient identification and proposed procedure were verified by the physician, the nurse, the anesthesiologist, the project mgr and the metallurgical lab technician in the procedure room. Mental Status Examination: normal. Airway Examination: normal oropharyngeal airway and neck mobility. Respiratory Examination: clear to auscultation. CV Examination: normal. Prophylactic Antibiotics: The patient does not require prophylactic antibiotics. Prior Anticoagulants: The patient has taken no previous anticoagulant or antiplatelet agents. ASA Grade Assessment: III - A patient with severe systemic disease. After reviewing the risks and benefits, the patient was deemed in satisfactory condition to undergo the procedure. The anesthesia plan was to use monitored anesthesia care (MAC). Immediately prior to administration of medications, the patient was re-assessed for adequacy to receive sedatives. The heart rate, respiratory rate, oxygen saturations, blood pressure, adequacy of pulmonary ventilation, and response to care were monitored throughout the procedure. The physical status of the patient was re-assessed after the procedure. After obtaining informed consent, the endoscope was passed under direct vision. Throughout the procedure, the patient's blood pressure, pulse, and oxygen saturations were monitored continuously. The GIF-H190 was introduced through the mouth, and advanced to the second part of duodenum. The upper GI endoscopy was accomplished without difficulty. The patient tolerated the procedure well. Findings: Esophagogastric landmarks were identified: the Z-line was found at 37 cm, the gastroesophageal junction was found at 38 cm and the site of hiatal narrowing was found at 39 cm from the incisors. LA Grade A (one or more mucosal breaks less than 5 mm, not extending between tops of 2 mucosal folds) esophagitis with no bleeding was found 37 cm from the incisors. One tongue of salmon-colored mucosa was present from 37 to 38 cm. The maximum longitudinal extent of these esophageal mucosal changes was 1 cm in length. This was biopsied with a cold forceps for histology. Striped mildly erythematous mucosa without bleeding was found in the gastric antrum. Biopsies were taken with a cold forceps for histology. Estimated blood loss was minimal. The cardia and gastric fundus were normal on retroflexion. Localized mildly erythematous mucosa without active bleeding and with no stigmata of bleeding was found in the duodenal bulb. The second portion of the duodenum was normal. Estimated Blood Loss: Estimated blood loss was minimal. Complications: No immediate complications. Impression: - Esophagogastric landmarks identified. - LA Grade A reflux esophagitis. - Ulysses-colored mucosa. Biopsied. - Erythematous mucosa in the antrum. Biopsied. - Erythematous duodenopathy. - Normal second portion of the duodenum. Recommendation: - Patient has a contact number available for emergencies. The signs and symptoms of potential delayed complications were discussed with the patient. Return to normal activities tomorrow. Written discharge instructions were provided to the patient. - Discharge patient to home (with escort). - Resume previous diet. - Await pathology results. - Continue present medications. - Return to GI clinic as previously scheduled. Attending Participation: I was present and participated during the entire procedure, including non-colón portions. Procedure Code(s): --- Professional --- 42970, Esophagogastroduode noscopy, flexible, transoral; with biopsy, single or multiple Diagnosis Code(s): --- Professional --- K21.0, Gastro-esophageal reflux disease with esophagitis K22.8, Other specified diseases of esophagus K31.89, Other diseases of stomach and duodenum K26.9, Duodenal ulcer, unspecified as acute or chronic, without hemorrhage or perforation R12, Heartburn CPT copyright 2019 [employer]. All rights reserved. The codes documented in this report are preliminary and upon metal alloy scientist review may be revised to meet current compliance requirements. ___ Tessa Dillon MD 08/25/2020 12:15:04 PM Note Initiated On: 08/25/2020 11:21 AM Number of Addenda: [id number] [place] [address] PROVATION 08/25/2020 11:2 1 AM CDT Tessa Dillon MD GI PROCEDURE ORDER HERBER Performing Organization Address [facility] Co de Phone Number [facility] * C DIFFICILE TOXIN/GDH W REFLX TO PCR (07/11/2020 8:47 AM CDT) Only the most recent of3 resultswithin the time period is included. C difficile Toxin/GDH w/Reflex to PCR [facility] Comment: CLOSTRIDIUM DIFFICILE TOXIN/GDH W/REFL TO PCR Micro Number: [id number] Test Status: Final Specimen Source: STOOL Specimen Quality: Adequate GDH Antigen: Not Detected Toxin A and B: Not Detected COMMENT: No toxigenic C. difficile detected For additional information, please refer to http://education.[employer]/faq/ATD771 (This link is being provided for informational/educational purposes only.) Test Performed at: [facility] [address] CONNIE CASTAÑEDA MD Stool STOOL SPECIMEN / Unknown 07/11/2020 8:47 AM CDT 07/11/2020 8:48 AM CDT Ketty Trent MD LAB - MICROBIOLOG Y ORDERABLES Performing Organization Address [facility] Co de Phone Number [address] [address] * CT ABDOMEN PELVIS W CONTRAST (06/04/2020 3:31 PM MOLDER SWEEP) Anatomical Region Laterality Modality Abdomen, Pelvis Computed Tomogra phy 06/04/2020 3:39 PM MOLDER SWEEP Impressions 06/04/2020 4:05 PM MOLDER SWEEP Impression: 1. No acute findings. 2. 2 sclerotic lesions are seen in the vertebral bodies at the L2 and T9 levels. While the Hounsfield unit values are suggestive of bone islands, the findings are not entirely diagnostic. Correlate with any underlying disease, and consider bone scan evaluation if there is any clinical concern over these areas. Report drafted by Mumtaz Carreon (resident) I, Dr. FCO BROOKS have personally reviewed and interpreted this examination/study. This report was electronically signed by FCO BROOKS on 06/04/2020 4:05 PM . Narrative 06/04/2020 4:05 PM MOLDER SWEEP Procedure Information DATE: 06/04/2020 3:31 PM EXAMINATION: Computed tomography (CT) of the abdomen and pelvis with contrast TECHNIQUE: CT of the abdomen and pelvis was performed following the uneventful administration of 100 mL of Isovue 370 intravenous contrast according to standard protocol. Clinical Information HISTORY: R10.84: Generalized abdominal pain COMPARISON: None. Findings Lower Chest: Normal. Hepatobiliary: The gallbladder is surgically absent. The liver and biliary system appear normal. Pancreas: Normal. Spleen: Normal. Kidneys: Normal. Adrenals: Normal. Retroperitoneum: Normal. Peritoneum: Normal. Gastrointestinal: The stomach and visualized loops of bowel are unremarkable. Appendix: Normal. Pelvic Structures: Normal. Vasculature: Scattered atherosclerotic vasculature changes. There is a sclerotic focus in the right aspect of the L2 vertebral body with average Hounsfield units of 890 and maximum intensity units of greater than 1000. There is a sclerotic focus in the left margin of T9 with average Hounsfield units of 800 and maximum Hounsfield units of 815. Bones: The visible osseous structures are intact. Soft tissues: Normal. Procedure Note Fco Brooks MD - 06/04/2020 Procedure Information DATE: 06/04/2020 3:31 PM EXAMINATION: Computed tomography (CT) of the abdomen and pelvis with contrast TECHNIQUE: CT of the abdomen and pelvis was performed following the uneventful administration of 100 mL of Isovue 370 intravenous contrast according to standard protocol. Clinical Information HISTORY: R10.84: Generalized abdominal pain COMPARISON: None. Findings Lower Chest: Normal. Hepatobiliary: The gallbladder is surgically absent. The liver and biliary systemappear normal. Pancreas: Normal. Spleen: Normal. Kidneys: Normal. Adrenals: Normal. Retroperitoneum: Normal. Peritoneum: Normal. Gastrointestinal: The stomach and visualized loops of bowel are unremarkable. Appendix: Normal. Pelvic Structures: Normal. Vasculature: Scattered atherosclerotic vasculature changes. There is a scleroticfocus in the right aspect of the L2 vertebral body with average Hounsfieldunits of 890 and maximum intensity units of greater than 1000. There is a sclerotic focus in the left margin of T9 with average Hounsfield unitsof 800 and maximum Hounsfield units of 815. Bones: The visible osseous structures are intact. Soft tissues: Normal. Impression: 1. No acute findings. 2. 2 sclerotic lesions are seen in the vertebral bodies at the L2 and T9 levels. While the Hounsfield unit values are suggestive of bone islands, the findings are not entirely diagnostic. Correlate with any underlying disease, and consider bone scan evaluation if there is any clinical concern over these areas. Report drafted by Mumtaz Carreon (resident) I, Dr. FCO BROOKS have personally reviewed and interpreted this examination/study. This report was electronically signed by FCO BROOKS on 06/04/2020 4:05 PM . Fidelia Reynoso MD CT ORDERABLES * CREATININE - POCT INTERFACED (06/04/2020 3:23 PM MOLDER SWEEP) [facility] Creatinine POCT 0.78 0.30 - 1.30 mg/dL 06/04/2020 3:30 PM MOLDER SWEEP [facility] eGFR >60 >60 mL/min/1.7 3 m2 06/04/2020 3:30 PM MOLDER SWEEP [facility] Blood BLOOD SPECIMEN / Unknown 06/04/2020 3:23 PM MOLDER SWEEP 06/04/2020 3:30 PM MOLDER SWEEP Fidelia Reynoso MD LAB - POINT OF CAR E ORDERABLES [facility] [address] [place] [id number], [facility] [phone] * (ABNORMAL) COMPREHENSIVE METABOLIC PANEL (04/28/2020 1:39 PM MOLDER SWEEP) [facility] Glucose 100 65 - 139 mg/dL [facility] Comment: Non-fasting reference interval BUN 9 7 - 25 mg/dL [facility] Creatinine 0.75 0.50 - 1.10 mg/dL [facility] eGFR by MDRD 98 > OR = 60 mL/min/1. 73m2 [facility] eGFR by MDRD 114 > OR = 60 mL/min/1. 73m2 [facility] BUN/Creatinine Ratio NOT APPLICABLE 6 - 22 (calc) [facility] Sodium 135 135 - 146 mmol/L [facility] Potassium 3.8 3.5 - 5.3 mmol/L [facility] Chloride 103 98 - 110 mmol/L [facility] CO2 25 20 - 32 mmol/L [facility] Calcium 9.0 8.6 - 10.2 mg/dL [facility] Protein Total 6.4 6.1 - 8.1 g/dL [facility] Albumin 4.0 3.6 - 5.1 g/dL [facility] Globulin Total 2.4 1.9 - 3.7 g/dL (calc) [facility] Albumin/Globuli n Ratio 1.7 1.0 - 2.5 (calc) [facility] Bilirubin Total 0.6 0.2 - 1.2 mg/dL [facility] Alkaline Phosphatase 87 31 - 125 U/L [facility] AST 22 10 - 30 U/L [facility] ALT 32(H) 6 - 29 U/L [facility] Comment: Test Performed at: [facility] [address] [place] [id number] LIBRADO SAMPSON DO,MPH Blood BLOOD SPECIMEN / Unknown 04/28/2020 1:39 PM MOLDER SWEEP 04/28/2020 1:40 PM MOLDER SWEEP Fidelia Reynoso MD LAB - CHEMISTRY OR DERABLES [facility] [address] [place] [address] * (ABNORMAL) C DIFF TOXIN B QL RT PCR RFLXED (03/17/2020 12:10 PM MOLDER SWEEP) [facility] C difficile Toxin B Gene PCR DETECTED( A) NOT DETECTED [facility] Comment: The stool sample is POSITIVE for toxigenic C. difficile. This result is suggestive of C. difficile infection (CDI) if accompanied by appropriate clinical symptoms. Simultaneous testing does not identify a genetic marker of the hypervirulent 027/NAP1/BI strain of toxigenic C. difficile. This test is for use only with liquid or soft stools; performance characteristics of other clinical specimen types have not been established. This assay was performed by [employer](R) PCR. The performance characteristics of this assay have been determined by [employer]. Performance characteristics refer to the analytical performance of the test. For additional information, please refer to http://Datezr.[employer]/faq/CFG902 (This link is being provided for informational/educational purposes only.) Test Performed at: [facility] [place] [address] [place] [address] LIBRADO SAMPSON DO,MPH 03/17/2020 12:1 0 PM MOLDER SWEEP 03/17/2020 12:11 PM MOLDER SWEEP Yunior Hansen MD LAB - MICROBIOLOGY O RDERABLES Performing Organization Address [facility] de Phone Number [facility] [address] [place] [address] * GASTRIN (03/13/2020 11:49 AM MOLDER SWEEP) Gastrin 64 < OR = 100 pg/mL [facility] Comment: NOTE: Reference range applies to fasting specimen only. For additional information, please refer to http://Datezr.[employer]/faq/XOH869 (This link is being provided for informational/educational purposes only.) Test Performed at: [facility] [address] [place] [address] ANUSHKA HAM MD,PHD,DIANA Blood BLOOD SPECIMEN / Unknown 03/13/2020 11:49 AM MOLDER SWEEP 03/13/2020 11:49 AM MOLDER SWEEP Yunior Hansen MD LAB - CHEMISTRY [place] IVY Performing Organization Address [facility] Co de Phone Number [employer] [address] [place] [address] * ENDOSCOPY, COLON, DIAGNOSTIC (02/17/2020 10:51 AM CDT) Report Endoscopy POC Endoscopy Department Report _ Patient Name: Yumiko Stout Procedure Date: 02/17/2020 10:51 AM Date of : 1975 Classification: Outpatient Gender: Female Ethnicity: Not or Race: White _ Providers: Chico Richey MD, Shane Omalley (Fellow) Referring MD: Shayy Church MD (Referring MD) Procedure: Colonoscopy Indications: Chronic diarrhea Medications: Monitored Anesthesia Care Description of Procedure: Pre-Anesthesia Assessment: - Prior to the procedure, a History and Physical was performed, and patient medications and allergies were reviewed. The patient's tolerance of previous anesthesia was also reviewed. The risks and benefits of the procedure and the sedation options and risks were discussed with the patient. All questions were answered, and informed consent was obtained. Prior Anticoagulants: The patient has taken no previous anticoagulant or antiplatelet agents. ASA Grade Assessment: II - A patient with mild systemic disease. After reviewing the risks and benefits, the patient was deemed in satisfactory condition to undergo the procedure. After I obtained informed consent, the scope was passed under direct vision. Throughout the procedure, the patient's blood pressure, pulse, and oxygen saturations were monitored continuously. The [id number] was introduced through the anus and advanced to the terminal ileum, with identification of the appendiceal orifice and IC valve. The colonoscopy was performed without difficulty. The patient tolerated the procedure well. The quality of the bowel preparation was evaluated using the BBPS (Charenton Bowel Preparation Scale) with scores of: Right Colon = 3 (entire mucosa seen well with no residual staining, small fragments of stool or opaque liquid), Transverse Colon = 3 (entire mucosa seen well with no residual staining, small fragments of stool or opaque liquid) and Left Colon = 3 (entire mucosa seen well with no residual staining, small fragments of stool or opaque liquid). The total BBPS score equals 9. The quality of the bowel preparation was good. The terminal ileum, ileocecal valve, appendiceal orifice, and rectum were photographed. Findings: The perianal and digital rectal examinations were normal. A 8 mm polyp was found in the transverse colon. The polyp was semi-pedunculated . The polyp was removed with a cold snare. Resection and retrieval were complete. A 6 mm polyp was found in the descending colon. The polyp was sessile. The polyp was removed with a cold snare. Resection and retrieval were complete. Six sessile polyps were found in the descending colon. The polyps were 4 to 5 mm in size. These polyps were removed with a cold biopsy forceps. Resection and retrieval were complete. Five sessile polyps were found in the sigmoid colon. The polyps were 2 to 4 mm in size. These polyps were removed with a cold biopsy forceps. Resection and retrieval were complete. The terminal ileum appeared normal. Non-bleeding external internal hemorrhoids were found during retroflexion. The hemorrhoids were large. Normal colonic mucosa. Biopsies were taken with a cold forceps for histology to r/o microscopic colitis. Estimated Blood Loss: Estimated blood loss: none. Complications: No immediate complications. Impression: 1) 13 polyps removed as follows: - One 8 mm polyp in the transverse colon, removed with a cold snare. Resected and retrieved. - One 6 mm polyp in the descending colon, removed with a cold snare. Resected and retrieved. - Six 4 to 5 mm polyps in the descending colon, removed with a cold biopsy forceps. Resected and retrieved. - Five 2 to 4 mm polyps in the sigmoid colon, removed with a cold biopsy forceps. Resected and retrieved. 2) The examined portion of the ileum was normal. 3) Non-bleeding external internal hemorrhoids. 4) Normal colonic mucosa. Biopsied to r/o microscopic colitis given patient's hx of diarrhea over last few months. Recommendation: - Discharge patient to home (ambulatory). - It appears the patient's diarrhea is temporally related to her starting Buspar a few months ago. Recommend she discuss this with pcp and psychiatrist at upcoming visits. - Resume previous diet. - Continue present medications. - Await pathology results. - Repeat colonoscopy in 1 year for surveillance. - Return to GI office as previously scheduled. - Patient has a contact number available for emergencies. The signs and symptoms of potential delayed complications were discussed with the patient. Return to normal activities tomorrow. Written discharge instructions were provided to the patient. Attending Participation: I was present and participated during the entire procedure from insertion to removal of the endoscope. Procedure Code(s): --- Professional --- 37909, Colonoscopy, flexible; with removal of tumor(s), polyp(s), or other lesion(s) by snare technique [id number], 59, Colonoscopy, flexible; with biopsy, single or multiple Diagnosis Code(s): --- Professional --- K63.5, Polyp of colon K64.4, Residual hemorrhoidal skin tags K64.8, Other hemorrhoids K52.9, Noninfective gastroenteritis and colitis, unspecified CPT copyright 2019 [employer]. All rights reserved. The codes documented in this report are preliminary and upon metal alloy scientist review may be revised to meet current compliance requirements. Chico Richey MD 02/17/2020 12:02:06 PM This report has been signed electronically. Note Initiated On: 02/17/2020 10:51 AM Number of Addenda: 0 [facility] [address] [facility] [place] [address] [facility] [employer] 02/17/2020 10:5 1 AM CDT Shane Omalley MD GI PROCEDURE ORDER HERBER [facility] [employer] * XR FINGERS LEFT 2VW OR MORE (01/09/2018 8:05 AM CDT) Anatomical Region Laterality Modality Upper Extremity, Wrist / Hand Ra diographic Imaging 01/09/2018 8:08 AM CDT Narrative 01/09/2018 8:13 AM CDT 3 views left thumb Indication: Left thumb pain FINDINGS: There is joint space narrowing at the basilar joint with mild hypertrophic spurring. There is no fracture, dislocation or osseous destruction. A radiodense foreign body is not identified. Reading Radiologist: Jovan Flowers MD on 01/09/2018 at 8:13 AM Procedure Note Jovan Flowers MD - 01/09/2018 3 views left thumb Indication: Left thumb pain FINDINGS: There is joint space narrowing at the basilar joint with mild hypertrophic spurring. There is no fracture, dislocation or osseous destruction. A radiodense foreign body is not identified. Reading Radiologist: Jovan Flowers MD on 01/09/2018 at 8:13 AM S. Hernandez Adams MD DIAGNOSTIC IMAGING O RDERABLES * XR FINGERS RIGHT 2VW OR MORE (01/09/2018 8:05 AM CDT) Anatomical Region Laterality Modality Upper Extremity, Wrist / Hand Ra diographic Imaging 01/09/2018 8:14 AM CDT Narrative 01/09/2018 8:14 AM CDT 3 views right thumb Indication: Right thumb pain FINDINGS: There is no fracture, dislocation or osseous destruction. Significant erosive changes are not identified. There is early hypertrophic spurring at the interphalangeal joint of the thumb. Reading Radiologist: Jovan Flowers MD on 01/09/2018 at 8:14 AM Procedure Note Jovan Flowers MD - 01/09/2018 3 views right thumb Indication: Right thumb pain FINDINGS: There is no fracture, dislocation or osseous destruction. Significant erosive changes are not identified. There is early hypertrophic spurring at the interphalangeal joint of the thumb. Reading Radiologist: Jovan Flowers MD on 01/09/2018 at 8:14 AM S. Hernandez Adams MD DIAGNOSTIC IMAGING O RDERABLES Care Teams Heel Nail Rasper Relationship Specialty Start Date End Date Shayy Church MD PCP - General Family Medicine 02/21/19
--- OUTSIDE RECORDS SUMMARY | 2024-06-03 16:29 | XMS_ITS | Referral Summary ---
Author Organization [facility] Address [address] [place] [address] Care Team Providers Care Supervisor Typesetting Name Role Phone Shayy Church MD Primary Care Provider [phone] Source Comments [facility],non-owned Affiliates and Associated Physician Practices is amultiple site organization consisting of ambulatory clinics and hospital sitesin [place], [place], [place] and [place]. This disclosure is being madepursuant to the Care Everywhere program and may not contain all information available regarding this patient. Last updated 18.[facility] Allergies Active Allergy Reactions Criticality Noted Date Comments Sulfamethoxazole W-Trimethoprim Rash,Fever Medium 01/22 Cephalexin Rash Medium 01/31/2019 Medications * Be aware that medications may not be up to date on this document. Alwaysverify current medications with the patient. Medication Sig Dispensed Refills Start Date End Date Status pseudoephedrine-g uaiFENesin CR 12hr (MUCINEXD) 60-600 MG tablet Take by mouth once daily as needed Active adalimumab (HUMIRA) 40 MG/0.8ML injection Inject 40 mg subcutaneously every 14 days 11/15/2016 Active albuterol HFA (PROVENTIL;VENTOL IN;PROAIR) 108 (90 Base) MCG/ACT inhaler 4 times daily as needed 08/09/2018 Active Azelastine HCl 137 MCG/SPRAY SOLN once daily as needed 3 01/14/2019 Acti ve BLISOVI 24 FE 1-20 MG-MCG(24) tablet Take 1 tablet by mouth once daily 14 12/09/2018 Active ketorolac (TORADOL) 10 MG tablet Take 10 mg by mouth every 4 hours as needed pain 06/11/2019 Active fluticasone propionate (FLONASE) 50 MCG/ACT nasal spray as needed 07/22/2019 Active FLUoxetine (PROZAC) 20 MG capsule Take 20 mg by mouth once daily Active traZODone (DESYREL) 50 MG tablet Take 50 mg by mouth at bedtime Active ondansetron, disintegrating, (ZOFRAN ODT) 4 MG tablet Take 1 (one) tablet by mouth every 6 hours as needed for Nausea/Vomiting Allow tablet to dissolve on the tongue 30 tablet 01/05/2021 Active hydroxychloroquin e (PLAQUENIL) 25 mg/ml suspension Take 50 mg by mouth 2 times daily Active Active Problems Problem Noted Date Diagnosed Date Hiatal hernia 01/04/2021 Encounter for colonoscopy du e to history of adenomatous colonic polyps 10/30/2020 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 3 drinks/week Sex and Gender Information Value Date Recorded Sex Assigned at Not on file Gender Identity Not on file Sexual Orientation Not on file Last Filed Vital Signs Vital Sign Reading Time Taken Comments Blood Pressure 117/65 05/24/2021 2:56 PM LABORATORY EQUIPMENT INSTALLER Pulse 76 05/24/2021 2:56 PM LABORATORY EQUIPMENT INSTALLER Temperature 36.6 C (97.8 F) 05/24/2021 2:56 PM LABORATORY EQUIPMENT INSTALLER Respiratory Rate 14 02/17/2021 1:00 PM CDT Oxygen Saturation 100% 05/24/2021 2:56 PM LABORATORY EQUIPMENT INSTALLER Inhaled Oxygen Concentration - - Weight 103.4 kg (228 lb) 05/24/2021 2:56 PM LABORATORY EQUIPMENT INSTALLER Height 170.2 cm (5' 7 ) 02/17/2021 9:59 AM CDT Body Mass Index 35.71 02/17/2021 9:59 AM CDT Functional Status Functional Status Response Date of Assess ment Is person deaf or have serious hearing difficult y? No 01/04/2021 Is person blind or have serious difficulty seein g? No 01/04/2021 Does person have serious dif ficulty walking/climbing stairs? No 01/04/2021 Does person have difficulty dressing/bathing? No 01/04/2021 Does person have difficulty doing errands alone? No 01/04/2021 Cognitive Status Response Date of Assessm ent Does person have difficulty concentrating/remembering/making decisions? No 01/04/2021 Plan of Treatment Not on file Goals Goal Patient Goal Type Associated Problems Recent Progress Patient-Stated? Author Medication Management General On track( 021 12:48 PM CDT) No Nanda Rashid, RN Note: Expected end date: ongoing Interventions: Take all medications as prescribed Let your doctor know right away about any changes in your medications Make sure to request a refill of your medication at least one week prior to your last dose Medication Management General No Maxine Ayala, VALENTINO Note: Expected end date: ongoiong Interventions: Take all medications as prescribed Let your doctor know right away about any changes in your medications Make sure to request a refill of your medication at least one week prior to your last dose Procedures Procedure Name Priority Date/Time Associated Diagnosis Comments ENDOSCOPY, COLON, SCREENING Routine 02/17/2021 11:26 AM CDT BASIC METABOLIC PANEL (CALCIUM TOTAL) AM Draw 01/05/2021 4:10 AM CDT from Last 3 Months or Most Recently Relevant to Health Maintenance Results * ENDOSCOPY, COLON, SCREENING (02/17/2021 11:26 AM [...] bowel preparation was evaluated using the BBPS ([place] Bowel Preparation Scale) with scores of: Right [...] non-colón portions. Procedure Code(s): --- Professional --- 40185, Colonoscopy, flexible; with removal of tumor(s), polyp(s), or other lesion(s) by snare technique [id number], 59, Colonoscopy, flexible; with biopsy, single or multiple Diagnosis Code(s): --- Professional --- Z86.010, Personal history of colonic polyps K63.5, Polyp of colon K64.8, Other hemorrhoids CPT copyright 2019 [employer]. All rights reserved. The codes documented in this report are preliminary and upon cnc maintenance technician review may be revised to meet current compliance requirements. Chico Richey MD 02/17/2021 12:34:41 PM This report has been signed electronically. Note Initiated On: 02/17/2021 11:26 AM Number of Addenda: [address] [employer] 02/17/2021 11:2 6 AM CDT Chico Richey MD GI PROCEDURE ORDERAB LES [facility] * (ABNORMAL) BASIC METABOLIC PANEL (CALCIUM TOTAL) (01/05/2021 4:10 AM CDT) Glucose 159(H) 70 - 105 mg/dL 01/05/2021 5:41 AM CDT [facility] Sodium 133(L) 136 - 145 mmol/L 01/05/2021 5:41 AM CDT [facility] Potassium 4.7 3.5 - 5.1 mmol/L 01/05/2021 5:41 AM CDT [facility] Chloride 105 98 - 107 mmol/L 01/05/2021 5:41 AM CDT [facility] CO2 18(L) 23 - 31 mmol/L 01/05/2021 5:41 AM CDT [facility] Calcium 8.3(L) 8.4 - 10.4 mg/dL 01/05/2021 5:41 AM CDT [facility] Anion Gap 10 8 - 18 mmol/L 01/05/2021 5:41 AM CDT [facility] BUN 5(L) 7 - 18.7 mg/dL 01/05/2021 5:41 AM CDT [facility] Creatinine 0.87 0.57 - 1.11 mg/dL 01/05/2021 5:41 AM CDT [facility] eGFR by MDRD >60 >60 mL/min/1.7 3m2 01/05/2021 5:41 AM CDT [facility] eGFR by MDRD >60 >60 mL/min/1.7 3m2 01/05/2021 5:41 AM CDT [facility] Blood BLOOD SPECIMEN / Unknown Venipuncture / Unknown 01/05/2021 4:10 AM CDT 01/05/2021 4:52 AM CDT Walt Peña MD LAB - CHEMISTRY [place] IVY [facility] [address] [place] [address] from Last 3 Months or Most Recently Relevant to Health Maintenance Advance Directives * Full Code (Latest Code Status on File) Date Activated Date Inactivated Comments 01/04/2021 6:52 PM 01/05/2021 7:02 PM Care Teams Supervisor Typesetting Relationship Specialty Start Date End Date Shayy Church MD PCP - General Family Medicine 02/21/19
--- OUTSIDE RECORDS SUMMARY | 2024-06-03 16:29 | XMS_ITS | Encounter Summary ---
Author Organization [facility] Address [address] [place] [address] Care Team Providers Care Wicker Molded Candles Name Role Phone Esvin Loera MD Primary Care Provider [phone] Encounter Details Date Type Department Care Team (Latest Contact Info) Description 03/31/2008 Outpatient Historical [facility] Esvin Rose MD [address] [place] [address] Routine General Medical Examination at a Health Care Facility Social History Tobacco Use Types Packs/Day Years Used Date Smoking Tobacco: Never Alcohol Use Standard Drinks/Week Comments Yes 0 (1 standard drink = 0.6 oz pur e alcohol) Comments No Sex and Gender Information Value Date Recorded Sex Assigned at Not on file 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
--- OUTSIDE RECORDS SUMMARY | 2024-06-03 16:29 | XMS_ITS | Encounter Summary ---
Author Organization [facility] Address [address] [place] [address] Care Team Providers Care Automobile Glass Technician Name Role Phone Esvin Loera MD Primary Care Provider [phone] Encounter Details Date Type Department Care Team (Late st Contact Info) Description 08/08/2007 Outpatient Historical [facility] Medicine [facility] [address] [address] [facility] [address] [facility] [address] [place] [address] [place] [address] [address] [facility] [place] [address] Social History Tobacco Use Types Packs/Day Years Used Date Smoking Tobacco: Never Assessed Comments Unknown Sex and Gender Information Value Date Recorded Sex Assigned at Not on file Legal Sex Female 5:27 AM SEWER HAND Gender Identity Not on file Sexual Orientation Not on file documented as of this encounter Last Filed Vital Signs Vital Sign Reading Time Taken Comments Blood Pressure 112/70 08/08/2007 4:00 PM CDT Pulse 72 08/08/2007 4:00 PM CDT Temperature - - Respiratory Rate - - Oxygen Saturation - - Inhaled Oxygen Concentration - - Weight 108.9 kg (240 lb) 08/08/2007 4:00 PM CDT Height - - Body Mass Index - - documented in this encounter Plan of Treatment Not on file documented as of this encounter Visit Diagnoses Not on filedocumented in this encounter Care Teams Automobile Glass Technician Relationship Specialty Start Date End Date Esvin Loera MD PCP - General 03/07/08 documented as of this encounter
--- OUTSIDE RECORDS SUMMARY | 2024-06-03 16:29 | XMS_ITS | Encounter Summary ---
Author Organization [facility] Address 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
--- OUTSIDE RECORDS SUMMARY | 2024-06-03 16:29 | XMS_ITS | Clinical Summary ---
Author Organization [facility] Address [address] [place] [address] Care Team Providers Care Coin Wrapping Machine Operator Name Role Phone Shayy Church MD Primary Care Provider [phone] Source Comments [facility],non-owned Affiliates and Associated Physician Practices is amultiple site organization consisting of ambulatory clinics and hospital sitesin [place], [place], [place] and [place]. This disclosure is being madepursuant to the Care Everywhere program and may not contain all informatio navailable regarding this patient. Last updated 18.[facility] Allergies Active Allergy Reactions Criticality Noted Date [...] 08/20/2014 Immunizations Name Administration Dates Next Due CovGeogoer primary monoval ent 12+ yr 0.3mL Purple cap 07/14/2020,06/23/2020 Family History Medical History Relation Name Comments Atrial Fibrillation Sister and mitr al valve prolapse. Relation Name Status Comments Sister Social History Tobacco Use Types Packs/Day Years [...] Comments Blood Pressure 117/65 05/24/2021 2:56 PM TIRE REBUILDER Pulse 76 05/24/2021 2:56 PM TIRE REBUILDER Temperature 36.6 C (97.8 F) 05/24/2021 2:56 PM TIRE REBUILDER Respiratory Rate 14 02/17/2021 1:00 PM CDT Oxygen Saturation 100% 05/24/2021 2:56 PM TIRE REBUILDER Inhaled Oxygen Concentration - - Weight 103.4 kg (228 lb) 05/24/2021 2:56 PM TIRE REBUILDER Height 170.2 cm (5' 7 ) 02/17/2021 9:59 AM CDT Body Mass Index 35.71 02/17/2021 9:59 AM CDT Plan of Treatment Health Maintenance Due Date Last Done Comments COLOGUARD (AGES 45-75) - COLON CA SCREENING 1977 CT COLONOGRAPHY - COLON CA SCREENING 1977 FIT - COLON CA SCREENING 1977 FLEX SIG - COLON CA SCREENING 1977 LIPID TESTING 1977 PAP SMEAR 1977 HIV SCREENING 1992 HEPATITIS C SCREENING 06/05/1995 DTAP/TDAP/TD VACCINES (1 - Tdap) 1996 HEPATITIS B VACCINE (1 of 3 - 19+ 3-dose series) 1996 MAMMOGRAM 11/28/2022 11/28/2020 COVID-19 VACCINE (3 - season) 2023 07/14/2020, 06/23/2020 INFLUENZA VACCINE (#1) 2023 1, 01/02/2020, 01/01/2020, Additional history exists SCREENING FOR DIABETES 01/06/2024 1, 01/05/2021, 01/04/2021, Additional history exists DEPRESSION SCREENING 04/24/2024 ZOSTER VACCINE (1 of 2) 2027 COLON MONITORING 02/17/2031 02/17/2021, , 02/17/2020, Additional history exists COLONOSCOPY - COLON CA SCREENING 02/17/2031 02/17/2021, 02/17/2021, 02/17/2020, Additional history exists Colorectal Cancer Screening 02/17/2031 HIB VACCINE Aged Out No longer eligi ble based on patient's age to complete this topic HPV VACCINE Aged Out No longer eligi ble based on patient's age to complete this topic MENINGOCOCCAL (Group B) VACCINE Aged Out No longer eligible based on patient's age to complete this topic MENINGOCOCCAL VACCINE Aged Out No campbell irene eligible based on patient's age to complete this topic PNEUMOCOCCAL VACCINE Aged Out No long er eligible based on patient's age to complete this topic Goals Goal Patient Goal Type Associated Problems Recent Progress Patient-Stated? Author Medication Management General On track( 021 12:48 PM CDT) Nanda Cloud RN Note: Expected end date: ongoing Interventions: Take all medications as prescribed Let your doctor know right away about any changes in your medications Make sure to request a refill of your medication at least one week prior to your last dose Medication Management General Maxine Wharton RN Note: Expected end date: ongoiong Interventions: Take [...] bowel preparation was evaluated using the BBPS ([place] Bowel Preparation Scale) with scores of: Right [...] non-colón portions. Procedure Code(s): --- Professional --- 52444, Colonoscopy, flexible; with removal of tumor(s), polyp(s), or other lesion(s) by snare technique [id number], 59, Colonoscopy, flexible; with biopsy, single or multiple Diagnosis Code(s): --- Professional --- Z86.010, Personal history of colonic polyps K63.5, Polyp of colon K64.8, Other hemorrhoids CPT copyright 2019 [employer]. All rights reserved. The codes documented in this report are preliminary and upon pre coder review may be revised to meet current compliance requirements. Chico Richey MD 02/17/2021 12:34:41 PM This report has been signed electronically. Note Initiated On: 02/17/2021 11:26 AM Number of Addenda: [address] [id number] [facility] [employer] 02/17/2021 11:2 6 AM CDT Chico Richey MD GI PROCEDURE ORDERAB LES [facility] [employer] * (ABNORMAL) BASIC METABOLIC PANEL (CALCIUM TOTAL) (01/05/2021 4:10 AM CDT) Glucose 159(H) 70 - 105 mg/dL 01/05/2021 5:41 AM CDT [facility] Sodium 133(L) 136 - 145 mmol/L 01/05/2021 5:41 AM CDT [facility] Potassium 4.7 3.5 - 5.1 mmol/L 01/05/2021 5:41 AM CDT [facility] Chloride 105 98 - 107 mmol/L 01/05/2021 5:41 AM CDT [facility] CO2 18(L) 23 - 31 mmol/L 01/05/2021 5:41 AM CDT [facility] Calcium 8.3(L) 8.4 - 10.4 mg/dL 01/05/2021 5:41 AM CDT [facility] Anion Gap 10 8 - 18 mmol/L 01/05/2021 5:41 AM CDT [facility] BUN 5(L) 7 - 18.7 mg/dL 01/05/2021 5:41 AM CDT [facility] Creatinine 0.87 0.57 - 1.11 mg/dL 01/05/2021 5:41 AM CDT [facility] eGFR by MDRD >60 >60 mL/min/1.7 3m2 01/05/2021 5:41 AM CDT [facility] eGFR by MDRD >60 >60 mL/min/1.7 2 01/05/2021 5:41 AM CDT [facility] Blood BLOOD SPECIMEN / Unknown Venipuncture / Unknown 01/05/2021 4:10 AM CDT 01/05/2021 4:52 AM CDT Walt Peña MD LAB - CHEMISTRY [place] IV[facility] Organization Address City/State/ZIP Co de Phone Number [facility] [address] [place] [address] from Last 3 Months or Most Recently Relevant to Health Maintenance Advance Directives * Full Code (Latest Code Status on File) Date Activated Date Inactivated Comments 01/04/2021 6:52 PM 01/05/2021 7:02 PM Care Teams Coin Wrapping Machine Operator Relationship Specialty Start Date End Date Shayy Church MD PCP - General Family Medicine 02/21/19
--- OUTSIDE RECORDS SUMMARY | 2024-06-03 16:29 | XMS_ITS | Clinical Summary ---
Author Organization [facility] Address [address] [place] [address] Phone Care Team Providers Care Retort Cooler Name Role Phone Yumiko Perera MD Unavailable [phone] Nanda Ch Primary Care Provider + Lilly Genao APRN, ACQUISITION SPECIALIST Unavailable Jayro Reynolds MD Unavailable Allergies Active Allergy Reactions Criticality Noted Date Comments Sulfamethoxazole-Trimethopr im Hives,Vomiting Medium 04/28/2017 Cefuroxime Rash 02/23/2022 Cephalexin Hives Medium 04/28/2017 Latex Rash 07/01/2022 Sulfamethoxazole Vomiting,Hives Medium Trimethoprim Nausea,Vomiting Medium Other reaction(s): Fever, Vomiting, hives Medications acetaminophen (TYLENOL) 325 MG Tablet Take 325 mg by mouth every 4 hours as needed. Active fluticasone (FLONASE) 50 MCG/ACT Suspension as needed. Active hydroxychloroq uine (PLAQUENIL) 200 MG Tablet Take 200 mg by mouth 2 times daily. Active ARIPiprazole (ABILIFY) 10 MG Tablet TAKE 1 TABLET BY MOUTH EVERY DAY AT BEDTIME 3 Active Lo Loestrin Fe 1 MG-10 MCG / 10 MCG Tablet Take 1 Tablet by mouth daily. 3 Active Dupixent 300 MG/2ML Solution Pen-injector every 14 days. 3 Active lamoTRIgine (LaMICtal) 200 MG Tablet 200 mg daily. FOR FOCUS 3 Active ALPRAZolam (XANAX) 0.5 MG Tablet Take 0.5 mg by mouth 2 times daily as needed. Active montelukast (SINGULAIR) 10 MG Tablet Take 1 Tablet by mouth daily. 90 Tablet 3 4 Active dicyclomine (BENTYL) 20 MG Tablet Take 1 Tablet by mouth every 8 hours as needed for Other (abdominal pain). 90 Tablet 4 Active methocarbamol (ROBAXIN) 750 MG Tablet Take 1 Tablet by mouth 4 times daily as needed (back pain). 30 Tablet 4 Active Golimumab (SIMPONI ARIA IV) by Intravenous route every 6 weeks. Active eszopiclone (LUNESTA) 3 MG Tablet 4 Active atenolol (TENORMIN) 50 MG Tablet Take 1 Tablet by mouth daily. 90 Tablet 3 4 Active ketorolac (TORADOL) 10 MG Tablet Take 1 Tablet by mouth every 6 hours as needed for Moderate or more severe pain. 20 Tablet 4 Active semaglutide-we ight management (WEGOVY) 2.4 MG/0.75ML Solution Auto-injectorI ndications:BMI 40.0-44.9, adult (HCC) 2.4 mg by Subcutaneous route once a week. 3 mL 5 5 Active dilTIAZem (CARDIZEM CD) 240 MG CAPSULE SR 24 HR Take 1 Capsule by mouth daily for 180 days. 30 Capsule 5 5 025 Active semaglutide-we ight management (WEGOVY) 2.4 MG/0.75ML Solution Auto-injectorI ndications:BMI 40.0-44.9, adult (HCC) 2.4 mg by Subcutaneous route once a week. 3 mL 5 4 025 Discontin ued(Reord er) Active Problems Problem Noted Date Diagnosed Date Colon polyps 02/20/2024 Nontraumatic incomplete tear of right rotator cu ff 07/28/2021 Esophagitis 11/29/2017 Class 3 obesity without seri ous comorbidity with body mass index (BMI) of 40.0 to 44.9 in adult 11/29/2017 Anxiety 06/15/2017 Migraine with aura and witho ut status migrainosus, not intractable 06/15/2017 Asthma 11/30/2009 Encounters Date Type Department Care Team Description 05/17/2024 11:00 AM TELEVISION ANALYZER [facility] [address] [facility] [place] [address] Jayro Reynolds MD Tachycardia (Primary Dx) Discharge Disposition: Discharged to home or Selfcare 05/17/2024 Travel 05/15/2024 Telephone [facility] [address]2 [facility] [address] Nanda Ch PAC Prior Authorization 05/15/2024 Travel 05/01/2024 Travel 04/22/2024 Results Follow-Up [facility] [address]2 [facility] [place] [address] Jacki Vogt APRN, SHANNAN 04/05/2024 2:45 PM TELEVISION ANALYZER [facility] [place] [address] Nanda Ch PAC Well adult exam (Primary Dx); Tachycardia; BMI 37.0-37.9, adult Discharge Disposition: Discharged to home or Selfcare 04/05/2024 Travel 04/03/2024 Travel 03/28/2024 Travel 03/14/2024 1:30 PM TELEVISION ANALYZER - 03/14/2024 11:59 PM TELEVISION ANALYZER [facility] [address] [place] [address] Jacki Vogt APRN, ACQUISITION SPECIALIST Discharge Disposition: Discharged to home or Selfcare 03/13/2024 Travel 03/12/2024 3:00 PM TELEVISION ANALYZER [facility] [place] [address] [place] [address] Jacki Vogt APRN, SHANNAN Tachycardia; Syncope, unspecified syncope type Discharge Disposition: Discharged to home or Selfcare 03/11/2024 Travel 03/04/2024 1:15 PM TELEVISION ANALYZER - 03/04/2024 11:59 PM TELEVISION ANALYZER [facility] [address] [place] [address] Nanda Ch, PAC Discharge Disposition: Discharged to home or Selfcare 03/04/2024 12:35 PM TELEVISION ANALYZER - 03/04/2024 1:14 PM TELEVISION ANALYZER [facility] [address] [place] [address] Nanda Ch, PAC Discharge Disposition: Discharged to home or Selfcare from Last 3 Months Immunizations Immunization Administration Dates Next Due Influenza Vaccine 01/02/2020,01/30/2016 Influenza Vaccine greater than 3 yrs 02/2018,01/23/2015,01/20/2014,01/09,12/08/2011,01/27/2011 Influenza Vaccine, MDCK,quad rivalent, pres free 01/08/2023 Influenza Vaccine, Quadrivalent, PF 10/2021,01/12/2021,01/02/2020,12/31,01/30/2019 Influenza, Injectable, Mdck, Preservative Free 12/31/2023 Influenza, Seasonal, Injecta ble, Undefined 02/01/2018 Pneumococcal conjugate PCV20 , polysaccharide [id number] conjugate, adjuvant, PF 05/22/2022 TB Skin Test 03/17/2008 TDAP Vaccine 03/17/2008 Family History Medical History Relation Name Comments Bipolar Disorder Brother 1 No Known Problems Brother 2 No Known Problems Brother 3 No Known Problems Brother 4 No Known Problems Brother 5 Hypertension Father Other-comment Father A-fib Asthma Maternal Grandmother Kaya Gilliam Congestive Heart Failure Maternal Grandmother Kaya Wi lson Migraines Maternal Grandmother Kaya Gilliam No Known Problems Mother Other-comment Paternal Aunt Martina Hayes adrenal issue s Thyroid Disease Paternal Aunt Martina Hayes Autoimmune Disease Paternal Grandfather Eder hayes Thyroid Disease Paternal Grandfather Eder hayes No Known Problems Sister 1 Defects Sister 2 defect h eart Relation Name Status Comments Brother 1 Alive Brother 2 Alive Brother 3 Alive Brother 4 Alive Brother 5 Alive Father Alive Maternal Grandfather Maternal Grandmother Kaya Gilliam Mother Alive Paternal Aunt Martina Hayes Paternal Grandfather Eder hayes Paternal Grandmother Sister 1 Alive Sister 2 Social History Tobacco Use Types Packs/Day Years Used Date Smoking Tobacco: Never Smokeless Tobacco: Never Tobacco Cessation:Counseling Given: Not Answered Alcohol Use Standard Drinks/Week Comments No 0 (1 standard drink = 0.6 oz pur e alcohol) Personal choice [facility] Utilities Answer Date Recorded In the past 12 months has [employer] electric, gas, oil, or water company threatened to shut off services in your home? No 01/03/2024 Social Connection and Isolat ion Panel [NHANES] Answer Date Recorded In a typical week, how many times do you talk on the phone with family, friends, or neighbors? More than three times a week 01/03/2024 How often do you get togethe r with friends or relatives? More than three times a week 01/03/2024 How often do you attend chur ch or orthodox services? More than 4 times per year 01/03/2024 Do you belong to any clubs o r organizations such as restorationist groups, unions, fraternal or athletic groups, or school groups? No 01/03/2024 How often do you attend meet ings of the clubs or organizations you belong to? Patient declined 01/03/2024 Are you , , di vorced, , never , or living with a partner? Never 01/03/2024 AUDIT-C Answer Date Recorded Q1: How often do you have a drink containing alcohol? Never 01/03/2024 Q2: How many drinks containi ng alcohol do you have on a typical day when you are drinking? Patient does not drink Q3: How often do you have si x or more drinks on one occasion? Never 01/03/2024 Overall Financial Resource Strain (CARDIA) Answe r Date Recorded How hard is it for you to pa y for the very basics like food, housing, medical care, and heating? Somewhat hard 01/03/2024 PHQ-2 Answer Date Recorded Total Score - Questions 1-9 0 12/23 [facility] - Occupational Stress Questionnaire Answer Date Recorded Do you feel stress - tense, restless, nervous, or anxious, or unable to sleep at night because your mind is troubled all the time - these days? Very much 01/03/2024 Exercise Vital Sign Answer Date Recorde d On average, how many days pe r week do you engage in moderate to strenuous exercise (like a brisk walk)? 5 days 01/03/2024 On average, how many minutes do you engage in exercise at this level? 60 min 01/03/2024 Hunger Vital Sign Answer Date Recorded Within the past 12 months, y ou worried that your food would run out before you got the money to buy more. Never true 01/03/20 24 Within the past 12 months, t he food you bought just didn't last and you didn't have money to get more. Never true 01/03/2024 PRAPARE - Transportation Answer Date Re corded In the past 12 months, has l ack of transportation kept you from medical appointments or from getting medications? No 12/23 In the past 12 months, has l ack of transportation kept you from meetings, work, or from getting things needed for daily living? No 01/03/2024 Housing Stability Vital Sign Answer Sourav e Recorded In the last 12 months, was t here a time when you were not able to pay the mortgage or rent on time? No 06/14/2023 In the last 12 months, how many places have you lived? 1 06/14/2023 In the last 12 months, was t here a time when you did not have a steady place to sleep or slept in a assisted (including now)? No 06/14/2023 Housing Stability Vital Sign Answer Sourav e Recorded In the last 12 months, was t here a time when you were not able to pay the mortgage or rent on time? No 01/03/2024 In the past 12 months, how m any times have you moved where you were living? 1 01/03/2024 At any time in the past 12 m [facility], were you homeless or living in a assisted (including now)? No 01/03/2024 Education Answer Date Recorded What is the highest level of school you have completed or the highest degree you have received? 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 on file Not on file Not on file Last Filed Vital Signs Vital Sign Reading Time Taken Comments Blood Pressure 128/68 05/17/2024 11:01 AM TELEVISION ANALYZER Pulse 118 05/17/2024 11:01 AM TELEVISION ANALYZER Temperature 36.7 C (98.1 F) 05/17/2024 11:01 AM TELEVISION ANALYZER Respiratory Rate 18 05/17/2024 11:01 AM TELEVISION ANALYZER Oxygen Saturation 97% 05/17/2024 11:01 AM TELEVISION ANALYZER Inhaled Oxygen Concentration - - Weight 108 kg (238 lb) 05/17/2024 11:01 AM TELEVISION ANALYZER Height 172.7 cm (5' 8 ) 05/17/2024 11:01 AM TELEVISION ANALYZER Body Mass Index 36.19 05/17/2024 11:01 AM TELEVISION ANALYZER Plan of Treatment Upcoming Encounters Date Type Department Care Team (Late st Contact Info) Description 06/11/2024 7:00 AM TELEVISION ANALYZER Appointment [facility] Mammography [address] [place] [address] Nanda Ch, PAC [address] [place] [address] 10/04/2024 3:00 PM CDT [facility] [address]2 [place] [address] Nanda Ch, PAC [address] [place] [address] Health Maintenance Due Date Last Done Comments HPV/Cotest 2007 Td Immunization Every 10 Years (Adults With 1 Tdap) 03/17/2018 03/17/2008 SARS-COV-2 Immunization (7 - Pfizer risk season) 2024 12/31/2023, 01/13/2023, 02/09/2022, Additional history exists Cervical Cancer Screening (CCS) 07/04/2026 Pap Smear 07/04/2026 07/05/2023, 11/03/2020 Colonoscopy 02/19/2034 02/20/2024, 01/23, 02/17/2021, Additional history exists Colorectal Cancer Screening 02/19/2034 Respiratory Syncytial Virus (RSV) Immunization (Adult) (1 - 1-dose 75+ series) 2052 02/20/2024, 01/23, 02/17/2021, Additional history exists Pneumococcal Immunization Combined Completed 05/22/2022 Discussion re Starting/Frequency of Mammograms Completed 2023, 05/04/2022, 11/28/2020, Additional history exists Influenza Immunization Completed , 01/08/2023, 01/28/2022, Additional history exists Hepatitis B Immunization Discontinued Hepatitis C Virus (HCV) Screening Discontinued Meningococcal Immunization (ACWY) Aged Out No longer eligible based on patient's age to complete this topic Rotavirus Immunization Aged Out No lo nger eligible based on patient's age to complete this topic Goals Goal Patient Goal Type Associated Problems Recent Progress Patient-Stated? Author Patient to have decrease in the frequency and intensity of anxious symptoms over next 10 sessions Behavioral Health On track(2020 11:26 AM TELEVISION ANALYZER) No Roro Monae, CHEMIST INSTRUMENTATION Note: to have reduction of anxiety symptoms. Goal Reviewed with: patient Readiness to change: Thinking about making a change Department associated with goal: [facility] Steps to achieve goal: to attend monthly, counseling sessions. to identify, verbalize and process at least three contributing factors/triggers to anxiety. to identify and verbalize at least three actions/skills to prevent and/or cope with anxiety. to put into action, at least one time weekly, for one month, an action/skill to prevent and or cope with anxiety. Procedures Procedure Name Priority Date/Time Associated Diagnosis Comments ELECTROCARDIOGRAM, COMPLETE Today 05/17/2024 11:00 AM TELEVISION ANALYZER Tachycardia CBC WITH AUTO DIFFERENTIAL Routine 03/28/2024 8:44 AM TELEVISION ANALYZER Laboratory exam ordered as part of routine (Adult) medical examination LIPID PANEL Routine 03/28/2024 8:44 AM TELEVISION ANALYZER Laboratory exam ordered as part of routine (Adult) medical examination THYROID STIMULATING HORMONE (TSH) Routine 03/28/2024 8:44 AM TELEVISION ANALYZER Laboratory exam ordered as part of routine (Adult) medical examination COMPLETE BLOOD COUNT (CBC) WITH DIFF Routine 03/28/2024 8:44 AM TELEVISION ANALYZER Laboratory exam ordered as part of routine (Adult) medical examination CMP (COMPREHENSIVE METABOLIC PANEL) Routine 03/28/2024 8:44 AM TELEVISION ANALYZER Laboratory exam ordered as part of routine (Adult) medical examination EVENT RECORDER, 30-DAY Routine 03/14/2024 1:46 PM TELEVISION ANALYZER Tachycardia THYROXINE (T4) FREE Routine 03/14/2024 1 :07 PM TELEVISION ANALYZER Tachycardia ADULT TRANS THORACIC ECHO 2D COMPLETE Routine 03/04/2024 1:33 PM TELEVISION ANALYZER Palpitations HOLTER MONITOR RECORDING 48 HOUR Routine 03/04/2024 1:30 PM TELEVISION ANALYZER Palpitations LYRIC SCREENING BILATERAL DIGITAL W CAD W UTE Routine 2023 10:45 AM TELEVISION ANALYZER Encounter for screening mammogram for breast cancer [facility] COLONOSCOPY 02/17/2021 12:00 AM CDT from Last 3 Months or Most Recently Relevant to Health Maintenance Results * ELECTROCARDIOGRAM, COMPLETE (05/17/2024 11:00 AM TELEVISION ANALYZER) Narrative Jayro Reynolds MD - 05/17/2024 11:00 AM TELEVISION ANALYZER Jayro Reynolds MD 05/17/2024 4:21 PM Rhythm:Sinus tachycardia ST and T changes: none Possible LAE Jayro Reynolds MD IMG ECG ORDERABLES Final Result * (ABNORMAL) CBC WITH AUTO DIFFERENTIAL (03/28/2024 8:44 AM TELEVISION ANALYZER) WBC 6.88 4.00 - 12.00 10(3)/mcL 03/28/2024 10:16 AM [facility] RBC 4.66 3.80 - 5.30 10(6)/mcL 03/28/2024 10:16 AM [facility] HEMOGLOBIN (HGB) 14.6 12.0 - 15.8 g/dL 03/28/2024 10:16 AM [facility] HEMATOCRIT (HCT) 42.6 36.0 - 47.0 % 03/28/2024 10:16 AM [facility] MCV 91.4 82.0 - 96.0 fL 03/28/2024 10:16 AM [facility] MCH 31.3 26.0 - 34.0 pg 03/28/2024 10:16 AM [facility] MCHC 34.3 31.0 - 36.0 g/dL 03/28/2024 10:16 AM [facility] PLATELET COUNT 346 140 - 440 10(3)/[facility] 03/28/2024 10:16 AM [facility] RDW 12.3 11.8 - 15.5 % 03/28/2024 10:16 AM [facility] MPV 10.1 9.7 - 12.4 fL 03/28/2024 10:16 AM [facility] NEUTROPHILS 67.8 47.0 - 73.0 % 03/28/2024 10:16 AM [facility] LYMPHOCYTES 18.6 18.0 - 42.0 % 03/28/2024 10:16 AM [facility] MONOCYTES 10.0 4.0 - 12.0 % 03/28/2024 10:16 AM [facility] EOSINOPHILS 2.0 0.0 - 5.0 % 03/28/2024 10:16 AM [facility] BASOPHILS 1.6(H) 0.0 - 1.0 % 03/28/2024 10:16 AM [facility] ABSOLUTE NEUTROPHILS 4.66 1.60 - 7.70 10(3)/[facility] 03/28/2024 10:16 AM [facility] ABSOLUTE LYMPHOCYTES 1.28(L) 1.30 - 3.20 10(3)/[facility] 03/28/2024 10:16 AM [facility] ABSOLUTE MONOCYTES 0.69 0.20 - 1.00 10(3)/[facility] 03/28/2024 10:16 AM [facility] ABSOLUTE EOSINOPHIL 0.14 0.00 - 0.40 10(3)/[facility] 03/28/2024 10:16 AM [facility] ABSOLUTE BASOPHILS 0.11(H) 0.00 - 0.10 10(3)/[facility] 03/28/2024 10:16 AM [facility] NRBC PER 100 WBC 0 03/28/20 10:16 AM [facility] Blood Venipuncture / Unknown 03/28/2024 8:44 AM [facility] 03/28/2024 9:55 AM [facility] us Nanda Ch PAC HEMATOLOGY ORDERABLES Fi nal Result [facility] [address] [place] [address] * THYROID STIMULATING HORMONE (TSH) (03/28/2024 8:44 AM [facility]) TSH 0.571 0.300 - 5.000 mIU/L 03/28/2024 10:42 AM [facility] Blood Venipuncture / Unknown 03/28/2024 8:44 AM TELEVISION ANALYZER 03/28/2024 9:55 AM TELEVISION ANALYZER us Nanda Chantao PAC CHEMISTRY ORDERABLES Fin al Result Performing Organization Address City/[facility] Co de Phone Number [facility] [address] [place] [address] * (ABNORMAL) LIPID PANEL (03/28/2024 8:44 AM TELEVISION ANALYZER) CHOLESTEROL 172 <200 mg/dL 03/28/2024 10:24 AM TELEVISION ANALYZER [facility] TRIGLYCERIDES 99 <150 mg/dL 03/28/2024 10:24 AM TELEVISION ANALYZER [facility] HDL CHOLESTEROL 42 >40 mg/dL 10:24 AM [facility] LDL 110 <130 mg/dL 03/28/2024 10:24 AM [facility] VLDL 20 10 - 50 mg/dL 03/28/2024 10:24 AM [facility] CHOL/HDL RATIO 4.1 0.0 - 4.4 03/28/2024 10:24 AM [facility] NON-HDL CHOLESTEROL 130(H) <130 mg/dL 03/28/2024 10:24 AM [facility] IS THE PATIENT REQUIRED TO BE FASTING? No 03/28/2024 10:24 AM [facility] Blood Venipuncture / Unknown 03/28/2024 8:44 AM TELEVISION ANALYZER 03/28/2024 9:55 AM TELEVISION ANALYZER us Nanda Ch PAC CHEMISTRY ORDERABLES Fin al Result Performing Organization Address City/[facility]/ZIP Co de Phone Number [facility] [address] [place] [address] * (ABNORMAL) CMP (COMPREHENSIVE METABOLIC PANEL) (03/28/2024 8:44 AM TELEVISION ANALYZER) SODIUM 138 136 - 145 mmol/L 03/28/2024 10:24 AM [facility] POTASSIUM 3.5 3.5 - 5.1 mmol/L 03/28/2024 10:24 AM [facility] CHLORIDE 102 98 - 107 mmol/L 03/28/2024 10:24 AM [facility] CO2, VENOUS 25 22 - 30 mmol/L 03/28/2024 10:24 AM [facility] ANION GAP 14.5 <18.0 mmol/L 03/28/2024 10:24 AM [facility] GLUCOSE 84 70 - 99 mg/dL 03/28/2024 10:24 AM [facility] BUN 6 5 - 18 mg/dL 03/28/2024 10:24 AM [facility] CREATININE, BLOOD 0.75 0.60 - 1.00 mg/dL 03/28/2024 10:24 AM [facility] BUN/CREATININE RATIO 8(L) 12 - 20 ratio 03/28/2024 10:24 AM [facility] TOTAL PROTEIN 6.8 6.3 - 8.2 g/dL 03/28/2024 10:24 AM [facility] ALBUMIN 4.0 3.5 - 5.0 g/dL 03/28/2024 10:24 AM [facility] A/G RATIO 1.4 1.0 - 2.2 03/28/2024 10:24 AM [facility] CALCIUM 9.5 8.7 - 10.5 mg/dL 03/28/2024 10:24 AM [facility] T BILI 1.2 0.2 - 1.2 mg/dL 03/28/2024 10:24 AM [facility] SGOT (AST) 41(H) 5 - 34 U/L 03/28/2024 10:24 AM [facility] SGPT (ALT) 33 0 - 55 U/L 03/28/2024 10:24 AM [facility] ALKALINE PHOSPHATASE 131 40 - 150 U/L 03/28/2024 10:24 AM TELEVISION ANALYZER [facility] IS THE PATIENT REQUIRED TO BE FASTING? No 03/28/2024 10:24 AM TELEVISION ANALYZER [facility] GFR, ESTIMATED >60 >=60 03/28/2024 10:24 AM TELEVISION ANALYZER [facility] Comment: Creatinine Clearance is the preferred criteria for selecting drug dose adjustments in renally impaired patients. The GFR is provided as additional pertinent clinical information. GFR is reported in mL/min/1.73 sq m. Calculation based on the Chronic Kidney Disease Epidemiology Collaboration (CKD- EPI) equation refit without adjustment for race. GFR, EST. >60 >=60 024 10:24 AM TELEVISION ANALYZER [facility] GFR, EST. NONAFRICAN >60 >=60 03/28/2024 10:24 AM TELEVISION ANALYZER [facility] Blood Venipuncture / Unknown 03/28/2024 8:44 AM TELEVISION ANALYZER 03/28/2024 9:55 AM TELEVISION ANALYZER us Nanda Ch PAC CHEMISTRY ORDERABLES Fin al Result [facility] [address] [place] [address] * EVENT RECORDER, 30-DAY (03/14/2024 1:46 PM TELEVISION ANALYZER) Anatomical Region Laterality Modality CARDIO N/A Electrocardiogra phy Narrative 04/18/2024 4:38 PM TELEVISION ANALYZER The patient underwent outpatient event recording from March 14, 2024 to April 12, 2024. Diagnostic rhythm was noted 97% of the time. The dominant rhythm is normal sinus with rates ranging from 54-160 beats per minute and averaging 90 beats per minute. There is no evidence of high-grade SA anay or AV anay block. There is no evidence of ventricular tachyarrhythmia. Several episodes of sinus tachycardia are noted. There is no evidence of paroxysmal supraventricular tachycardia. One episode of atrial flutter versus baseline artifact is noted on 03/15/2024 at 1:54 p.m. The patient reported shortness of breath and lightheadedness. The ventricular rate was 94 beats per minute, narrow-complex and regular. I cannot exclude baseline artifact versus atrial flutter during this episode. SUMMARY: Normal sinus rhythm. Sinus tachycardia seen 16% of the time. One questionable episode of atrial flutter versus baseline artifact. Job: [id number] Procedure Note Lazaro Ibrahim MD - 04/18/2024 The patient underwent outpatient event recording from March 14, 2024 toApril 12, 2024. Diagnostic rhythm was noted 97% of the time. The dominant rhythm is normal sinus with rates ranging from 54-160 beatsper minute and averaging 90 beats per minute. There is no evidence of high-grade SA anay or AV anay block. There is no evidence of ventricular tachyarrhythmia. Several episodes of sinus tachycardia are noted. There is no evidence ofparoxysmal supraventricular tachycardia. One episode of atrial flutter versus baseline artifact is noted on03/15/2024 at 1:54 p.m. The patient reported shortness of breath andlightheadedness. The ventricular rate was 94 beats per minute,narrow-complex and regular. I cannot exclude baseline artifact versusatrial flutter during this episode. SUMMARY: Normal sinus rhythm. Sinus tachycardia seen 16% of the time. One questionable episode of atrial flutter versus baseline artifact. Job: [id number] Jacki Vogt APRN, SHANNA[facility] IMG ECG ORDERA BLES Final Result * THYROXINE (T4) FREE (03/14/2024 1:07 PM TELEVISION ANALYZER) T4 FREE 0.9 0.7 - 1.9 ng/dL 03/14/2024 4:22 PM TELEVISION ANALYZER [facility] Blood Venipuncture / Unknown 03/14/2024 1:07 PM TELEVISION ANALYZER 03/14/2024 3:31 PM TELEVISION ANALYZER Jacki Vogt APRN, [facility] CHEMISTRY ORDE CATA Final Result [facility] [address] [place] [address] * ADULT TRANS THORACIC ECHO 2D COMPLETE (03/04/2024 1:33 PM TELEVISION ANALYZER) AV Peak Grad mmHg 5.66 mmHg RESULTING AGENCY Mean Aortic Valve Gradient (MAVG) 3 mmHg RESULTING AGENCY LV end niraj diam cm 4.8 cm RESULTING AGENCY LV end sys diam cm 3.5 cm RESULTING AGENCY Aortic Root Diam cm 1.9 cm RESULTING AGENCY LA vol index ml/m2 16 ml/m2 RESULTING AGENCY LVOT Peak Eleazar m/sec 0.757 m/sec RESULTING AGENCY AV Peak Eleazar m/sec 1.19 m/sec RESULTING AGENCY MV Mean Grad mmHg 1 mmHg RESULTING AGENCY MVA by PHT cm2 3.19 cm2 RESUL TING AGENCY E/A Ratio 0.69 RESULTING AGENCY E/E' 5.1 RESULTING AGENCY AV Area (VTI) cm2 2.65 cm2 RESULTING AGENCY SEPTUM DIASTOLIC CM 0.8 cm RESULTING AGENCY PW DIASTOLIC CM 0.9 cm RESU LTING AGENCY LA VOLUME 36.7 ml RESULTING AGENCY Anatomical Region Laterality Modality CARDIO N/A Ultrasound Narrative 03/05/2024 8:34 AM TELEVISION ANALYZER Transthoracic Echocardiography Report (TTE) Patient name ARGELIA Hill Alysia 1975 Patient ID (UPI) [id number] Indications: Palpitations. Study Date03/04/2024 Technical quality: Limited visualization Limitation Reason: Dense Tissue Type of Study: TTE procedure: Adult Trans Thoracic Echo 2D Complete. Priority:RoutineHR: 94 bpmBP: 96/58 mmHg Contrast Medium: Lumason. Amount - 3 ml Conclusions Summary The left ventricle is normal in size. Wall thickness is normal. LV function is low normal. There are no regional wall motion abnormalities. LV EF of 50-55%. Grade I diastolic dysfunction. Findings Mitral Valve The mitral valve is normal. There is no evidence of mitral stenosis. There is no significant mitral regurgitation. Aortic Valve The aortic valve is trileaflet with normal leaflet excursion. There is no evidence of aortic valve stenosis. There is no significant aortic valve insufficiency. Tricuspid Valve The tricuspid valve is normal. There is no evidence of tricuspid stenosis. Trace tricuspid valve regurgitation. Insufficient TR jet to estimate PASP. Pulmonic Valve The pulmonic valve structure appears normal. There is no evidence of pulmonic stenosis. Trace pulmonic regurgitation. Left Atrium The left atrium size is normal. Left Ventricle The left ventricle is normal in size. Wall thickness is normal. LV function is low normal. There are no regional wall motion abnormalities. LV EF of 50-55%. Grade I diastolic dysfunction. Right Atrium The right atrium size is normal. Right Ventricle Normal right ventricular cavity size and normal systolic function. Pericardial Effusion The pericardium is normal. There is no pericardial effusion visualized. Miscellaneous Aortic root and proximal ascending aorta are normal in size. Atrial septum appears intact. IVC is normal in size and respiratory response. Aortic arch appears normal. Valves Mitral Valve Area (PHT): 3.19 cm^2 Area (continuity): 3.61 cm^2 Peak E-Wave: 0.50 m/s Mean Velocity: 0.49 m/s Peak A-Wave: 0.72 m/s Mean Gradient: 1 mmHg Peak Gradient: 1 mmHg Deceleration Time: 236 msec P1/2t: 69 msec Tissue Doppler E' Velocity: 0.05 m/s E/E':5.1 E/A Ratio: 0.69 E/Lat E': 5.1 E/Med E':9 Aortic Valve Area (continuity): 2.65 cm^2 Mean Velocity: 0.84 m/s Area (VTI):2.65 cm^2 Mean Gradient: 3 mmHg Peak Velocity: 1.19 m/s AV VTI: 18.8 cm Peak Gradient: 5.66 mmHg Tricuspid Valve Peak E-Wave: 0.64 m/s Peak Gradient: 1.67 mmHg Pulmonic Valve Peak Velocity: 1.02 m/s Mean Velocity: 0.74 m/s Peak Gradient: 4.16 mmHg Mean Gradient: 2 mmHg LVOT Peak Velocity: 0.75 m/s Mean Velocity: 0.51 m/s Peak Gradient: 2 mmHg Mean Gradient: 1 mmHg LVOT Diameter: 2.1 cm LVOT VTI: 14.4 cm Stroke Volume: 50 ml Stroke Volume Index: 21.83 ml/m^2 Structures Left Ventricle Diastolic Dimension: 4.8 cm Systolic Dimension: 3.5 cm Septum Diastolic: 0.8 cm Septum Systolic: 1.5 cm PW Diastolic: 0.9 cm PW Systolic: 1.4 cm Diastolic Length: 26.4 cm Systolic Length: 15.7 cm EF Calculated: 56.91% CI: 2.05 l/min*m^2 CO: 4.69 l/min RWT: 0.38 LV EDV: 86.1 ml FS: 27.08 % LV EDV Index: 38 m^2 LV Length: 7.55 cm LV ESV: 37.1 ml LVOT Diameter: 2.1 cm LV ESV Index: 16 m^2 Right Ventricle RVOT (PLAX) diameter:4.1 cm Tissue Doppler RV S': 10.4 TAPSE: 2.26 cm Left Atrium LA Systolic Pressure: 8.33 mmHg LA Area: 17.3 cm^2 LA Volume: 36.7 ml LA Index: 16ml/m^2 Right Atrium RA Area: 10.3 cm^2 Great Vessels Aorta Ascending Aorta: 2.7 cm Aorta Root:1.9 cm Ascending Aorta Index:1.18 cm/m^2 Demographics Age 48 Gender Female Race Height 67.99 in. Weight 262 lbs. 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 Study Date03/04/2024 Technical quality: Limited visualization Limitation Reason: Dense Tissue Type of Study: TTE procedure: Adult Trans Thoracic Echo 2D Complete. Priority:RoutineHR: 94 bpmBP: 96/58 mmHg Contrast Medium: Lumason. Amount - 3 ml Conclusions Summary The left ventricle is normal in size. Wall thickness is normal. LV function is low normal. There are no regional wall motion abnormalities. LV EF of 50-55%. Grade I diastolic dysfunction. Findings Mitral Valve The mitral valve is normal. There is no evidence of mitral stenosis. There is no significant mitral regurgitation. Aortic Valve The aortic valve is trileaflet with normal leaflet excursion. There is no evidence of aortic valve stenosis. There is no significant aortic valve insufficiency. Tricuspid Valve The tricuspid valve is normal. There is no evidence of tricuspid stenosis. Trace tricuspid valve regurgitation. Insufficient TR jet to estimate PASP. Pulmonic Valve The pulmonic valve structure appears normal. There is no evidence of pulmonic stenosis. Trace pulmonic regurgitation. Left Atrium The left atrium size is normal. Left Ventricle The left ventricle is normal in size. Wall thickness is normal. LV function is low normal. There are no regional wall motion abnormalities. LV EF of 50-55%. Grade I diastolic dysfunction. Right Atrium The right atrium size is normal. Right Ventricle Normal right ventricular cavity size and normal systolic function. Pericardial Effusion The pericardium is normal. There is no pericardial effusion visualized. Miscellaneous Aortic root and proximal ascending aorta are normal in size. Atrial septum appears intact. IVC is normal in size and respiratory response. Aortic arch appears normal. Valves Mitral Valve Area (PHT): 3.19 cm^2 Area (continuity): 3.61 cm^2 Peak E-Wave: 0.50 m/s Mean Velocity: 0.49 m/s Peak A-Wave: 0.72 m/s Mean Gradient: 1 mmHg Peak Gradient: 1 mmHg Deceleration Time: 236 msec P1/2t: 69 msec Tissue Doppler E' Velocity: 0.05 m/s E/E':5.1 E/A Ratio: 0.69 E/Lat E': 5.1 E/Med E':9 Aortic Valve Area (continuity): 2.65 cm^2 Mean Velocity: 0.84 m/s Area (VTI):2.65 cm^2 Mean Gradient: 3 mmHg Peak Velocity: 1.19 m/s AV VTI: 18.8 cm Peak Gradient: 5.66 mmHg Tricuspid Valve Peak E-Wave: 0.64 m/s Peak Gradient: 1.67 mmHg Pulmonic Valve Peak Velocity: 1.02 m/s Mean Velocity: 0.74 m/s Peak Gradient: 4.16 mmHg Mean Gradient: 2 mmHg LVOT Peak Velocity: 0.75 m/s Mean Velocity: 0.51 m/s Peak Gradient: 2 mmHg Mean Gradient: 1 mmHg LVOT Diameter: 2.1 cm LVOT VTI: 14.4 cm Stroke Volume: 50 ml Stroke Volume Index: 21.83 ml/m^2 Structures Left Ventricle Diastolic Dimension: 4.8 cm Systolic Dimension: 3.5 cm Septum Diastolic: 0.8 cm Septum Systolic: 1.5 cm PW Diastolic: 0.9 cm PW Systolic: 1.4 cm Diastolic Length: 26.4 cm Systolic Length: 15.7 cm EF Calculated: 56.91% CI: 2.05 l/min*m^2 CO: 4.69 l/min RWT: 0.38 LV EDV: 86.1 ml FS: 27.08 % LV EDV Index: 38 m^2 LV Length: 7.55 cm LV ESV: 37.1 ml LVOT Diameter: 2.1 cm LV ESV Index: 16 m^2 Right Ventricle RVOT (PLAX) diameter:4.1 cm Tissue Doppler RV S': 10.4 TAPSE: 2.26 cm Left Atrium LA Systolic Pressure: 8.33 mmHg LA Area: 17.3 cm^2 LA Volume: 36.7 ml LA Index: 16ml/m^2 Right Atrium RA Area: 10.3 cm^2 Great Vessels Aorta Ascending Aorta: 2.7 cm Aorta Root:1.9 cm Ascending Aorta Index:1.18 cm/m^2 Demographics Age 48 Gender Female Race Height 67.99 in. Weight 262 lbs. 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 Yinka Singh Interpreting Patrice Willis Referring Physician Nasir CORTES Physician Alice Zaragoza us Nanda Ch PAC IMG ECHO ORDERABLES Lisa l Result * HOLTER MONITOR RECORDING & ANALYSIS-48 HOUR (03/04/2024 1:30 PM TELEVISION ANALYZER) Anatomical Region Laterality Modality CARDIO N/A Electrocardiogra phy Narrative 03/04/2024 2:00 PM TELEVISION ANALYZER Jade Lobo MD 03/08/2024 9:58 AM Cardiac Holter monitor report-[facility] Shaji: Duration of monitorin hours and 15 minutes Dates of monitoring: March 05, 2024 Diagnosis: Palpitations Findings: - Heart rate range from 48 to 144 beats per minute. Average heart rate 87 bpm - Underlying rhythm: Sinus rhythm - Events recorded: Patient triggered events: 11 All patient activations for fast heartbeat, dizziness or lightheadedness correlated with sinus rhythm and sinus tachycardia up to 129 beats per minute Arrhythmias: 1. Atrial fibrillation: None 2. SVT : None 3. Pauses: None 4. Heart block: None 5. VT: None 6. PAC burden: Less than 1% 7. PVC burden: Less than 1% Impression: No significant arrhythmias reported. Patient's symptoms/activations correlated with sinus rhythm or sinus tachycardia Jade Lobo MD, [facility] Interventional and Structural Cardiology [facility] Health Dry Cell Testermanager hi [employer] Email: [email or web address] Office phone: [phone] Shaji ([place]) Office: [phone] Procedure Note Jade Lobo MD - 03/04/2024 2:00 PM CST Cardiac Holter monitor report-[facility] Shaji: Duration of monitorin hours and 15 minutes Dates of monitoring: March 05, 2024 Diagnosis: Palpitations Findings: - Heart rate range from 48 to 144 beats per minute. Average heart rate 87bpm - Underlying rhythm: Sinus rhythm - Events recorded: Patient triggered events: 11 All patient activations for fast heartbeat, dizziness or lightheadednesscorrelated with sinus rhythm and sinus tachycardia up to 129 beats perminute Arrhythmias: 1. Atrial fibrillation: None 2. SVT : None 3. Pauses: None 4. Heart block: None 5. VT: None 6. PAC burden: Less than 1% 7. PVC burden: Less than 1% Impression: No significant arrhythmias reported. Patient's symptoms/activationscorrelated with sinus rhythm or sinus tachycardia Jade Lobo MD, [facility], [facility] Interventional and Structural Cardiology [facility] Dry Cell Testermanager hi [employer] [facility] Email: [email or web address] Office phone: [phone] [place] ([place]) Office: [phone] us Nanda Ch PAC IMG ECG ORDERABLES Final Result * LYRIC SCREENING BILATERAL DIGITAL W CAD W UTE (2023 10:45 AM TELEVISION ANALYZER) Anatomical Region Laterality Modality breast Bilateral Mammography 2023 10:1 9 AM TELEVISION ANALYZER Narrative 06/12/2023 9:19 AM TELEVISION ANALYZER - LYRIC SCREENING BILATERAL DIGITAL W CAD W UTE BILATERAL DIGITAL SCREENING MAMMOGRAM 3D/2D WITH CAD WITH MEDIOLATERAL OBLIQUE CRANIOCAUDAL: 2023 The study was acquired using digital technology and interpreted from soft copy. Current study was also evaluated with ICAD version 7.2. 2D digital mammographic views, as well as 3D digital tomosynthesis were performed in the CC and MLO projections. CLINICAL: Routine screening. Patient has no complaints. No personal history of cancer. No family history of breast cancer. COMPARISONS: Comparison is made to exams dated: 05/04/2022, 11/28/2020 [facility], and [facility] BREAST TISSUE:The tissue of both breasts is predominantly fatty. FINDINGS: There are benign calcifications in both breasts. No significant masses, calcifications, or other findings are seen in either breast. There has been no significant interval change. IMPRESSION: BI-RAD 2 BENIGN There is no mammographic evidence of malignancy. A 1 year screening mammogram is recommended. A letter will be sent to the patient with these results. The patient will be entered into a reminder system with a target due date of 1 year for her next screening exam. Electronically signed by: Dariela graham/gordon:2023 16:44:21 Medical Dir(s): RT Maggy(R)(M), [facility] letter sent: Normal Exam Reading location: [facility] BI-RADS: 2 Benign Procedure Note Dariela Martell MD - 06/12/2023 - LYRIC SCREENING BILATERAL DIGITAL W CAD W UTE BILATERAL DIGITAL SCREENING MAMMOGRAM 3D/2D WITH CAD WITH MEDIOLATERAL OBLIQUE CRANIOCAUDAL: 2023 The study was acquired using digital technology and interpreted from soft copy. Current study was also evaluated with ICAD version 7.2. 2D digital mammographic views, as well as 3D digital tomosynthesis were performed in the CC and MLO projections. CLINICAL: Routine screening. Patient has no complaints. No personal history of cancer. No family history of breast cancer. COMPARISONS: Comparison is made to exams dated: 05/04/2022, 11/28/2020 [facility], and 11/04/2019 [facility]. BREAST TISSUE:The tissue of both breasts is predominantly fatty. FINDINGS: There are benign calcifications in both breasts. No significant masses, calcifications, or other findings are seen in either breast. There has been no significant interval change. IMPRESSION: BI-RAD 2 BENIGN There is no mammographic evidence of malignancy. A 1 year screening mammogram is recommended. A letter will be sent to the patient with these results. The patient will be entered into a reminder system with a target due date of 1 year for her next screening exam. Electronically signed by: Dariela graham/gordon:2023 16:44:21 Medical Dir(s): RT Maggy(R)(M), [facility] letter sent: Normal Exam Reading location: [facility] BI-RADS: 2 Benign us Shayy Church MD IMG MAMMO ORDERABLES Final Result * HM COLONOSCOPY (02/17/2021 12:00 AM CDT) 02/17/2021 us Shayy Church MD PROCEDURE/MINOR SURGICAL OR DERABLES Final Result SCAN from Last 3 Months or Most Recently Relevant to Health Maintenance Insurance Care Teams Retort Cooler Relationship Specialty Start Date End Date Nanda Ch PAC [address] [place] [address] PCP - General Physician Drywall Finishing Foreman 04/10/23 Yumiko Perera MD Consulting Physician Obstetrics & Gynecology 11/29/17 Lilly Genao APRN, ACQUISITION SPECIALIST [address] [place] [address] Nurse Practitioner Advanced Practice Nurse 11/24/22 Jayro Reynolds MD [address] [address] Consulting Physician Clinical Cardiac Electrophysiology 05/17/24
--- OUTSIDE RECORDS SUMMARY | 2024-06-03 16:29 | XMS_ITS | Encounter Summary ---
Author Organization [facility] Address [address] [place] [address] Care Team Providers Care Newspaper Stuffer Name Role Phone Esvin Loera MD Primary Care Provider [phone] Encounter Details Date Type Department Care Team (Late st Contact Info) Description 07/09/2007 Outpatient Historical [facility] Medicine [facility] [address] [place] [address] [place] 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
--- OUTSIDE RECORDS SUMMARY | 2024-06-03 16:29 | XMS_ITS | Encounter Summary ---
Author Organization [facility] Address [address] [place] [address] Care Team Providers Care Automobile Brakes Bonder Name Role Phone Esvin Loera MD Primary Care Provider [phone] Encounter Details Date Type Department Care Team (Late st Contact Info) Description 02/26/2008 Outpatient [facility] [address] [place] [address] [id number] Social History Tobacco Use Types Packs/Day Years Used Date Smoking Tobacco: Never Assessed Comments Unknown Sex and Gender Information Value Date Recorded Sex Assigned at Not on file Legal Sex Female 5:27 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
--- OUTSIDE RECORDS SUMMARY | 2024-06-03 16:29 | XMS_ITS | Encounter Summary ---
Author Organization [facility] Address [address] [place] [address] Care Team Providers Care Medicaid Specialist Name Role Phone Esvin Loera MD Primary Care Provider [phone] Encounter Details Date Type Department Care Team (Late st Contact Info) Description 07/24/[address] [facility] Medicine [facility] [address] [place] [address] [place] [address] [place] [address] Social History Tobacco Use Types Packs/Day Years Used Date Smoking Tobacco: Never Assessed Comments Unknown Sex and Gender Information Value Date Recorded Sex Assigned at Not on file Legal Sex Female 5:27 AM HOST Gender Identity Not on file Sexual Orientation Not on file documented as of this encounter Plan of Treatment Not on file documented as of this encounter Visit Diagnoses Not on filedocumented in this encounter Care Teams Medicaid Specialist Relationship Specialty Start Date End Date Esvin Loera MD PCP - General 03/07/08 documented as of this encounter
--- OUTSIDE RECORDS SUMMARY | 2024-06-03 16:29 | XMS_ITS | Encounter Summary ---
Author Organization [facility] Address [address] [place] [address] Care Team Providers Care Air Conditioning Technician Name Role Phone Esvin Loera MD Primary Care Provider [phone] Encounter Details Date Type Department Care Team (Late st Contact Info) Description 01/03/2007 Outpatient Historical [facility] Family Medicine [facility] [address] [place] [address] [place] 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 Gender Identity Not on file Sexual Orientation Not on file documented as of this encounter Last Filed Vital Signs Vital Sign Reading Time Taken Comments Blood Pressure 116/66 01/03/2007 3:30 PM CDT Pulse 60 01/03/2007 3:30 PM CDT Temperature 37 C (98.6 F) 01/03/2007 3:30 PM CDT Respiratory Rate - - Oxygen Saturation - - Inhaled Oxygen Concentration - - Weight 106.6 kg (235 lb) 01/03/2007 3:30 PM CDT Height - - Body Mass Index - - documented in this encounter Plan of Treatment Not on file documented as of this encounter Visit Diagnoses Not on filedocumented in this encounter Care Teams Air Conditioning Technician Relationship Specialty Start Date End Date Esvin Loera MD PCP - General 03/07/08 documented as of this encounter
--- OUTSIDE RECORDS SUMMARY | 2024-06-03 16:29 | XMS_ITS | Clinical Summary ---
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 Active loratadine (CLARITIN) 10 mg Oral tabletIndicatio ns:Acute pharyngitis,All ergic rhinosinusitis, Acute serous otitis media Take 1 Tab by mouth daily. 30 Tab 2 07/10/19 10 Active GLUCOSAM SUL NA/CHONDR LOU A NA (GLUCOSAMINE & CHONDROIT SUL.NA ORAL) Take by mouth. Ac tive citalopram (CELEXA) 10 mg tabletIndicatio ns:Anxiety state, unspecified TAKE 1 TABLET BY MOUTH EVERY DAY. 30 Tab 11 07/17/19 15 Active SUMAtriptan (IMITREX) 100 mg tabletIndicatio ns:Migraine with aura Take 1 Tab (100 mg) by mouth see administration instructions may repeat in 2 hours; max dose 200mg in 24 hours. 9 Tab 3 07/17/19 15 Active ondansetron (ZOFRAN ODT) 4 mg Tablet, Rapid DissolveIndicat ions:Migraine with aura Place 1 Tab (4 mg) under tongue every 8 hours as needed for Nausea/Emesis. 30 Tab 1 07/17/19 15 Active Acetaminophen-C aff-Butalbital 50-325-40 mg Capsule TAKE 1 CAPSULE BY MOUTH EVERY 8 HOURS NEEDED FOR HEADACHE 30 Cap 0 12/09/19 15 Active amitriptyline (ELAVIL) 50 mg tabletIndicatio ns:Migraine with aura and without status migrainosus, not intractable Take 1 Tablet (50 mg) by mouth daily at bedtime. 30 Tablet 3 01/24/20 15 Active Norethindrn A-E estradiol-Iron (LOESTRIN 24 FE) 1 mg-20 mcg (24)/75 mg (4) tablet Take 1 Tablet by mouth daily. 28 Tablet 2 01/29/20 15 Active diazepam (VALIUM) 2 mg tablet TAKE 1 TABLET BY MOUTH TWICE DAILY NEEDED FOR HEADACHE 30 Tablet 0 04/01/20 15 Active traMADol (ULTRAM) 50 mg tablet TAKE 2 TABLETS BY MOUTH EVERY 8 HOURS NEEDED FOR PAIN 60 Tablet 0 04/01/20 15 Active Active Problems Problem Noted Date Diagnosed Date Morbid obesity with BMI of 40.0-44.9, adult 10/2014 Generalized anxiety disorder 01/23/2015 Essential hypertension, benign 08/20/2014 Obesity (BMI 30.0-34.9) 08/20/2014 Asthma 11/30/2009 Migraine with aura 09/08/2008 Resolved Problems Problem Noted Date Diagnosed Date Resolved Date History of cholecystectomy 01/29/2010 0 07/05/2010 Cat scratch 11/30/2009 12/07/2009 Drug reaction 11/30/2009 12/07/2009 Nausea 11/30/2009 12/30/2009 Anxiety state, unspecified 03/30/2009 1 Neck pain 09/08/2008 05/18/2009 Respiratory abnormality, unspecified 08/08/2007 03/07/2008 Exercise induced bronchospasm 07/24/2007 05/30/2008 Acute sinusitis, unspecified 07/09/2007 03/07/2008 Immunizations Immunization Administration Dates Next Due (ADACEL/BOOSTRIX)(10 YR UP) TDAP VACCINE, 0.5ML, IM 03/17/2008 Influenza Vaccine Split 3+ Yrs IM 01/20/2014 Influenza Vaccine Split 3+ Yrs PF IM 05/2014,01/09/2013,12/08/2011,2010 Skin Test TB 03/17/2008 Family History Medical History Relation Name Comments Healthy Father Healthy Mother Relation Name Status Comments Father Alive Mother Alive Social History Tobacco Use Types Packs/Day Years Used Date Smoking Tobacco: Former Cigarettes 0 11/20/2006 - 11/20/2010 Smokeless Tobacco: Never Comments:occasionallyweekend s--1 pack per month Alcohol Use Standard Drinks/Week Comments Yes 0 (1 standard drink = 0.6 oz pur e alcohol) rare Comments No Sex and Gender Information Value Date Recorded Sex Assigned at Not on file Legal Sex Female 5:27 AM [employer] Gender Identity Not on file Sexual Orientation Not on file Last Filed Vital Signs Vital Sign Reading Time Taken Comments Blood Pressure 126/80 01/28/2015 3:45 PM CDT Pulse 89 01/28/2015 2:01 PM CDT Temperature 37.2 C (99 F) 01/28/2015 2:01 PM CDT Respiratory Rate 16 01/28/2015 2:01 PM CDT Oxygen Saturation 98% 01/28/2015 2:01 PM CDT Inhaled Oxygen Concentration - - Weight 124.7 kg (275 lb) 01/28/2015 3:45 PM CDT Height 172.7 cm (5' 8 ) 01/28/2015 3:45 PM CDT Body Mass Index 41.81 01/28/2015 3:45 PM CDT Plan of Treatment Health Maintenance Due Date Last Done Comments HEPATITIS B VACCINES (1 of 3 - 19+ 3-dose series) 1996 Pre-Diabetes and Diabetes Screening 12/02/2016 12/02/2013 CERVICAL CANCER SCREENING 03/04/20172013, 03/03/2014 (Previously completed), 03/23/2011 (Previously completed) BREAST CANCER SCREENING 2017 DTAP/TDAP/TD VACCINES (2 - Td or Tdap) 03/17/2018 03/17/2008 FIT-DNA Q 3 years 2022 FIT/FOBT Q 1 year 2022 Flex Sig/CT Colonography Q 5 years 2022 INFLUENZA VACCINE (#1) 2023 5, 01/20/2014, 01/09/2013, Additional history exists COLORECTAL SCREENING 02/16/2030 02/17/2020, 12/17/19 10 Colorectal Cancer Screening 02/16/2030 HPV VACCINES Aged Out No longer eligi ble based on patient's age to complete this topic Procedures Procedure Name Priority Date/Time Associated Diagnosis Comments CERV/VAG CYTOPATH, THIN PREP W/RFLX HPV Routine 03/04/2014 HEMOGLOBIN A1C Routine 12/02/2013 2:06 PM CDT Elevated glucose from Last 3 Months or Most Recently Relevant to Health Maintenance Results * CERV/VAG CYTOPATH, THIN PREP W/RFLX HPV (03/04/2014) Endocervical Moris Cuellar MD PATHOLOGY/CYTOLOGY ORDERABLES E dited Result - Final Performing Organization Address [facility] Co de Phone Number [facility]# [id number] [address] [place] [address] * HEMOGLOBIN A1C (12/02/2013 2:06 PM CDT) HEMOGLOBIN A1C 5.6 <5.7 % of total Hgb [facility] Comment: According to ADA guidelines, hemoglobin A1c <7.0% represents optimal control in non- diabetic patients. Different metrics may apply to specific patient populations. Standards of Medical Care in Diabetes-2013. Diabetes Care. 2013;36:s11-s66 For the purpose of screening for the presence of diabetes <5.7% Consistent with the absence of diabetes 5.7-6.4% Consistent with increased risk for diabetes (prediabetes) >or=6.5% Consistent with diabetes This assay result is consistent with a decreased risk of diabetes. Currently, no consensus exists for use of hemoglobin A1c for diagnosis of diabetes for children. Test Performed at: [facility] [id number] [place] [address] TONY SAMPSON DO,MPH Blood specimen (specimen) 12/02/2013 2:06 PM CDT us Esvin Loera MD CHEMISTRY ORDERABLES Final Res ult Performing Organization Address City/[facility]/ZIP Co de Phone Number INTERFACE SYSTEM Refer to clinic/hospital department [facility] [address] [place] [address] from Last 3 Months or Most Recently Relevant to Health Maintenance Insurance [facility] OPEN ACCESS HMO Advance Directives For more information, please contact: [phone] * Full Code (Latest Code Status on File) Date Activated Date Inactivated Comments 01/15/2010 2:33 PM 01/16/2010 2:31 AM * Full Code Date Activated Date Inactivated Comments 01/15/2010 12:00 PM 01/15/2010 2:33 PM * Full Code Date Activated Date Inactivated Comments 12/16/2009 12:17 PM 12/17/2009 2:32 AM * Full Code Date Activated Date Inactivated Comments 11/30/2009 12:06 PM 12/01/2009 12:34 PM Care Teams Interstate Bus Dispatcher Relationship Specialty Start Date End Date Esvin Loera MD PCP - General 03/07/08
--- OUTSIDE RECORDS SUMMARY | 2024-06-03 16:29 | XMS_ITS | Encounter Summary ---
Author Organization [facility] Address [address] [place] [address] Care Team Providers Care Carbon Coating Machine Operator Name Role Phone Esvin Loera MD Primary Care Provider [phone] Encounter Details Date Type Department Care Team (Late st Contact Info) Description 07/31/2007 Outpatient Historical [facility] Medicine [facility] [address] [facility] [address] [place] [address] Suzie Jacobsen MD [address] [place] [facility] [place] [address] Social History Tobacco Use Types Packs/Day Years Used Date Smoking Tobacco: Never Assessed Comments Unknown Sex and Gender Information Value Date Recorded Sex Assigned at Not on file 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
[2024-06-03 17:23] LABS: Beta HCG Quantitative < 2.39 mIU/ML
== END 2024-06-03 16:26 | disposition home or self-care (01) ==
LOC: ANHLAB 16:26
PROVIDERS: PCP Obstetrics & Gynecology; Visit Provider Obstetrics & Gynecology
DX: N92.6 Irregular menstruation, unspecified (principal)
CPT/HCPCS: 36415; 84702